=== PATIENT | male | born 1940 | race Hispanic/Latino ===

== ENCOUNTER 2016-05-20 21:12 | Inpatient (IN) | payer MEDICARE ==
[2016-05-20] MEDS ORDERED: ATROPINE IV ONE (23:45)
--- NOTE | 2016-05-20 23:48 | Emergency Department Report ---
ED Abdominal Pain HPI - General Chief Complaint: Abdominal Pain Stated Complaint: CONSTIPATION/FOOT SWELLING Time Seen by Provider: 05/20/16 23:28 Source: patient Mode of arrival: Ambulatory Limitations: No Limitations - History of Present Illness Initial Comments: This is a 75-year-old gentleman who reports some increasing abdominal pain since Tuesday. He reports seeing his physician on Tuesday for the abdominal discomfort as well as on Tuesday. He was noted when he was in the sun Tuesday to have a slightly low heart rate at 54. He was told that if likely due to the eyedrops that he is on for his glaucoma. Patient reports having less frequent stooling but is still soft. He reports normal urination. He also reports some increased edema of his lower extremities over the same time period. He denies any chest pain he has had occasional shortness of breath. He denies any fevers. No nausea or vomiting. Normal appetite. Location: diffuse Migration to: no migration Severity: moderate Severity scale (0 -10): 9 Quality: dull Consistency: constant Improves With: nothing Worsens With: nothing Associated Symptoms: denies: nausea, vomiting, diarrhea, fever - Related Data Home Medications Medication Instructions Recorded Confirmed Last Taken Aspirin [Adult Low Dose Aspirin EC] 81 mg PO QDAY 02/12/15 05/21/16 Unknown Multivitamin Tab [Multiple Vitamin 1 each PO QDAY 02/12/15 05/21/16 Unknown TAB (Theragran)] Albuterol 2 mg PO BID 05/21/16 05/21/16 Unknown Allergy 180 mg PO DAILY 05/21/16 05/21/16 Unknown Breo Ellipta 100-25 Mcg INH 1 puff IH 05/21/16 05/21/16 Unknown Dorzolamide HCl 1 drop OU TID 05/21/16 05/21/16 Unknown Latanoprost 0.005% 1 drop OU HS 05/21/16 05/21/16 Unknown Mucinex ER 1 tab PO BID 05/21/16 05/21/16 Unknown Stiolto Respimat Inhal [place] 1 puff IH HS 05/21/16 05/21/16 Unknown Ventolin HFA 2 puff IH Q6H PRN 05/21/16 05/21/16 Unknown methylPREDNISolone 24 mg PO DAILY 05/21/16 05/21/16 Unknown Allergies Allergy/AdvReac Type Severity Reaction Status Date / Time No Known Allergies Allergy Unverified 06/20/14 04:03 ED Review of Systems ROS: Stated complaint: CONSTIPATION/FOOT SWELLING Other details as noted in HPI Comment: All other systems reviewed and negative Constitutional: denies: chills, fever Eyes: denies: eye pain, eye discharge, vision change ENT: denies: ear pain, throat pain Respiratory: shortness of breath. denies: cough, wheezing Cardiovascular: denies: chest pain, palpitations Endocrine: no symptoms reported Gastrointestinal: abdominal pain, other (decreased stooling). denies: nausea, diarrhea Genitourinary: denies: urgency, dysuria Musculoskeletal: other (pedal edema). 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 denies: headache, weakness, paresthesias Psychiatric: denies: anxiety, depression Hematological/Lymphatic: denies: easy bleeding, easy bruising ED Past Medical Hx - Past Medical History Additional medical history: GLAUCOMA, shingles. bronchitis - Social History Smoking Status: Former Smoker Substance Use Type: None - Medications Home Medications: Home Medications Medication Instructions Recorded Confirmed Last Taken Type Aspirin [Adult Low Dose Aspirin EC] 81 mg PO QDAY 02/12/15 05/21/16 Unknown History Multivitamin Tab [Multiple Vitamin 1 each PO QDAY 02/12/15 05/21/16 Unknown History TAB (Theragran)] Albuterol 2 mg PO BID 05/21/16 05/21/16 Unknown History Allergy 180 mg PO DAILY 05/21/16 05/21/16 Unknown History Breo Ellipta 100-25 Mcg INH 1 puff IH 05/21/16 05/21/16 Unknown History Dorzolamide HCl 1 drop OU TID 05/21/16 05/21/16 Unknown History Latanoprost 0.005% 1 drop OU HS 05/21/16 05/21/16 Unknown History Mucinex ER 1 tab PO BID 05/21/16 05/21/16 Unknown History Stiolto Respimat Inhal [place] 1 puff IH HS 05/21/16 05/21/16 Unknown History Ventolin HFA 2 puff IH Q6H PRN 05/21/16 05/21/16 Unknown History methylPREDNISolone 24 mg PO DAILY 05/21/16 05/21/16 Unknown History ED Physical Exam - General Limitations: No Limitations General appearance: alert, in no apparent distress - Head Head exam: Present: atraumatic, normocephalic - Eye Eye exam: Present: normal appearance, EOMI. Absent: scleral icterus - ENT ENT exam: Present: normal exam, normal orophraynx, mucous membranes moist - Neck Neck exam: Present: normal inspection, full ROM, other (no jvd). Absent: meningismus, lymphadenopathy - Respiratory Respiratory exam: Present: normal lung sounds bilaterally. Absent: respiratory distress, wheezes, rales - Cardiovascular Cardiovascular Exam: Present: regular rate, normal rhythm. Absent: systolic murmur, diastolic murmur, rubs, gallop - GI/Abdominal GI/Abdominal exam: Present: soft, distended, tenderness (diffusely), normal bowel sounds. Absent: organomegaly - Rectal Rectal exam: Present: deferred - Extremities Exam Extremities exam: Present: normal inspection, normal capillary refill. Absent: tenderness, pedal edema, calf tenderness - Back Exam Back exam: Present: normal inspection. Absent: tenderness, CVA tenderness (R), CVA tenderness (L) - Neurological Exam Neurological exam: Present: alert, oriented X3 - Psychiatric Psychiatric exam: Present: normal affect, normal mood - Skin Skin exam: Present: warm, dry, intact, normal color. Absent: rash ED Course Vital Signs 05/20/16 05/20/16 05/20/16 22:11 22:34 23:48 Temperature 98.7 F 98.7 F Pulse Rate 98 H 98 H Respiratory 20 20 16 Rate Blood Pressure 172/68 Blood Pressure 172/68 [Right] O2 Sat by Pulse 96 98 100 Oximetry 05/21/16 05/21/16 05/21/16 00:00 01:00 02:00 Temperature Pulse Rate 26 L 26 L 26 L Respiratory 16 18 20 Rate Blood Pressure Blood Pressure 145/66 138/78 134/76 [Right] O2 Sat by Pulse 100 97 96 Oximetry - Reevaluation(s) Reevaluation #1: 05/20/16 23:28 ECG at 2259 with junctional bradycardia 27 bpm. QRS is prolonged at 118 ms with an incomplete right bundle-branch block noted. Anterior fascicular block is noted as well. Left axis is noted. Otherwise no specific acute ST segment changes are noted. Reevaluation #2: 05/21/16 03:47 Labs related to the bili were noted. They were unremarkable in general. LFTs were normal. Likely studies were unremarkable as well. I did elect to do CT abdomen due to the unclear nature of his abdominal pain. This was ultimately unremarkable study in general. There is some cholelithiasis noted but otherwise unremarkable. There is a moderate amount of left-sided gas gaseous distention in the colon but otherwise unremarkable. The patient's primary pain is in the left side. He did have trauma to that left side a couple of days ago from fall. It does cause me to positive question whether he fall due to the bradycardia. Nevertheless he does have some tenderness with palpation in that area and I do question whether he could have a nondisplaced rib fracture in this area as well. I cannot clearly see that on CT study however. I do not see any other concerning findings however on CT study. In regard to the bradycardia, I did give 1 mg of atropine without any change whatsoever with the rate. She continues to be junctional here he is continued to be very comfortable with that rate. His troponin is noted to be slightly elevated 0.026. BNP is also noted be elevated. On the CT study does not demonstrate significant vascular congestion. I do feel he will benefit from Lasix I do question as well as getting some cardiac irritation due to the bradycardia but he seems to be mentating quite well and seems to be very comfortable in general as well as blood pressure is excellent. Hard for me to justify that he doesn't have a good perfusing rhythm with him mentating so well. I did speak with the hospitalist. Patient will be admitted to telemetry for continued evaluation and care. Given Lasix here as well as some pain medication for his abdominal pain. ED Medical Decision Making - Lab Data Result diagrams: 05/20/16 23:13 05/20/16 23:13 - Radiology Data interpreted by me: Mild bibasilar atelectasis. Normal cardiac silhouette. Normal mediastinum. No infiltrate. Critical Care Time: Yes Critical care time in (mins) excluding proc time.: 40 Critical care attestation.: If time is entered above; I have spent that time in minutes in the direct care of this critically ill patient, excluding procedure time. ED Disposition Clinical Impression: Bradycardia, Pedal edema Abdominal pain Qualifiers: Abdominal location: left upper quadrant Qualified Code(s): R10.12 - Left upper quadrant pain Disposition: OP ADMITTED IP TO THIS HOSP Is pt being admited?: Yes Does the pt Need Aspirin: No Condition: Stable Referrals: PRIMARY CARE, [Primary Care Provider] - 3-5 Days Time of Disposition: 03:54
[2016-05-20 23:49] LABS: Bilirubin,Urine NEG (Negative); Blood,Urine SM (Negative); Ketones,Urine NEG (Negative); Leukocyte Esterase,Urine NEG (Negative); Mucus,Urine FEW /HPF; Nitrite,Urine NEG (Negative); Protein,Urine <15 mg/dL mg/dL (Negative); RBC,Urine < 1.0 /HPF (0.0-6.0); Urobilinogen,Urine < 2.0 mg/dL (<2.0); WBC,Urine < 1.0 /HPF (0.0-6.0)
[2016-05-20] MEDS ORDERED: ATROPINE 0.1% (CARDIAC) ONE (23:49)
[2016-05-20 23:50] LABS: Hematocrit 43.5 % (35.5-45.6); Hemoglobin 13.7 gm/dl (11.8-15.2); Mean Corpuscular HGB Conc 32 % (32-34); Mean Corpuscular Hemoglobin 29 pg (28-32); Mean Corpuscular Volume 93 fl (84-94); Platelet Count 225 K/mm3 (140-440); Red Blood Count 4.67 M/mm3 (3.65-5.03); White Blood Count 16.5 K/mm3 (4.5-11.0)
[2016-05-20 23:52] LABS: Creatine Kinase MB 3.8 ng/mL (0.0-4.0)
[2016-05-20 23:55] LABS: Alanine Aminotransferase 308 units/L (7-56); Albumin 3.8 g/dL (3.9-5); Albumin/Globulin Ratio 1.5 %; Alkaline Phosphatase 102 units/L (35-129); Anion Gap 20 mmol/L; BUN/Creatinine Ratio 22.72; Bilirubin,Total 0.3 mg/dL (0.1-1.2); Blood Urea Nitrogen 25 mg/dL (9-20); Calcium 9.3 mg/dL (8.4-10.2); Carbon Dioxide 20 mmol/L (22-30); Chloride 107.2 mmol/L (98-107); Glucose 109 mg/dL (75-100); Lipase 36 units/L (13-60); Potassium 4.5 mmol/L (3.6-5.0); Sodium 143 mmol/L (137-145); Total Protein 6.4 g/dL (6.3-8.2)
[2016-05-21] MEDS ORDERED: NACL ONE (01:46)
--- NOTE | 2016-05-21 03:01 | Cat Scan Report ---
FINAL REPORT PROCEDURE: CT ABDOMEN PELVIS W CON TECHNIQUE: Computerized axial tomography of the abdomen and pelvis was performed after the IV injection of iodinated nonionic contrast. HISTORY: abd pains diffusely LUQ PAIN FALL X 3DAYS COMPARISON: No prior studies are available for comparison. FINDINGS: Visualized lower thorax: There is mild atelectasis in both lower lungs. Mild right effusion is seen.. Liver: Normal size and attenuation. Spleen: Normal size and attenuation. Gallbladder and biliary system: Stones within the gallbladder lumen are suspected. Further differentiation with ultrasound is recommended. No dilatation of the biliary ductal system. Pancreas: Normal. Adrenals: The adrenal glands appear slightly hypertrophied.. Kidneys: Kidneys have a normal size. No hydronephrosis. No renal stones or masses. GI tract: Stomach is normal. Small bowel has a normal caliber. No obstruction, ileus or enteritis.. Lymph nodes and mesentery: Normal. Vasculature: Normal. Bladder: Normal. Reproductive organs: Normal. Peritoneum: No free fluid. Musculoskeletal structures: No significant abnormality. Other: None. IMPRESSION: There is no evidence of intestinal or urinary tract obstruction. No ileus or enteritis. Suspected cholelithiasis. Further differentiation with ultrasound and possibly HIDA scan may be appropriate.
[2016-05-21] MEDS ORDERED: LASIX IV ONE (03:45)
[2016-05-21] MEDS ORDERED: ASPIRIN PO ONE (03:45)
[2016-05-21] MEDS ORDERED: MORPHINE IV ONE (03:45)
[2016-05-21 05:54] LABS: Anisocytosis 1+; Basophils % (Manual) 0 % (0.0-1.8); Blastocytes % (Manual) 0 %; Diff Status Complete; Eosinophils % (Manual) 0 % (0.0-4.3)
[2016-05-21] MEDS ORDERED: ROCEPHIN/NS 1 GM/50 ML 1 GM/50 ML BAG IV ONE (06:03)
[2016-05-21] MEDS ORDERED: ZOFRAN IV PRN (06:03)
[2016-05-21] MEDS ORDERED: ATROPINE IV PRN (07:40)
--- NOTE | 2016-05-21 07:47 | History and Physical Report ---
History of Present Illness Date of examination: 05/21/16 Date of admission: 05/21/16 03:56 Chief complaint: Abdominal pain, constipation and bradycardia History of present illness: Very pleasant 75-year-old male patient with significant past medical history of glaucoma , chronic bronchitis presented to the emergency room with the vague abdominal pain of 2-3 days' duration patient has seen his primary care physician 2 days ago when his heart rate was in 50s and he was asked to stop his eyedrops which was prescribed for glaucoma Patient has vague abdominal pain and constipation and lower extremity edema Patient denies any chest pain or shortness of breath Denies headache complains of mild dizziness Denies nausea vomiting History of coronary artery disease In the emergency room patient had sudden episode of bradycardia with heart rate ranging in 20s to 30s Received atropine with the minimal improvement Heart rate remained in 20s, patient did not have any syncope or near syncope episode except for generalized weakness and mild dizziness EKG bradycardia with heart rate of 27 bpm QRS 118 and incomplete right bundle branch block and nonspecific ST-T changes That of cardiac enzymes negative, elevated BNP Past History Past Medical History: hypertension, other (glaucoma, bronchitis, shingles) Past Surgical History: No surgical history Social history: lives with family, smoking (quit few years ago), full code. denies: alcohol abuse, prescription drug abuse Family history: hypertension Medications and Allergies Allergies Allergy/AdvReac Type Severity Reaction Status Date / Time No Known Allergies Allergy Unverified 06/20/14 04:03 Home Medications Medication Instructions Recorded Confirmed Last Taken Type Aspirin [Adult Low Dose Aspirin EC] 81 mg PO QDAY 02/12/15 05/21/16 Unknown History Multivitamin Tab [Multiple Vitamin 1 each PO QDAY 02/12/15 05/21/16 Unknown History TAB (Theragran)] Albuterol 2 mg PO BID 05/21/16 05/21/16 Unknown History Allergy 180 mg PO DAILY 05/21/16 05/21/16 Unknown History Breo Ellipta 100-25 Mcg INH 1 puff IH HS 05/21/16 05/21/16 Unknown History Dorzolamide HCl 1 drop OU TID 05/21/16 05/21/16 Unknown History Latanoprost 0.005% 1 drop OU HS 05/21/16 05/21/16 Unknown History Mucinex ER 1 tab PO BID 05/21/16 05/21/16 Unknown History Stiolto Respimat Inhal [place] 1 puff IH HS 05/21/16 05/21/16 Unknown History Ventolin HFA 2 puff IH Q6H PRN 05/21/16 05/21/16 Unknown History methylPREDNISolone 24 mg PO DAILY 05/21/16 05/21/16 Unknown History Active Meds: Active Medications Aspirin (Halfprin Ec) 81 mg PO QDAY ESTUARDO Atropine Sulfate (Atropine) 1 mg IV ONCE PRN PRN Reason: Bradycardia Ondansetron HCl (Zofran) 4 mg IV Q4H PRN PRN Reason: Nausea And Vomiting Review of Systems Constitutional: weakness, no weight loss, no weight gain, no fever, no chills Eyes: bilateral: blurred vision (no blurring vision), photophobia (no photophobia) Ears, nose, mouth and throat: no nasal congestion, no nasal discharge Cardiovascular: lightheadedness, no chest pain, no orthopnea, no palpitations, no shortness of breath Respiratory: no cough with sputum, no shortness of breath Gastrointestinal: abdominal pain, constipation, no nausea, no vomiting Genitourinary Male: no dysuria, no hematuria Musculoskeletal: no myalgias, no arthritis Integumentary: no rash, no lesions Neurological: weakness, no seizures, no syncope Psychiatric: no anxiety, no depression Endocrine: no cold intolerance, no heat intolerance, no polydipsia, no polyuria Hematologic/Lymphatic: no easy bruising, no easy bleeding Allergic/Immunologic: no urticaria, no allergic rhinitis Exam - Constitutional Vitals: Temp Pulse Resp BP Pulse Ox 98 F 28 L 14 154/39 93 05/21/16 06:30 05/21/16 07:31 05/21/16 07:31 05/21/16 07:31 05/21/16 07:31 General appearance: Present: no acute distress, well-nourished - EENT Eyes: Present: PERRL, EOM intact - Neck Neck: Present: supple, normal ROM - Respiratory Respiratory effort: normal Respiratory: bilateral: diminished, negative: rales, rhonchi, wheezing - Cardiovascular Rhythm: regular Heart Sounds: Present: S1 & S2 (bradycardia) - Extremities Extremities: no ischemia, pulses intact Peripheral Pulses: within normal limits - Abdominal General gastrointestinal: Present: soft, non-tender, non-distended, normal bowel sounds - Integumentary Integumentary: Present: clear, warm - Musculoskeletal Musculoskeletal: strength equal bilaterally, generalized weakness - Psychiatric Psychiatric: appropriate mood/affect, cooperative - Neurologic Neurologic: CNII-XII intact, moves all extremities Results - Labs CBC & Chem 7: 05/20/16 23:13 05/20/16 23:13 Assessment and Plan --Severe bradycardia Probably secondary to beta bea eyedrops which patient health 2 days ago Atropine as needed, possible temporary pacemaker Echocardiogram LV function and ejection fraction, continuous cardiac monitoring , supportive care Cardiology consultation discussed with Dr. Moreira Cardiac enzymes and EKG --Abdominal pain/constipation Supportive care with the pain medications and stool softeners --History of bronchitis Oxygen titrated to O2 sats more than 90% Nebulizers as needed --Transaminitis Closely monitor liver function, consider HIDA scan And GI evaluation if needed --Cholelithiasis on CT abdomen We'll check abdominal ultrasound/HIDA scan To rule out acute cholecystitis --Leukocytosis Probably stress related, however rule out sepsis Closely monitor --History of glaucoma Hold eyedrops at this point, resume once his heart rate is stabilized --DVT prophylaxis with Lovenox --Full CODE STATUS Disposition admit to ICU for close observation Follow cardiology evaluation and recommendations Closely monitor the patient and adjust the management as needed Patient's condition treatment plan discussed in detail with the patient family member at the bedside His nurse as well as the paper testing supervisor Critical care time 40 minutes
--- NOTE | 2016-05-21 07:48 | Admit Criteria Form ---
Admission Criteria Documentation: INTENSIVE CARE UNIT ADMISSION Intensive Care Admission Guidelines ( Place 'X' for any and all applicable criteria): Admission to ICU may be indicated when need is demonstrated by ANY ONE of the following (1)(2)(3)(4)(5)(6)(7)(8)(9) : [X ]I. Vital sign abnormalities, including ANY ONE of the following: [ ]a) Systolic arterial pressure less than 90 mm Hg, or 20 mm Hg below the patient's usual pressure [ ]b) Diastolic arterial pressure greater than 120 mm Hg [ ]c) Mean arterial pressure less than 70 mm Hg [A] [ X]d) Pulse less than 40 or greater than 140 beats per minute (in adult) [ ]e) Respiratory rate greater than 35 or less than 8 breaths per minute [ ]II. Laboratory findings (new), including ANY ONE of the following (10): [ ]a) Saturation of arterial oxygen less than 88% or partial pressure of oxygen less than 60 mm Hg (8.0 kPa) despite oxygen supplementation [ ]b) Rising partial pressure of carbon dioxide with respiratory acidosis [ ]c) pH less than 7.2 or greater than 7.65 [ ]d) Serum glucose greater than 800 mg/dL (44.4 mmol/L) [ ]e) Serum sodium less than 110 mEq/L (mmol/L) or greater than 160 mEq/L (mmol/L) [ ]f) Serum potassium less than 2 mEq/L (mmol/L) or greater than 7 mEq /L (mmol/L) [ ]g) Serum calcium greater than 15 mg/dL (3.75 mmol/L) [ ]h) Serum phosphorus less than 1 mg/dL (0.32 mmol/L) [ ]i) Toxic drug level or poisoning causing or likely to cause neurologic or Hemodynamic instability [ ]j) Less severe laboratory abnormalities contributing to ANY ONE of the following: [ ]i) Seizure [ ]ii) Altered mental status [ ]iii) Muscle weakness [ ]iv) Arrhythmias [ ]v) Hemodynamic instability [ ]vi) Other significant clinical manifestations [ ]III. Electrocardiogram (or cardiac monitoring) findings, including ANY ONE of the following: [ ]a) Inherently unstable or life-threatening arrhythmia (eg, sustained ventricular tachycardia, ventricular fibrillation, asystole) [ ]b) Arrhythmia causing severe hypotension (eg, bradycardia, tachycardia) [ ]c) Complete heart block causing severe hypotension [ ]d) Other findings indicative of a need for intensive care (eg , PA) [ ]IV.Physical findings, including ANY ONE of the following: [ ]a) Threatened airway [ ]b) Sudden altered mental status [ ]c) Repeated or prolonged seizures [ ]d) Coma [ ]e) New-onset anuria (urine output <0.1 mL/kg/hr over 4 h) [ ]f) Cyanosis (new) [ ]g) Cardiac tamponade [ ]h) Status post respiratory or cardiac arrest [ ]i) Severe lora (eg, partial thickness lora over more than 10% of body surface, third-degree lora) [ ]j) Findings consistent with abdominal emergency (eg, peritoneal signs) [ ]V.Imaging findings, such as dissecting aneurysm or ruptured viscus [ ].Specific intervention or monitoring needed, as indicated by ANY ONE of the following: [ ]a) New need for assisted ventilation, invasive or noninvasive(11) [ ]b) New need for intubation (eg, to protect airway) [ ]c) New tracheostomy (less than 48 hours old) [ ]d) Hourly vital signs or neurologic checks [ ]e) Pulmonary artery line monitoring needed [ ]f) Continuous arterial line monitoring needed [ ]g) Continuous IV vasoactive drugs [ ]h) Continuous IV antiarrhythmics [ ]i) Large volume IV fluid resuscitation (eg, greater than 6 L per day ) [ ]j) Large or rapid transfusion needs (eg, more than 6 units within 24 hours) [ ]k) High-risk IV treatment, such as bolus IV medicatns or mannitol infusion [ ]l) Acute cardiac pacing [ ]m) Intra-aortic balloon pump [ ]n) Ventricular assist device [ ]o) Cardioversion [ ]p) Pericardiocentesis [ ]q) Hemodialysis in unstable patient [ ]r) Continuous renal replacement therapy (eg, continuous veno-venous hemofiltration) [ ]s) Peritoneal dialysis initiation [ ]t) Emergency bronchoscopic therapy (eg, for hemoptysis) [ ]u) Emergency endoscopic therapy for bleeding [ ]v) Balloon tamponade for variceal bleeding [ ]w) Intracranial pressure monitoring or tissue oxygen monitoring [ ]x) Ventriculostomy monitoring [ ]y) Treatment of ongoing seizures [ ]z) Induced hypothermia or coma [ ]aa) Ongoing frequent testing and treatment for acute conditions, including ANY ONE of the following: [ ]i) Correction of severe metabolic acidosis/ alkalosis [ ]ii). Severe fluid overload [ ]iii) Cerebral edema [ ]iv) Monitoring or suctioning for respiratory insufficiency or acidosis [ ]v) Monitoring for active bleeding [ ]bb) Rapid desensitization for high-risk hypersensitivity reaction to required medication (eg, penicillin)(12) [ ]cc) Other need for treatment or monitoring not available outside the ICU [ ]VII.Cardiology diagnoses or procedures, including ANY ONE of the following (13)(14)(15)(16)(17): [ ]a) Chest pain with ANY ONE of the following: [ ]i) Hemodynamic instability [ ]ii) Suspicion of diagnoses needing ICU care (eg, aortic dissection) [ ]iii) New unstable or symptomatic arrhythmia or ECG finding (eg, ventricular tachycardia, ventricular fibrillation, advanced heart block) [ ]iv) Syncope or near-syncope [ ]v) SBP less than 100 mm Hg [ ]vi) Pulmonary edema thought to be due to ischemia [ ]vii) New or worsening mitral regurgitation murmur, S3 , or rales [ ]b) Acute PA with complications as indicated by ANY ONE of the following: [ ]i) Persistent chest pain [ ]ii) Hemodynamic instability [ ]iii) New unstable or symptomatic arrhythmia or ECG finding (eg, ventricular tachycardia, ventricular fibrillation, advanced heart block) [ ]iv) Syncope or near-syncope [ ]v) Pulmonary edema thought to be due to ischemia [ ]vi) New or worsening mitral regurgitation murmur, S3 , or rales [ ]vii) New-onset bundle branch block [ ]viii) Hemorrhagic complication (eg, intracranial or access site bleed following thrombolysis) [ ]c) Cardiac arrhythmia or conduction defect with Hemodynamic instability [ ]d) Complication of cardiac ablation, including ANY ONE of the following(18): [ ]i) Pericardial tamponade [ ]ii) Hemodynamic instability [ ]iii) Thromboembolic stroke [ ]iv) Aortic valve injury [ ]v) Vascular injuries [ ]vi) Esophageal perforation [ ]vii) Severe arrhythmia [ ]viii) Air embolism [ ]ix) Other severe complication [ ]e) Cardiogenic shock [ ]f) Hypertensive emergency, with need for ANY ONE of the following(19): [ ]i) IV antihypertensive therapy [ ]ii) Invasive hemodynamic monitoring (eg, arterial line) [ ]g) Pericardial tamponade [ ]h) Severe heart failure, with ANY ONE of the following(15): [ ]i) Respiratory failure [ ]ii) Cardiogenic shock [ ]iii) Severe arrhythmias [ ]iv) Evidence of cardiac ischemia [ ]i Myocarditis, with ANY ONE of the following [ ]i) Hemodynamic instability [ ]ii) Respiratory failure [ ]iii) Severe arrhythmias [ ]iv) Need for cardiac assist device (eg, left ventricular assist device or extracorporeal membrane oxygenator) [ ]j) Status post cardiac arrest(20) [ ]VIII. Cardiovascular Surgery diagnoses or procedures, including ANY ONE of the following.(21)(22): [ ]a) Acute aortic dissection [ ]b) Aortic surgery for ANY ONE of the following: [ ]i) Thoracic aneurysm [ ]ii) Abdominal aneurysm with ANY ONE of the following(23): [ ]1) Emergency repair [ ]2) Severe cardiopulmonary disease [ ]3) Dialysis-dependent renal failure [ ]4) Need for IV blood pressure control [ ]5) Need for ongoing ventilatory support [ ]6) Perioperative complications, including ANY ONE of the following: [ ]A. Sustained Hemodynamic instability [ ]B. Cardiac ischemia or arrhythmia [ ]C. Hypothermia (less than 35 degrees C (95 degrees F)) [ ]D. Blood transfusion greater than 3 L [ ]iii) Aortic coarctation operative excision or repair [ ]iv) Aortofemoral or aortoiliac bypass with ANY ONE of the following: [ ]1) Continued intubation [ ]2) Hemodynamic instability [ ]3) Need for IV blood pressure control [ ]4) Severe cardiopulmonary disease [ ]c) Cardiac surgery [ ]d) Carotid endarterectomy or stent placement with ANY ONE of the following: [ ]i) Blood pressure <100/60 mm Hg or >160/90 mm Hg despite 4 h of postanesthetic management [ ]ii) New or progressive neurologic defect [ ]iii) Chest pain [ ]iv) Continued intubation [ ]v) Heart failure [ ]vi) Airway compromise by hematoma or vocal cord paralysis [ ]vi) Need for IV blood pressure control [ ]e) Heart transplant [ ]f) Infrainguinal peripheral vascular surgery with ANY ONE of the following: [ ]i) Hemodynamic instability [ ]ii) Acute complications such as persistent chest pain or respiratory distress [ ]iii) Requirement for IV antiarrhythmic or vasoactive agent [ ]iv) Requirement for pulmonary artery catheter [ ]v) Severe hypertension despite 6 hours of recovery room management [ ]g) Complications of any surgery requiring ICU intervention as indicated by ANY ONE of the following(24): [ ]i) Hemodynamic instability [ ]ii) Myocardial infarction with complications (eg, severe arrhythmia, hypotension) [ ]iii) Excessive bleeding or severe coagulopathy [ ]iv) Respiratory failure [ ]v) Renal failure [ ]vi) Airway instability or obstruction [ ]vii) Neurologic deterioration [ ]viii) Infection with likelihood of sepsis syndrome or significant fluid shifts [ ]IX.Endocrinology diagnoses or procedures, including ANY ONE of the following(25)(26): [ ]a) Adrenal crisis with Hemodynamic instability(27) [ ]b) Pheochromocytoma with ANY ONE of the following(28): [ ]i) Hypertensive crisis [ ]ii) Postoperative Hemodynamic instability [ ]iii) Need for IV vasoactive therapy [ ]iv) Need for invasive arterial or central venous pressure monitoring [ ]v) Organ ischemia [ ]c) Diabetic hyperosmolar state with obtundation or coma [ ]d) Diabetic ketoacidosis with ANY ONE of the following: [ ]i) Serum pH less than 7.10 or bicarbonate level less than 10 mEq/L (mmol/L) [ ]ii) Rapidly changing electrolytes [ ]iii) Hypotension [ ]iv) Requirement for large-volume fluid resuscitation [ ]v) Respiratory insufficiency [ ]vi) Life-threatening cardiac dysrhythmias [ ]vii) Obtundation [ ]viii) Severe precipitating condition such as sepsis, stroke, or acute PA [ ]e) Severe hypoglycemia requiring continuous glucose infusion with frequent adjustment or glucagon infusion [ ]f) Hyperthyroidism associated with thyroid storm (also known as thyrotoxic crisis)(29) [ ]g) Myxedema with life-threatening neurologic, cardiovascular, electrolyte, or renal dysfunction(29) [ ]h) Diabetes insipidus that cannot be controlled with routine medication (30) [ ]X. Gastroenterology diagnoses or procedures, including ANY ONE of the following: [ ]a) Esophageal perforation(31) [ ]b) Severe caustic esophageal injury(31) [ ]c) Liver disease complications with ANY ONE of the following(32): [ ]i) Severe hepatic encephalopathy (eg, stage 3 (somnolent) or higher) [ ]ii) Type 1 hepatorenal syndrome [ ]iii) Other cirrhosis-associated causes of acute renal failure ( eg, severe hypovolemia, acute tubular necrosis, abdominal compartment syndrome) [ ]iv) Hemodynamic instability [ ]v) Respiratory insufficiency due to severe ascites [ ]vi) Sepsis due to spontaneous bacterial peritonitis [ ]d) Fulminant hepatic failure when aggressive intervention or transplant is anticipated (32) [ ]e) Gastrointestinal hemorrhage (upper or lower) with ANY ONE of the following(33)(34): [ ]i) Active ongoing bleeding [ ]ii) Transfusion requirement greater than 2 units of packed red cells [ ]iii) Bleeding ulcer or nonbleeding visible vessel seen on endoscopy [ ]iv) Bleeding ulcer, visible blood vessel, bleeding (or recently bleeding) esophageal varices seen on endoscopy [ ]v) Hypotension [ ]vi) Syncope [ ]vii) Coagulopathy [ ]viii) Hepatic cirrhosis [ ]ix) Abnormal mental status [ ]x) Unstable comorbid condition or end organ dysfunction [ ]xi) Ischemia due to poor perfusion [ ]xii) Need for hemodynamic monitoring (eg, for patients with heart failure or valvular disease) [ ]f) Severe pancreatitis indicated by ANY ONE of the following (35)(36): [ ]i) Requirement for aggressive fluid resuscitation [ ]ii) Life-threatening electrolyte abnormality [ ]iii) SBP less than 90 mm Hg [ ]iv) Persistent tachycardia greater than 120 beats per minute [ ]v) Patients at high risk of rapid deterioration, including ANY ONE of the following: [ ]1) Calculated [place] II score greater than 8 [ ]2) Age older than 55 years [ ]3) BMI greater than 30 [ ]4) Greater than 30% pancreatic necrosis on CT scan [ ]5) Admission hematocrit greater than 47% (0.47) [ ]vi) Organ failure as indicated by ANY ONE of the following: [ ]1) Serum creatinine greater than 1.9 mg/dL (168 micromoles/L) [ ]2) Requirement for mechanical ventilation [ ]3) Urine output less than 50 mL/hour [ ]4) Arterial partial pressure of oxygen less than 60 mm Hg (8.0 kPa) despite supplemental oxygen [ ]5) PiO2/FiO2 ratio less than 300 [ ]vii) Expanding pseudocyst [ ]viii) Infected pancreas [ ]ix) Pleural effusion [ ]x) Encephalopathy [ ]xi) Severe comorbidities [ ]XI. General Surgery diagnoses or procedures, including ANY ONE of the following (9)(24)(37): [ ]a) Acute abdominal catastrophe (eg, ischemic bowel, perforated viscus, abdominal compartment syndrome) [ ]b) Complications of any surgery requiring ICU intervention as indicated by ANY ONE of the following: [ ]i) Hemodynamic instability [ ]ii) PA with complications (eg, severe arrhythmia, hypotension) [ ]iii) Excessive bleeding or severe coagulopathy [ ]iv) Respiratory failure [ ]v) Renal failure [ ]vi) Airway instability or obstruction [ ]vii) Neurologic deterioration [ ]viii) Infection with likelihood of sepsis syndrome or significant fluid shifts [ ]c) Multiple trauma with complicating features as indicated by ANY ONE of the following(38): [ ]i) Impending acute respiratory failure due to lung contusion, unstable chest wall, aspiration, or hemorrhage [ ]ii) Facial or neck injury threatening airway patency [ ]iii) Cardiac contusion [ ]iv) Pericardial effusion [ ]v) Bronchial tear [ ]vi) Hemodynamic instability [ ]vii) Rhabdomyolisis requiring large volume IV fluid resuscitation [ ]viii)Other significant complicating feature [ ]d) Organ transplant(39)(40) [ ]e) Esophagectomy(31) [ ]f) Whipple procedure [ ]g) Preoperative or postoperative patients requiring ICU intervention, such as hemodynamic optimization, pulmonary artery monitoring, mechanical ventilation, or extensive nursing care [ ]h) Obesity surgery patients with ANY ONE of the following(41): [ ]i) ICU management needs for comorbid conditions, such as sleep apnea or airway management needs [ ]ii) Failed postoperative extubation [ ]iii) Intraoperative complications [ ]XII. Nephrology diagnoses or procedures, including acute, or acute on chronic renal insufficiency with ANY ONE of the following(44)(45): [ ]a) Life-threatening electrolyte or acid-base disorder [ ]b) Acute pulmonary edema [ ]c) Hypotension or significant volume depletion [ ]d) Hypertensive emergency [ ]e) Underlying critical illness contributing to renal failure (eg, septic shock, hepatorenal syndrome) [ ]f) Need for continuous renal replacement therapy [ ]XIII. Neurology diagnoses or procedures, including ANY ONE of the following (46)(47) [B] : [ ]a) Intracranial hypertension requiring ANY ONE of the following(49 ): [ ]i) Induced barbiturate coma [ ]ii) Pharmacologic paralysis or deep sedation and mechanical ventilation [ ]iii) Intracranial pressure or cerebral perfusion pressure monitoring [ ]iv) IV mannitol or hypertonic saline [ ]v) Frequent serum osmolality measurements [ ]b) Seizures with ANY ONE of the following(50): [ ]i) Status epilepticus [ ]ii) Airway compromise requiring or likely to require mechanical ventilation [ ]iii) Severe electrolyte abnormalities causing seizures [ ]c) Progressive acute neurologic dysfunction requiring or likely to require ANY ONE of the following: [ ]i) Mechanical ventilation [ ]ii) Intracranial pressure or cerebral perfusion pressure monitoring [ ]d) Meningitis with obtundation or respiratory insufficiency [C])(51 ) [ ]e) Stroke with ANY ONE of the following(52)(53): [ ]i) Need for observation after thrombolysis [ ]ii) Altered mental status [ ]iii) Need for mechanical ventilation [ ]iv) Elevated intracranial pressure [ ]v) Hypertensive emergency [ ]vi) High risk of progressive infarction or deterioration based on CT scan or MRI [ ]vii) Hemorrhage [ ]f) Acute coma [ ]g) Acute spontaneous intracranial hemorrhage(53)(54) [ ]h) Drug ingestion with ANY ONE of the following(56)(57): [ ]i) Hemodynamic instability [ ]ii) Respiratory depression (partial pressure of carbon dioxide >45 mm Hg (6.0 kPa), new) [ ]iii) Patient requires or is likely to require mechanical ventilation. [ ]iv) Arrhythmias [ ]v) Seizures [ ]vi) Altered mental status (Jenelle coma scale score less than 12, new) [ ]vii) Significant risk for acute deterioration (eg, toxic level of hypotension or arrhythmia-producing drug) [ ]viii) Drug-induced hypothermia or hyperthermia [ ]ix) Increasing metabolic acidosis [ ]x) Severe hypoglycemia requiring glucose infusion with frequent adjustment or glucagon administration [ ]xi) Ongoing antidote administration (eg, continuous naloxone infusion, organophosphate toxicity treatment) [ ]xii) Emergency intervention need (eg, dialysis, hemoperfusion, restraints) [ ]i) Brain with preparation for organ donation [ ]j) Traumatic brain injury with ANY ONE of the following(55): [ ]i) Altered mental status (eg, new onset Jenelle coma scale score less than 10) [ ]ii) Cerebral edema [ ]iii) Cerebral hemorrhage [ ]iv) Increased intracranial pressure [ ]XIV. Neurosurgery diagnoses or procedures, including ANY ONE of the following(49)(58)(59): [ ]a) Emergency craniotomy for tumor, hematoma, or trauma [ ]b) Elective craniotomy for posterior fossa tumor [ ]c) Elective craniotomy (supratentorial) for tumor with ANY ONE of the following: [ ]i) Postoperative neurologic deficit or impaired consciousness 6 hours after completion of procedure [ ]ii) SBP less than 110 mm Hg or greater than 180 mm Hg despite therapy [ ]iii) Extensive operative blood loss [ ]iv) High anesthesia risk (eg, [place] [employer] score greater than 3 [ ]d) Craniotomy for aneurysm with ANY ONE of the following: [ ]i) Postoperative neurologic deficit or impaired consciousness 6 hours after completion of procedure [ ]ii) Preoperative [place] grade 3 or higher [ ]iii) SBP less than 110 mm Hg or greater than 180 mm Hg despite therapy [ ]iv) Intracranial pressure monitoring [ ]e) Acute spinal cord injury [ ]f) Subarachnoid hemorrhage [ ]g) Traumatic brain injury with ANY ONE of the following: [ ]i) Acute mental status change (Jenelle coma scale score less than 10) [ ]ii) CT scan showing cerebral edema or hemorrhage [ ]iii) Intracranial pressure monitoring [ ]h) Complications of any surgery requiring ICU intervention as indicated by ANY ONE of the following(60): [ ]i) Hemodynamic instability [ ]ii) PA with complications (eg, severe arrhythmia, hypotension) [ ]iii) Excessive bleeding or severe coagulopathy [ ]iv) Respiratory failure [ ] v) Renal failure [ ]vi) Airway instability or obstruction [ ]vii) Neurologic deterioration [ ]viii) Infection with likelihood of sepsis syndrome or significant fluid shifts [ ]i) Preoperative or postoperative patients requiring ICU intervention, such as hemodynamic optimization, pulmonary artery monitoring, mechanical ventilation, or extensive nursing care [ ]XV.Obstetrics and Gynecology diagnoses or procedures, including ANY ONE of the ffg. (61)(62)(63): [ ]a) Severe peripartum condition as indicated by ANY ONE of the following: [ ]i) Eclampsia [ ]ii) Hypertensive emergency [ ]iii) HELLP syndrome (hemolysis, elevated liver enzymes, and low platelet count) [ ]iv) Pulmonary edema [ ]v) Respiratory failure [ ]vi) Pulmonary embolism [ ]vii) Anaphylactoid syndrome of (amniotic fluid embolus) [ ]viii) Ovarian hyperstimulation syndrome [D] [ ]ix) Acute fatty liver of (hepatic failure) [ ]x) Complications such as placental abruption or severe hemorrhage [ ]xi) Sepsis (eg, puerperal sepsis, chorioamnionitis, septic ) [ ]xii) cardiomyopathy with severe congestive heart failure (eg, respiratory failure, cardiogenic shock) [ ]b) Ruptured ectopic [ ]c) Complications of any surgery requiring ICU intervention as indicated by ANY ONE of the following: [ ]i) Hemodynamic instability [ ]ii) PA with complications (eg, severe arrhythmia, hypotension) [ ]iii) Excessive bleeding or severe coagulopathy [ ]iv) Respiratory failure [ ]v) Renal failure [ ]vi) Airway instability or obstruction [ ]vii) Neurologic deterioration [ ]viii) Infection with likelihood of sepsis syndrome or significant fluid shifts [ ]d) Preoperative or postoperative patients requiring ICU intervention , such as hemodynamic optimization, pulmonary artery monitoring, mechanical ventilation, or extensive nursing care [ ]XVI.Ophthalmology diagnoses or procedures, including ANY ONE of the following (64): [ ]a) Complications of any surgery requiring ICU intervention, such as ANY ONE of the following: [ ]i) Hemodynamic instability [ ]ii) PA with complications (eg, severe arrhythmia, hypotension) [ ]iii) Excessive bleeding or severe coagulopathy [ ]iv) Respiratory failure [ ]v) Renal failure [ ]vi) Airway instability or obstruction [ ]vii) Neurologic deterioration [ ]viii) Infection with likelihood of sepsis syndrome or significant fluid shifts [ ]b) Preoperative or postoperative patients requiring ICU intervention , such as hemodynamic optimization, pulmonary artery monitoring, mechanical ventilation, or extensive nursing care [ ]XVII.Orthopedics diagnoses or procedures, including ANY ONE of the following [phone]): [ ]a) Complications of any surgery requiring ICU intervention as indicated by ANY ONE of the following: [ ]i) Hemodynamic instability [ ]ii) PA with complications (eg, severe arrhythmia, hypotension) [ ]iii) Excessive bleeding or severe coagulopathy [ ]iv) Respiratory failure [ ]v) Renal failure [ ]vi) Airway instability or obstruction [ ] vii) Neurologic deterioration [ ]viii) Infection with likelihood of sepsis syndrome or significant fluid shifts [ ]b) Multiple trauma with complicating features as indicated by ANY ONE of the following(38): [ ]i) Impending acute respiratory failure due to lung contusion, unstable chest wall, pneumothorax, aspiration, or hemorrhage [ ]ii) Facial or neck injury threatening airway patency [ ]iii) Cardiac contusion [ ]iv) Rhabdomyolysis requiring large volume IV fluid resuscitation [ ]v) Pericardial effusion [ ]vi) Bronchial tear [ ]vii) Hemodynamic instability [ ]viii) Other significant complicating feature [ ]c) Threatened compartment syndrome [ ]d) Severe lora with ANY ONE of the following(68)(69)(70): [ ]i) Hypotension or requirement for aggressive fluid resuscitation [ ]ii) Respiratory insufficiency with requirement for high- flow oxygen or mechanical ventilation [ ]iii) Carbon monoxide poisoning [ ]iv) Life-threatening cardiac, renal, pulmonary, or neurologic dysfunction [ ]v) High-voltage (eg, 1000 volts or more) electrical burn [ ]vi) Requirement for frequent or intensive debridement and dressing changes; examples include: [ ]1) Partial thickness lora greater than 10% of body surface [ ]2) Lora on face, hands, feet, genitalia, perineum , or major joints [ ]3) Third-degree lora [ ]4) Any burn greater than 15% of body surface area [ ]vii) Inhalation lung injury [ ]viii) Concomitant trauma or other medical condition requiring ICU care [ ]e) Preoperative or postoperative patients requiring ICU intervention , such as hemodynamic optimization, pulmonary artery monitoring, mechanical ventilation, or extensive nursing care [ ]XVIII.Otolaryngology diagnoses or procedures, including ANY ONE of the following (71)(72): [ ]a) Complications of any surgery requiring ICU intervention as indicated by ANY ONE of the following: [ ]i) Hemodynamic instability [ ]ii) PA with complications (eg, severe arrhythmia, hypotension) [ ]iii) Excessive bleeding or severe coagulopathy [ ]iv) Respiratory failure [ ]v) Renal failure [ ]vi) Airway instability or obstruction [ ]vii) Neurologic deterioration [ ]viii) Infection with likelihood of sepsis syndrome or significant fluid shifts [ ]b) Airway or hemodynamic compromise that persists after 3 hours of observation in postanesthesia care unit following nasal, palate (eg, uvulopalatopharyngoplasty or palatoplasty), or tongue surgery for sleep apnea [ ]c) Preoperative or postoperative patient requiring ICU intervention, such as hemodynamic optimization, pulmonary artery monitoring, mechanical ventilation, or extensive nursing care [ ]d) Symptomatic upper airway compromise (eg, laryngeal edema, mass) [ ]e) Other airway-compromising procedure (eg, posterior nasal packing) [ ]XIX.Thoracic Surgery and Pulmonary Disease Diagnosis or procedures, including ANY ONE of the following(6): [ ]a) Asthma with ANY ONE of the following(73)(74): [ ]i) Impending or actual respiratory arrest [ ]ii) Need for mechanical ventilation [ ]iii) Peak expiratory flow rate less than 30% of predicted or personal best [ ]iv) Peak expiratory flow rate or FEV1 less than 40% predicted after 1 hour of initial treatment [ ]v) Acidosis [ ]vi) Persistent or worsening hypoxia after initial treatment [ ]vii) Hypercapnia (eg, partial pressure of carbon dioxide greater than 43 mm Hg (5.7 kPa)) [ ]viii) Severe drowsiness, confusion, or coma [ ]ix) Requiring continuous inhaled bronchodilator [ ]b) COPD with ANY ONE of the following(75): [ ]i) Need for assisted ventilation [ ]ii) Hemodynamic instability [ ]iii) Severe dyspnea unresponsive to initial treatment [ ]iv) Change in level of consciousness [ ]v) Persistent findings despite oxygen and outpatient management, including ANY ONE of the following: [ ]1) Partial pressure of oxygen less than 40 mm Hg ( 5.3 kPa) [ ]2) Partial pressure of carbon dioxide greater than 60 mm Hg (8.0 kPa) [ ]3) pH less than 7.25 [ ]4) Worsening hypoxemia or acidosis [ ]c) Cor pulmonale with ANY ONE of the following(75)(76)(77): [ ]i) Hemodynamic instability [ ]ii) Need for IV inotropic or vasoactive agent [ ]iii) Need for invasive hemodynamic monitoring (eg, central venous, pulmonary artery, or arterial catheter) [ ]iv) Hypoxemia with partial pressure of oxygen less than 40 mm Hg (5.3 kPa) [ ]v) Worsening hypoxemia or acidosis despite oxygen therapy [ ]vi) Need for assisted ventilation [ ]vii) Need for right ventricular assist device [ ]viii) Unstable atrial tachyarrhythmia [ ]ix) Need for inhaled nitric oxide [ ]d) Aspiration pneumonia with ANY ONE of the following(78): [ ]i) Acute respiratory distress syndrome (PaO2/FiO2 ratio of 300 or less) [ ]ii) Impending or actual respiratory arrest [ ]iii) Need for invasive or noninvasive mechanical ventilation [ ]e) Pneumocystis jiroveci pneumonia with ANY ONE of the following(79): [ ]i) Impending or actual respiratory arrest [ ]ii) Hypoxia (eg, PO260 mmGh (8.0 kPa) or less despite oxygen therapy) [ ]iii) Need for invasive or noninvasive mechanical ventilation [ ]f) Pneumonia with ANY ONE of the following(80)(81)(82): [ ]i) Need for invasive or noninvasive assisted ventilation [ ]ii) Hemodynamic instability [ ]iii) Severity factors as indicated by 3 or MORE of the following: [ ]1) Respiratory rate 30 breaths per minute or greater [ ]2) PaO2/FiO2 ratio of 250 or less [ ]3) Multilobed infiltrates [ ]4) Altered mental status [ ]5) BUN 20 mg/dL (7.1 mmol/L) or greater [ ]6) WBC count less than 4000/mm3 (4 x109/L) [ ]7) Platelet count <100,000/mm3 (100 x109/L) [ ]8) Temperature less than 36 degrees C (96.8 degrees F ) [ ]9) Hypotension requiring aggressive fluid resuscitation [ ]g) Pulmonary hypertension requiring initiation of parenteral pulmonary vasodilator or trial of inhaled nitric oxide (eg, need for right heart catheterization)(76) [ ]h) Impending respiratory failure as indicated by ANY ONE of the following: [ ]i) Respiratory rate greater than 30 or partial pressure of oxygen less than 60 mm Hg (8.0 kPa) on 50% oxygen or more [ ]ii) Partial pressure of carbon dioxide greater than 45 mm Hg (6.0 kPa) with pH less than 7.35 [ ]i) Respiratory failure with ANY ONE of the following (47): [ ]i) Need for invasive or noninvasive mechanical ventilation [ ]ii) High likelihood of requiring mechanical ventilation within 24 hours [ ]iii) Observation in the first several hours immediately after extubation from mechanical ventilation [ ]iv) Need for close observation and aggressive therapy, such as suctioning, chest physiotherapy, or inhalation treatments at intervals less than 1 hour [ ]v) Pharmacologic ventilatory paralysis [ ]j) Venous thromboembolism with need for systemic or catheter- directed thrombolysis (eg, for limb-threatening thrombosis, phlegmasia cerulea dolens) (83) [ ]k) Pulmonary embolus with ANY ONE of the following(83): [ ]i) Hypotension [ ]ii) Severe hypoxia [ ]iii) Dangerous arrhythmia [ ]iv) Bleeding [ ]v) Need for systemic or catheter-directed thrombolysis [ ]l) Lobectomy or other major thoracic surgery [ ]m) Lung transplant [ ]n) Symptomatic upper airway obstruction (eg, laryngeal edema, mass) [ ]o) Massive hemoptysis [ ]p) Infection or thrombosis of an intravenous device with ANY ONE of the following(6)(84): [ ]i) Hemodynamic instability [ ]ii) Requirement for frequent hemodynamic measurements [ ]iii) Shock [ ]iv) End organ dysfunction [ ] v) Acute renal failure due to missed dialysis [ ]vi) Unstable acute complication (eg, pericardial tamponade , tension pneumothorax) [ ]q) Traumatic rib fracture or fractures with ANY ONE of the following(85): [ ]i) Injury severity score of 19 or greater [ ]ii) Respiratory insufficiency [ ]iii) Flail chest [ ]iv) Sternum fracture [ ]v) Vascular injury (eg, heart or great vessels) [ ]r) Pleural effusion with ANY ONE of the following(86): [ ]i) Respiratory insufficiency [ ]ii) Hemothorax with active ongoing bleeding [ ]iii) Hemodynamic instability [ ]iv) Unstable comorbid condition (eg, sepsis or heart failure [ ]XX. Urology diagnoses or procedures, including ANY ONE of the following ( 87)(88): [ ]a) Renal transplant [ ]b) Complications of any surgery requiring ICU intervention as indicated by ANY ONE of the following: [ ]i) Hemodynamic instability [ ]ii) PA with complications (eg, severe arrhythmia, hypotension) [ ]iii) Excessive bleeding or severe coagulopathy [ ]iv) Respiratory failure [ ]v) Renal failure [ ]vi) Airway instability or obstruction [ ]vii) Neurologic deterioration [ ]viii) Infection with likelihood of sepsis syndrome or significant fluid shifts [ ]c) Preoperative or postoperative patients requiring ICU intervention , such as hemodynamic optimization, pulmonary artery monitoring, mechanical ventilation , or extensive nursing care [ ]XXI.Infectious Disease diagnoses or procedures, with ANY ONE of the following (6)(43): [ ]a) Hemodynamic instability [ ]b) Shock [ ]c) Requirement for frequent hemodynamic measurements (eg, arterial catheter, pulmonary artery catheter) [ ]d) Sepsis or suspected sepsis with end organ dysfunction (eg, acute kidney injury, acute respiratory distress syndrome) [ ]e) Necrotizing soft tissue infection [ ] XXII.Hematology - Oncology diagnoses or procedures, including chemotherapy administration with ANY ONE of the following(42): [ ]a) Hemodynamic instability [ ]b) Tumor lysis syndrome with ANY ONE of the following : [ ]1) Acute kidney injury [ ]2) Severe electrolyte abnormality [ ]3) Cardiac dysrhythmia [ ]XXIII. Systemic conditions, including ANY ONE of the following: [ ]a) Severe electrolyte or metabolic disturbance causing or likely to cause ANY ONE of the following(10)(89)(90): [ ]i) Life-threatening cardiac dysrhythmia [ ]ii) Respiratory insufficiency [ ]iii) Altered mental status [ ]iv) Seizures [ ]v) Hemodynamic instability [ ]vi) Muscular weakness [ ]b) Environmental injuries such as hypothermia, hyperthermia, electrical injuries, or near drowning(70)(91)(92) The original [facility] content created by [employer] has been revised. The portions of the content which have been revised are identified through the use of italic text or in bold, and [facility] has neither reviewed nor approved the modified material. All other unmodified content is copyright [employer]. Please see references footnoted in the original [facility] edition 2016 Admission Criteria Met: Yes
[2016-05-21] MEDS ORDERED: ATROPINE 0.1% (CARDIAC) ONE (09:17)
[2016-05-21] MEDS ORDERED: VERSED ONE (09:42)
[2016-05-21] MEDS ORDERED: SUBLIMAZE ONE (09:42)
[2016-05-21] MEDS ORDERED: HEPARIN/NS 5000 UNIT/500ML(CATH LAB) 500 ML IR ONE (09:42)
[2016-05-21] MEDS ORDERED: XYLOCAINE 2% INFILTRATI ONE ×2 (09:43→10:07)
[2016-05-21] MEDS ORDERED: DILAUDID ONE (09:58)
[2016-05-21] MEDS ORDERED: ATROPINE IV ONE (10:00)
[2016-05-21] MEDS: NACL 0.9% 1000 ML 1,000 ML IV SCH (10:04)
--- NOTE | 2016-05-21 10:19 | Consultation ---
HISTORY OF PRESENT ILLNESS: The patient is a 75-year-old white male with a history of hypertension, bronchitis, and probable COPD. He is a prior smoker. He presented with a chief complaint of abdominal pain and he was noted to have severe bradycardia, so Cardiology consult was requested. He has had abdominal pain for about 3 days with constipation. There has been no fever or chills, nausea, vomiting, or intestinal bleeding. There is no prior history of GI disorders. There is no major change in his weight, in fact he has gained a couple of pounds since he was placed on steroids for his bronchitis. He has had coughing, wheezing, and shortness of breath. He describes chronic dyspnea on exertion. There has been no heart disease or strokes. He has had trouble sleeping only recently. He did not describe any dizziness, syncope, or palpitations. There has been no chest pain, pressure, or sputum production. There is no history of thyroid issues. He takes medication for glaucoma, but otherwise he is not on any medications that will slow the heart rate such as beta blockers. PAST HISTORY: OPERATIONS: None. SMOKING: Prior smoker. ALCOHOL: No heavy use. FAMILY HISTORY: Hypertension. MEDICATIONS: See the nurse's list. ALLERGIES: None. REVIEW OF SYSTEMS: He did not describe any other significant medical problems or complaints. He did not describe any significant arthritis, GI disorders in the past, disorders, skin disorders, hormonal disorders. DIAGNOSTIC STUDIES: EKG shows sinus rhythm with right bundle branch block, left axis deviation, nonspecific ST-T changes. There is a 3:1 AV block and the [place] interval is approximately 200 milliseconds. IMPRESSION: 1. Severe bradycardia with 3:1 AV block, suspect sick sinus syndrome or AV block of some other etiology. We will recommend temporary pacemaker, check TSH, check cardiac enzymes, echocardiogram, and probable need for permanent pacemaker. 2. Chronic obstructive pulmonary disease with bronchitis. 3. Prior smoker. 4. Abdominal pain, only findings so far is possible cholelithiasis. 5. History of hypertension. Thank you for this consultation. We will follow the patient. JOB# [id number] JDS/NTS
--- NOTE | 2016-05-21 11:24 | Consultation ---
History of Present Illness Consult date: 05/21/16 Requesting physician: LESLY TSAI History of present illness: PULMONARY/CCM CONSULT NOTE (Full note dictated #[id number]) Please see dictated notes for full details Past History Past Medical History: hypertension, other (glaucoma, bronchitis, shingles) Past Surgical History: No surgical history Social history: lives with family, smoking (quit few years ago), full code. denies: alcohol abuse, prescription drug abuse Family history: hypertension Medications and Allergies Allergies Allergy/AdvReac Type Severity Reaction Status Date / Time No Known Allergies Allergy Unverified 06/20/14 04:03 Home Medications Medication Instructions Recorded Confirmed Last Taken Type Aspirin [Adult Low Dose Aspirin EC] 81 mg PO QDAY 02/12/15 05/21/16 Unknown History Multivitamin Tab [Multiple Vitamin 1 each PO QDAY 02/12/15 05/21/16 Unknown History TAB (Theragran)] Albuterol 2 mg PO BID 05/21/16 05/21/16 Unknown History Allergy 180 mg PO DAILY 05/21/16 05/21/16 Unknown History Breo Ellipta 100-25 Mcg INH 1 puff IH HS 05/21/16 05/21/16 Unknown History Dorzolamide HCl 1 drop OU TID 05/21/16 05/21/16 Unknown History Latanoprost 0.005% 1 drop OU HS 05/21/16 05/21/16 Unknown History Mucinex ER 1 tab PO BID 05/21/16 05/21/16 Unknown History Stiolto Respimat Inhal [place] 1 puff IH HS 05/21/16 05/21/16 Unknown History Ventolin HFA 2 puff IH Q6H PRN 05/21/16 05/21/16 Unknown History methylPREDNISolone 24 mg PO DAILY 05/21/16 05/21/16 Unknown History Active Meds: Active Medications Aspirin (Halfprin Ec) 81 mg PO QDAY ESTUARDO Atropine Sulfate (Atropine) 1 mg IV ONCE PRN PRN Reason: Bradycardia Sodium Chloride (Nacl 0.9% 1000 Ml) 1,000 mls @ 75 mls/hr IV DIRECT ESTUARDO Last Admin: 05/21/16 10:04 Dose: 1,000 mls Ondansetron HCl (Zofran) 4 mg IV Q4H PRN PRN Reason: Nausea And Vomiting Pantoprazole Sodium (Protonix) 40 mg PO DAILY ESTUARDO Physical Examination Vital signs: Vital Signs Temp Pulse Resp BP Pulse Ox 98.7 F 98 H 20 172/68 96 05/20/16 22:11 05/20/16 22:11 05/20/16 22:11 05/20/16 22:11 05/20/16 22:11 Results - Laboratory Findings CBC and BMP: 05/20/16 23:13 05/20/16 23:13
[2016-05-21 14:16] LABS: Creatine Kinase MB 4.2 ng/mL (0.0-4.0)
[2016-05-21] MEDS: PROTONIX PO SCH (15:14)
[2016-05-21] MEDS: HALFPRIN EC PO SCH (15:14)
--- NOTE | 2016-05-21 16:52 | Ultrasound Report ---
ULTRASOUND ABDOMEN INDICATION: Cholelithiasis. COMPARISON: CT from earlier today. FINDINGS: Abdominal sonography demonstrates grossly normal hepatic contours and mild diffuse echogenic coarsening. No focal suspicious lesions or biliary dilatation, to the extent assessed. Right pleural effusion again noted. Mild gallbladder sludge may be present without definite gallstones or pericholecystic fluid identified. Gallbladder wall thickness is 1.7 mm. Common bile duct is 2.7 mm. Homogenous spleen, 7 cm in length. No ascites. Pancreas not adequately seen, obscured due to bowel gas. Nonaneurysmal abdominal aorta. Unremarkable IVC. Nonhydronephrotic kidneys, approximately 9.3 cm in length on the right and 10 cm on the left. CONCLUSION: Right pleural effusion, possible gallbladder sludge and hepatic coarsening, as described. Thank you for the opportunity to participate in this patient's care.
[2016-05-21] MEDS: LEVAQUIN 500MG/100ML 500 MG/100 ML BAG IV SCH (17:28)
[2016-05-21] MEDS: LOVENOX SUB-Q SCH (17:28)
[2016-05-21] MEDS: DUONEB 0.5 MG-3 MG/3 ML SOLN IH SCH ×2 (18:20→20:47)
[2016-05-21] MEDS: PULMICORT IH SCH (20:47)
[2016-05-21] MEDS: BROVANA NEBU IH SCH (20:50)
[2016-05-21 20:56] LABS: Creatine Kinase MB 3.7 ng/mL (0.0-4.0)
--- NOTE | 2016-05-21 23:34 | Consultation ---
CONSULTING PHYSICIAN: Amy Moreira MD REASON FOR CONSULTATION: Symptomatic bradycardia. CHIEF COMPLAINT AND HISTORY OF PRESENT ILLNESS: The patient is a 75-year-old male with past medical history significant for glaucoma, chronic bronchitis, presented to the Emergency Room with vague abdominal pain of 2-3 days' duration. He had been seen by his primary care physician. At that time, his heart rate was in the 50s. He was told to stop his eyedrops because he felt like beta blockade might be contributing to the bradycardia. In the Emergency Room, he was evaluated and then they found he was also bradycardic, at this time, his heart rate was in the 20s-30s. He received atropine, minimal improvement. He did not have any syncopal or near syncopal episodes except for the generalized weakness, but ultimately Cardiology was consulted and the decision was made in my opinion appropriately to take him into the [facility] for a temporary pacemaker placement. When I stopped by to see him, he was in the Intensive Care Unit awaiting permanent pacemaker placement, but reportedly had received a little dose of morphine and Dilaudid earlier and I just could not arouse him, he was obviously showing signs of sleep disordered breathing with some minor desaturations. I do not have any history of nausea, vomiting, or overt aspiration. Now with regards to the patient's tobacco use/abuse history, the records describe him as a 10+ pack year tobacco smoker, but he quit a few years ago. This is much of the history of presentation as I have. PAST MEDICAL HISTORY: Hypertension, glaucoma, likely COPD, and history of shingles. He is obese. PAST SURGICAL HISTORY: He had denied in the Emergency Room. MEDICATIONS: He was on at the time I stopped by to see him, according to the medication administration record included the following: Aspirin 81 mg p.o. daily; atropine 1 mg IV, he received a one-time dose for bradycardia; Lovenox 40 mg subcutaneous daily; Zofran 4 mg IV q.4h. p.r.n.; Protonix 40 mg p.o. daily; and sodium chloride was going at 75 mL per hour. ALLERGIES: No known drug allergies. DIET: Obese gentleman, acute weight loss or gain history is unknown. FAMILY AND SOCIAL HISTORY: Lives in the community, lives with family, 10+ pack year tobacco smoking history, now remote. Denied alcohol or illicit drug use or abuse. REVIEW OF SYSTEMS: Really unobtainable secondary to his mental status at this time, since he has been here, no gross hematochezia or melena, no gross hematuria, no hematemesis, no seizure activity has been reported. PHYSICAL EXAMINATION: VITAL SIGNS: At presentation in the Emergency Room, he was afebrile, temperature 98.7, pulse was 98, respiratory rate was 20, blood pressure was 172/68. Oxygen sats were 96%, pulse quickly dropped into the 26 range. HEAD, EYES, EARS, NOSE, AND THROAT: Pupils are equal, round, about 3 mm, reactive to light. Extraocular muscle movements could not be assessed. He was obviously like as mentioned showing apneic spells. Oropharynx appeared to be #3 oropharynx. Grossly, there were no palpable lymph nodes in the supraclavicular or submandibular lymph node chains. LUNGS: Auscultation of both lung serrato revealed referred upper airway sounds, but there was obviously expiratory wheezing too and mild stridor or sound at times. HEART: Heart sounds 1 and 2 are heard. They were regular in rate and rhythm at the time of my evaluation, a paced rhythm. ABDOMEN: Soft, full, firm, but not tense, nontender, no organomegaly. EXTREMITIES: Showed about 1+ bipedal pitting edema. No significant digital clubbing or cyanosis. NEUROLOGIC: He did have spontaneous movements to the extremities, but . LABORATORY DATA: From my review are as follows: Admission white count 16,500 with hemoglobin of 13.7, hematocrit of 43.5, platelets 225. Serum sodium was 143, potassium 4.5, chloride 107, bicarbonate 20, BUN 25, creatinine 1.1, glucose 109, AST was up at 138, ALT was up at 308. BNP 2732. Troponin within normal limits. LDL cholesterol was 75, HDL was 68. Urinalysis negative for nitrites and leukocyte esterase. Chest x-ray was done. I have reviewed the radiologist's report and I have also reviewed imaging myself. Borderline cardiomegaly, increased interstitial markings bilaterally appear mostly chronic in nature; however, he may have layering small pleural effusions or bibasilar infiltrates, more consistent in my opinion if anything with an element of interstitial edema, likely prior granulomata in the hilar regions. No gross pneumothorax, no gross bony fracture. Really, nothing acute looking. A CT scan was also done of the abdomen and pelvis apparently that showed no evidence of bowel obstruction, suspect a cholelithiasis. ASSESSMENT AND PLAN: We have an elderly gentleman in with symptomatic bradycardia, but there may be a little bit more going on. He has an element of an acute COPD exacerbation also and may indeed have a gallbladder issue that may need to be dealt with. The more urgent things though is his respiratory and cardiac status. From a respiratory standpoint, I will put him on CPAP right now empirically with a CPAP of 10 for clinical sleep apnea. I also note the wheezing. I will put him on longacting bronchodilators as well as short-acting bronchodilators and inhaled corticosteroids. I will hold on systemic corticosteroids at this time. Bronchodilators and pulmonary toilet will be per Respiratory. Aspiration precautions will be maintained and we need to avoid over sedating him. From a cardiac standpoint, he has a temporary pacemaker in place, plans are apparently being made for a permanent pacemaker. Acute coronary syndrome workup is ongoing. I will defer to them. Blood pressure is holding at this point. From a GI and nutritional standpoint, oral nutrition will be the feeding modality of choice. He has been started on GI prophylaxis. Aspiration precautions will be maintained. From a renal standpoint, no major electrolyte abnormalities at this point. I do note that serum bicarbonate was beginning to run on the low side, at admission, he had a little bit of elevated BUN. I will go ahead and repeat the BMP and get a phosphorus level and make corrections as necessary. Inputs and outputs will be monitored. Electrolytes will be corrected as necessary. He may benefit from gentle diuresis. A 2D echocardiogram has not been done, I will read the cath report to get a better idea of his ejection fraction. Otherwise, I would defer to Cardiology with regards to his cardiac issues, but again, we will follow his electrolytes and correct as necessary. From a REPORTING COORDINATOR standpoint, the exam is grossly nonfocal, no acute indication for neuro imaging. We do need to avoid over sedation. From a REPORTING COORDINATOR standpoint and from an obstructive sleep apnea standpoint, we will follow him clinically. From an infectious disease standpoint, no acute indication for neuro imaging. I do note the elevated white count, but I doubt we are dealing with infectious process. Certainly, I cannot rule out an element of pneumonia. I will get a CRP level and if that is elevated, I will empirically begin him on a Levaquin monotherapy for acute COPD exacerbation in the possible setting of an acute bronchitis or occult pneumonia. From a general and hospital healthcare maintenance standpoint, he is going to be on GI and DVT prophylaxis. Flu and pneumonia vaccination will be per protocol. Thank you very much for the consult, Dr. Sheri Dr. ____ we will follow along and make further recommendations as picture progresses/becomes clearer. At this point, I have spent about 30-35 minutes of critical care time without overlap and excluding any procedural time that may be necessary. He is critically ill on life-sustaining interventions including the temporary pacemaker at risk for further deterioration including . JOB# [id number] LEONIE/NIGHAT
[2016-05-22 05:17] LABS: Basophils % (Auto) 0.3 % (0.0-1.8); Eosinophils % (Auto) 0.8 % (0.0-4.3); Hematocrit 43.4 % (35.5-45.6); Hemoglobin 13.8 gm/dl (11.8-15.2); Mean Corpuscular HGB Conc 32 % (32-34); Mean Corpuscular Hemoglobin 29 pg (28-32); Mean Corpuscular Volume 92 fl (84-94); Platelet Count 206 K/mm3 (140-440); Red Blood Count 4.73 M/mm3 (3.65-5.03); Red Cell Distribution Width 16.1 % (13.2-15.2); White Blood Count 16.1 K/mm3 (4.5-11.0)
[2016-05-22 05:40] LABS: Alanine Aminotransferase 203 units/L (7-56); Albumin 3.2 g/dL (3.9-5); Albumin/Globulin Ratio 1.2 %; Alkaline Phosphatase 84 units/L (35-129); Anion Gap 21 mmol/L; Bilirubin,Direct 0.3 mg/dL (0-0.2); Bilirubin,Indirect 0.6 mg/dL; Bilirubin,Total 0.9 mg/dL (0.1-1.2); Blood Urea Nitrogen 19 mg/dL (9-20); Calcium 8.5 mg/dL (8.4-10.2); Carbon Dioxide 20 mmol/L (22-30); Chloride 102.4 mmol/L (98-107); Glucose 93 mg/dL (75-100); Magnesium 2.1 mg/dL (1.7-2.3); Phosphorous 3.7 mg/dL (2.5-4.5); Potassium 4.2 mmol/L (3.6-5.0); Sodium 139 mmol/L (137-145); Total Protein 5.8 g/dL (6.3-8.2)
[2016-05-22] MEDS: BROVANA NEBU IH SCH ×2 (09:31→20:11)
[2016-05-22] MEDS: DUONEB 0.5 MG-3 MG/3 ML SOLN IH SCH ×3 (09:31→20:01)
[2016-05-22] MEDS: PULMICORT IH SCH ×2 (09:31→20:01)
--- NOTE | 2016-05-22 11:05 | Progress Note ---
Assessment and Plan - Patient Problems (1) Symptomatic bradycardia Current Visit: Yes Status: Acute Plan to address problem: - temporary pacing ongoing - for permanent PCM on tuesday - per cardiology - avoid beta-blockade acutely (2) COPD with acute exacerbation Current Visit: Yes Status: Acute Plan to address problem: - continue PAYAM, LABA & ICS - continue BIPAP qhs scheduled and prn daytime (3) Sleep disorder breathing Current Visit: Yes Status: Acute Plan to address problem: - continue NIV qhs - will add flonase for nasal congestion (4) Discharge planning issues Current Visit: Yes Status: Acute Plan to address problem: - keep in ICU while on temporary pacing ...32' CCT Subjective Date of service: 05/22/16 Principal diagnosis: Symptomatic Bradycardia Interval history: Seen and examined at bedside; 24 hour events reviewed; nursing and respiratory care staff consulted; no adverse overnight events reported to me; resting peacefully in bed; denies acute chest pains or increased SOB; no N/V/F/C Objective Vital Signs - 12hr 05/21/16 05/21/16 05/21/16 23:10 23:20 23:30 Temperature Pulse Rate 61 61 61 Respiratory 14 21 15 Rate Respiratory Rate [abd] Blood Pressure 140/63 125/56 152/66 O2 Sat by Pulse 95 96 97 Oximetry 05/21/16 05/21/16 05/22/16 23:40 23:50 00:00 Temperature 97.6 F Pulse Rate 61 61 61 Respiratory 18 20 17 Rate Respiratory Rate [abd] Blood Pressure 132/52 121/61 136/60 O2 Sat by Pulse 95 97 97 Oximetry 05/22/16 05/22/16 05/22/16 00:10 00:20 00:30 Temperature Pulse Rate 61 61 61 Respiratory 20 19 17 Rate Respiratory Rate [abd] Blood Pressure 136/60 132/57 149/70 O2 Sat by Pulse 97 98 97 Oximetry 05/22/16 05/22/16 05/22/16 00:40 00:50 01:00 Temperature Pulse Rate 61 61 61 Respiratory 18 22 22 Rate Respiratory Rate [abd] Blood Pressure 124/60 133/61 135/60 O2 Sat by Pulse 97 97 97 Oximetry 05/22/16 05/22/16 05/22/16 01:10 01:20 01:30 Temperature Pulse Rate 61 61 61 Respiratory 16 20 20 Rate Respiratory Rate [abd] Blood Pressure 135/60 143/61 137/61 O2 Sat by Pulse 97 97 98 Oximetry 05/22/16 05/22/16 05/22/16 01:40 01:50 02:00 Temperature Pulse Rate 61 61 61 Respiratory 19 18 18 Rate Respiratory Rate [abd] Blood Pressure 137/61 153/62 141/58 O2 Sat by Pulse 97 97 97 Oximetry 05/22/16 05/22/16 05/22/16 02:10 02:20 02:30 Temperature Pulse Rate 61 61 61 Respiratory 16 21 19 Rate Respiratory Rate [abd] Blood Pressure 141/58 132/67 141/58 O2 Sat by Pulse 97 97 94 Oximetry 05/22/16 05/22/16 05/22/16 02:35 02:40 02:50 Temperature Pulse Rate 61 61 61 Respiratory 22 19 10 L Rate Respiratory 22 Rate [abd] Blood Pressure 142/119 142/119 148/107 O2 Sat by Pulse 97 97 96 Oximetry 05/22/16 05/22/16 05/22/16 03:00 03:10 03:20 Temperature Pulse Rate 61 61 61 Respiratory 19 19 19 Rate Respiratory Rate [abd] Blood Pressure 147/68 147/68 149/70 O2 Sat by Pulse 96 97 97 Oximetry 05/22/16 05/22/16 05/22/16 03:30 03:40 03:50 Temperature Pulse Rate 61 61 61 Respiratory 16 16 14 Rate Respiratory Rate [abd] Blood Pressure 146/72 146/72 149/63 O2 Sat by Pulse 97 97 98 Oximetry 05/22/16 05/22/16 05/22/16 04:00 04:10 04:20 Temperature Pulse Rate 61 61 61 Respiratory 15 17 14 Rate Respiratory Rate [abd] Blood Pressure 149/70 149/70 145/67 O2 Sat by Pulse 97 97 96 Oximetry 05/22/16 05/22/16 05/22/16 04:30 04:40 04:50 Temperature Pulse Rate 61 61 61 Respiratory 17 15 13 Rate Respiratory Rate [abd] Blood Pressure 152/66 152/66 148/64 O2 Sat by Pulse 97 97 97 Oximetry 05/22/16 05/22/16 05/22/16 05:00 05:10 05:20 Temperature Pulse Rate 61 61 61 Respiratory 18 15 15 Rate Respiratory Rate [abd] Blood Pressure 151/67 151/67 151/67 O2 Sat by Pulse 96 97 97 Oximetry 05/22/16 07:52 Temperature 97.5 F L Pulse Rate Respiratory Rate Respiratory Rate [abd] Blood Pressure O2 Sat by Pulse Oximetry Constitutional: no acute distress, alert Eyes: non-icteric ENT: oropharynx moist Neck: supple, no lymphadenopathy Effort: normal Ascultation: Bilateral: clear, diminished breath sounds Cardiovascular: regular rate and rhythm, other (paced) Gastrointestinal: normoactive bowel sounds, soft, non-tender, non-distended Integumentary: normal Extremities: no cyanosis, pink and warm, pulses normal, no ischemia or petechiae , edema (1++) Neurologic: normal mental status, non-focal exam, pupils equal and round, motor strength normal and Psychiatric: mood appropriate, affect normal CBC and BMP: 05/22/16 04:33 05/22/16 04:33 Abnormal lab findings: Abnormal Labs 05/21/16 05/21/16 05/21/16 13:01 15:59 20:00 WBC RDW Lymph % (Auto) [place] # Seg Neutrophils % Seg Neutrophils # Carbon Dioxide Lactic Acid 2.7 H* Direct Bilirubin AST ALT CK-MB (CK-2) 4.2 H Troponin T 0.035 H D 0.041 H Total Protein Albumin HDL Cholesterol 68 H 05/22/16 05/22/16 04:33 04:33 WBC 16.1 H RDW 16.1 H Lymph % (Auto) 12.2 L [place] # 1.1 H Seg Neutrophils % 80.0 H Seg Neutrophils # 12.9 H Carbon Dioxide 20 L Lactic Acid Direct Bilirubin 0.3 H AST 52 H ALT 203 H CK-MB (CK-2) Troponin T Total Protein 5.8 L Albumin 3.2 L HDL Cholesterol Chest x-ray: image reviewed
--- NOTE | 2016-05-22 14:26 | Progress Note ---
Assessment and Plan Awaiting permanent pacemaker placement on Tuesday. Subjective Date of service: 05/22/16 Interval history: Patient is comfortable, has a temporary pacemaker via the right femoral vein, pacemaker is functioning normally, he is pacing at 60/m. He is alert and oriented, comfortable in no acute distress. He has no cardiac complaints. Objective Vital Signs Temp Pulse Pulse Pulse Resp Resp Resp 05/22/16 12:00 97.6 F 05/22/16 07:52 97.5 F L 05/22/16 05:20 61 15 05/22/16 05:10 61 15 05/22/16 05:00 61 18 05/22/16 04:50 61 13 05/22/16 04:40 61 15 05/22/16 04:30 61 17 05/22/16 04:20 61 14 05/22/16 04:10 61 17 05/22/16 04:00 61 15 05/22/16 03:50 61 14 05/22/16 03:40 61 16 05/22/16 03:30 61 16 05/22/16 03:20 61 19 05/22/16 03:10 61 19 05/22/16 03:00 61 19 05/22/16 02:50 61 10 L 05/22/16 02:40 61 19 05/22/16 02:35 61 22 05/22/16 02:30 61 19 05/22/16 02:20 61 21 05/22/16 02:10 61 16 05/22/16 02:00 61 18 05/22/16 01:50 61 18 05/22/16 01:40 61 19 05/22/16 01:30 61 20 05/22/16 01:20 61 20 05/22/16 01:10 61 16 05/22/16 01:00 61 22 05/22/16 00:50 61 22 05/22/16 00:40 61 18 05/22/16 00:30 61 17 05/22/16 00:20 61 19 05/22/16 00:10 61 20 05/22/16 00:00 97.6 F 61 17 05/21/16 23:50 61 20 05/21/16 23:40 61 18 05/21/16 23:30 61 15 05/21/16 23:20 61 21 05/21/16 23:10 61 14 05/21/16 23:00 61 15 05/21/16 22:50 61 19 05/21/16 22:40 61 19 05/21/16 22:30 61 20 05/21/16 22:20 61 20 05/21/16 22:10 61 22 05/21/16 22:00 61 20 05/21/16 21:50 61 20 05/21/16 21:40 61 21 05/21/16 21:30 61 15 05/21/16 21:20 61 21 05/21/16 21:10 61 19 05/21/16 21:00 61 18 05/21/16 20:57 05/21/16 20:54 61 12 05/21/16 20:50 61 13 05/21/16 20:40 61 61 16 14 05/21/16 20:30 61 20 05/21/16 20:20 61 22 05/21/16 20:10 61 16 05/21/16 20:00 98.5 F 61 20 05/21/16 19:50 61 20 05/21/16 19:40 61 18 05/21/16 19:30 61 19 05/21/16 19:20 61 18 05/21/16 19:10 61 22 05/21/16 19:00 61 19 05/21/16 18:50 61 18 05/21/16 18:40 61 17 05/21/16 18:30 61 16 05/21/16 18:25 62 18 05/21/16 18:22 61 14 05/21/16 18:20 61 14 05/21/16 18:10 61 16 05/21/16 18:00 61 13 05/21/16 17:50 61 15 05/21/16 17:40 61 12 05/21/16 17:30 61 15 05/21/16 17:20 61 12 05/21/16 17:10 61 13 05/21/16 17:00 98.1 F 61 13 05/21/16 16:50 61 13 05/21/16 16:49 05/21/16 16:40 61 10 L 05/21/16 16:30 61 16 05/21/16 16:20 61 13 05/21/16 16:10 61 14 05/21/16 16:00 61 14 05/21/16 15:50 61 11 L 05/21/16 15:40 61 11 L 05/21/16 15:30 61 13 05/21/16 15:20 61 13 05/21/16 15:10 61 13 05/21/16 15:06 61 12 05/21/16 15:00 68 17 05/21/16 14:50 61 12 05/21/16 14:40 61 11 L 05/21/16 14:30 61 14 Resp BP Pulse Ox 05/22/16 12:00 05/22/16 07:52 05/22/16 05:20 151/67 97 05/22/16 05:10 151/67 97 05/22/16 05:00 151/67 96 05/22/16 04:50 148/64 97 05/22/16 04:40 152/66 97 05/22/16 04:30 152/66 97 05/22/16 04:20 145/67 96 05/22/16 04:10 149/70 97 05/22/16 04:00 149/70 97 05/22/16 03:50 149/63 98 05/22/16 03:40 146/72 97 05/22/16 03:30 146/72 97 05/22/16 03:20 149/70 97 05/22/16 03:10 147/68 97 05/22/16 03:00 147/68 96 05/22/16 02:50 148/107 96 05/22/16 02:40 142/119 97 05/22/16 02:35 22 142/119 97 05/22/16 02:30 141/58 94 05/22/16 02:20 132/67 97 05/22/16 02:10 141/58 97 05/22/16 02:00 141/58 97 05/22/16 01:50 153/62 97 05/22/16 01:40 137/61 97 05/22/16 01:30 137/61 98 05/22/16 01:20 143/61 97 05/22/16 01:10 135/60 97 05/22/16 01:00 135/60 97 05/22/16 00:50 133/61 97 05/22/16 00:40 124/60 97 05/22/16 00:30 149/70 97 05/22/16 00:20 132/57 98 05/22/16 00:10 136/60 97 04/08/17 00:00 136/60 97 05/21/16 23:50 121/61 97 05/21/16 23:40 132/52 95 05/21/16 23:30 152/66 97 05/21/16 23:20 125/56 96 05/21/16 23:10 140/63 95 05/21/16 23:00 140/63 95 05/21/16 22:50 136/55 94 05/21/16 22:40 136/54 95 05/21/16 22:30 136/54 95 05/21/16 22:20 133/58 94 05/21/16 22:10 130/55 95 05/21/16 22:00 130/55 94 05/21/16 21:50 131/61 94 05/21/16 21:40 122/59 96 05/21/16 21:30 152/66 97 05/21/16 21:20 123/54 97 05/21/16 21:10 131/60 99 05/21/16 21:00 131/60 100 05/21/16 20:57 100 05/21/16 20:54 05/21/16 20:50 123/66 99 05/21/16 20:40 135/65 95 05/21/16 20:30 135/65 95 05/21/16 20:20 111/57 95 05/21/16 20:10 123/66 94 05/21/16 20:00 111/57 95 05/21/16 19:50 111/57 96 05/21/16 19:40 120/57 96 05/21/16 19:30 22 120/57 97 05/21/16 19:20 128/62 96 05/21/16 19:10 140/68 96 05/21/16 19:00 140/68 97 05/21/16 18:50 143/66 100 05/21/16 18:40 131/59 100 05/21/16 18:30 131/59 100 05/21/16 18:25 05/21/16 18:22 05/21/16 18:20 148/53 100 05/21/16 18:10 141/65 99 05/21/16 18:00 141/65 100 05/21/16 17:50 136/62 100 05/21/16 17:40 140/59 100 05/21/16 17:30 140/59 99 05/21/16 17:20 130/58 99 05/21/16 17:10 140/65 99 05/21/16 17:00 149/65 100 05/21/16 16:50 140/65 99 05/21/16 16:49 100 05/21/16 16:40 139/79 100 05/21/16 16:30 147/74 99 05/21/16 16:20 139/79 100 05/21/16 16:10 134/74 100 05/21/16 16:00 134/74 100 05/21/16 15:50 129/72 100 05/21/16 15:40 131/60 100 05/21/16 15:30 141/64 100 05/21/16 15:20 141/64 100 05/21/16 15:10 131/60 100 05/21/16 15:06 131/60 100 05/21/16 15:00 131/60 99 05/21/16 14:50 110/63 96 05/21/16 14:40 125/51 94 05/21/16 14:30 125/51 95 - Physical Examination General: Appears Well, No Apparent Distress HEENT: Positive: PERRL Neck: Positive: neck supple Cardiac: Positive: Regular Rate Lungs: Positive: clear to auscultation Neuro: Positive: Grossly Intact Abdomen: Positive: Soft Skin: Positive: Clear Extremities: Absent: edema - Labs and Meds Cardiac Enzymes 05/21/16 05/22/16 Range/Units 13:01 04:33 AST 52 H (5-40) units/L CK-MB (CK-2) 4.2 H (0.0-4.0) ng/mL Lipids 05/21/16 Range/Units 13:01 Triglycerides 71 (2-149) mg/dL Cholesterol 157 (50-199) mg/dL HDL Cholesterol 68 H (40-59) mg/dL Cholesterol/HDL Ratio 2.30 % CBC 05/22/16 Range/Units 04:33 WBC 16.1 H (4.5-11.0) K/mm3 RBC 4.73 (3.65-5.03) M/mm3 Hgb 13.8 (11.8-15.2) gm/dl Hct 43.4 (35.5-45.6) % Plt Count 206 (140-440) K/mm3 Lymph # 2.0 (1.2-5.4) K/mm3 [place] # 1.1 H (0.0-0.8) K/mm3 Eos # 0.1 (0.0-0.4) K/mm3 Baso # 0.0 (0.0-0.1) K/mm3 Comprehensive Metabolic Panel 05/22/16 Range/Units 04:33 Sodium 139 (137-145) mmol/L Potassium 4.2 (3.6-5.0) mmol/L Chloride 102.4 (98-107) mmol/L Carbon Dioxide 20 L (22-30) mmol/L BUN 19 (9-20) mg/dL Creatinine 1.0 (0.8-1.5) mg/dL Glucose 93 (75-100) mg/dL Calcium 8.5 (8.4-10.2) mg/dL Direct Bilirubin 0.3 H (0-0.2) mg/dL Indirect Bilirubin 0.6 mg/dL AST 52 H (5-40) units/L ALT 203 H (7-56) units/L Alkaline Phosphatase 84 (35-129) units/L Total Protein 5.8 L (6.3-8.2) g/dL Albumin 3.2 L (3.9-5) g/dL
--- NOTE | 2016-05-22 14:53 | Progress Note ---
Assessment and Plan Assessment and plan: --Severe bradycardia, resolved Status post temporary pacemaker Possible permanent pacemaker placement on Tuesday Cardiology following --Abdominal pain/constipation Improved, stool softeners as needed --Cholelithiasis and gallbladder sludge Consult surgery for recommendations --Transaminitis Closely monitor liver function, consider HIDA scan And GI evaluation if needed --History of bronchitis Oxygen titrated to O2 sats more than 90% Nebulizers as needed --Leukocytosis Probably stress related, however rule out sepsis Closely monitor --History of glaucoma Hold eyedrops at this point, resume once his heart rate is stabilized --DVT prophylaxis with Lovenox --Full CODE STATUS Cardiology recommendations noted Continue current management Patient's condition treatment plan discussed in detail with the patient and his nurse History Interval history: patient seen and evaluated medical records reviewed No new events reported by the nursing staff Heartrate well-maintained, planning permanent pacemaker placement on Tuesday Alert awake oriented 3 not in acute distress Hospitalist Physical - Constitutional Vitals: Temp Pulse Resp BP Pulse Ox 97.6 F 61 15 151/67 97 05/22/16 12:00 05/22/16 05:20 05/22/16 05:20 05/22/16 05:20 05/22/16 05:20 General appearance: Present: no acute distress, well-nourished - EENT Eyes: Present: PERRL, EOM intact - Neck Neck: Present: supple, normal ROM - Respiratory Respiratory effort: normal Respiratory: bilateral: diminished, negative: rales, rhonchi, wheezing - Cardiovascular Rhythm: regular Heart Sounds: Present: S1 & S2 - Extremities Extremities: no ischemia, pulses intact, pulses symmetrical Peripheral Pulses: within normal limits - Abdominal General gastrointestinal: soft, non-tender, non-distended, normal bowel sounds - Integumentary Integumentary: Present: clear, warm - Psychiatric Psychiatric: appropriate mood/affect, cooperative - Neurologic Neurologic: CNII-XII intact, moves all extremities Results - Labs CBC & Chem 7: 05/22/16 04:33 05/22/16 04:33 Labs: Laboratory Last Values WBC 16.1 K/mm3 (4.5-11.0) H 05/22/16 04:33 RBC 4.73 M/mm3 (3.65-5.03) 05/22/16 04:33 Hgb 13.8 gm/dl (11.8-15.2) 05/22/16 04:33 Hct 43.4 % (35.5-45.6) 05/22/16 04:33 MCV 92 fl (84-94) 05/22/16 04:33 MCH 29 pg (28-32) 05/22/16 04:33 MCHC 32 % (32-34) 05/22/16 04:33 RDW 16.1 % (13.2-15.2) H 05/22/16 04:33 Plt Count 206 K/mm3 (140-440) 05/22/16 04:33 Lymph % (Auto) 12.2 % (13.4-35.0) L 05/22/16 04:33 [place] % (Auto) 6.7 % (0.0-7.3) 05/22/16 04:33 Eos % (Auto) 0.8 % (0.0-4.3) 05/22/16 04:33 Baso % (Auto) 0.3 % (0.0-1.8) 05/22/16 04:33 Lymph # 2.0 K/mm3 (1.2-5.4) 05/22/16 04:33 [place] # 1.1 K/mm3 (0.0-0.8) H 05/22/16 04:33 Eos # 0.1 K/mm3 (0.0-0.4) 05/22/16 04:33 Baso # 0.0 K/mm3 (0.0-0.1) 05/22/16 04:33 Add Manual Diff Complete 05/20/16 23:13 Total Counted 100 05/20/16 23:13 Seg Neutrophils % 80.0 % (40.0-70.0) H 05/22/16 04:33 Seg Neuts % (Manual) 65.0 % (40.0-70.0) 05/20/16 23:13 Band Neutrophils % 3.0 % 05/20/16 23:13 Lymphocytes % (Manual) 27.0 % (13.4-35.0) 05/20/16 23:13 Reactive Lymphs % (Man) 0 % 05/20/16 23:13 Monocytes % (Manual) 5.0 % (0.0-7.3) 05/20/16 23:13 Eosinophils % (Manual) 0 % (0.0-4.3) 05/20/16 23:13 Basophils % (Manual) 0 % (0.0-1.8) 05/20/16 23:13 Metamyelocytes % 0 % 05/20/16 23:13 Myelocytes % 0 % 05/20/16 23:13 Promyelocytes % 0 % 05/20/16 23:13 Blast Cells % 0 % 05/20/16 23:13 Nucleated RBC % Not Reportable 05/20/16 23:13 Seg Neutrophils # 12.9 K/mm3 (1.8-7.7) H 05/22/16 04:33 Seg Neutrophils # Man 10.7 K/mm3 (1.8-7.7) H 05/20/16 23:13 Band Neutrophils # 0.5 K/mm3 05/20/16 23:13 Lymphocytes # (Manual) 4.5 K/mm3 (1.2-5.4) 05/20/16 23:13 Abs React Lymphs (Man) 0.0 K/mm3 05/20/16 23:13 Monocytes # (Manual) 0.8 K/mm3 (0.0-0.8) 05/20/16 23:13 Eosinophils # (Manual) 0.0 K/mm3 (0.0-0.4) 05/20/16 23:13 Basophils # (Manual) 0.0 K/mm3 (0.0-0.1) 05/20/16 23:13 Metamyelocytes # 0.0 K/mm3 05/20/16 23:13 Myelocytes # 0.0 K/mm3 05/20/16 23:13 Promyelocytes # 0.0 K/mm3 05/20/16 23:13 Blast Cells # 0.0 K/mm3 05/20/16 23:13 WBC Morphology Not Reportable 05/20/16 23:13 Hypersegmented Neuts Not Reportable 05/20/16 23:13 Hyposegmented Neuts Not Reportable 05/20/16 23:13 Hypogranular Neuts Not Reportable 05/20/16 23:13 Smudge Cells Not Reportable 05/20/16 23:13 Toxic Granulation Not Reportable 05/20/16 23:13 Toxic Vacuolation Not Reportable 05/20/16 23:13 Dohle Bodies Not Reportable 05/20/16 23:13 Pelger-Huet Anomaly Not Reportable 05/20/16 23:13 Abmer Rods Not Reportable 05/20/16 23:13 Platelet Estimate Appears normal 05/20/16 23:13 Clumped Platelets Not Reportable 05/20/16 23:13 Plt Clumps, EDTA Not Reportable 05/20/16 23:13 Large Platelets Not Reportable 05/20/16 23:13 Giant Platelets Not Reportable 05/20/16 23:13 Platelet Satelliting Not Reportable 05/20/16 23:13 Plt Morphology Comment Not Reportable 05/20/16 23:13 RBC Morphology Not Reportable 05/20/16 23:13 Dimorphic RBCs Not Reportable 05/20/16 23:13 Polychromasia Not Reportable 05/20/16 23:13 Hypochromasia Not Reportable 05/20/16 23:13 Poikilocytosis Not Reportable 05/20/16 23:13 Anisocytosis 1+ 05/20/16 23:13 Microcytosis Not Reportable 05/20/16 23:13 Macrocytosis Not Reportable 05/20/16 23:13 Spherocytes Not Reportable 05/20/16 23:13 Pappenheimer Bodies Not Reportable 05/20/16 23:13 Sickle Cells Not Reportable 05/20/16 23:13 Target Cells Not Reportable 05/20/16 23:13 Tear Drop Cells Not Reportable 05/20/16 23:13 Ovalocytes Not Reportable 05/20/16 23:13 Helmet Cells Not Reportable 05/20/16 23:13 Mg-[place] Bodies Not Reportable 05/20/16 23:13 [place] Rings Not Reportable 05/20/16 23:13 [place] Cells Not Reportable 05/20/16 23:13 Bite Cells Not Reportable 05/20/16 23:13 Crenated Cell Not Reportable 05/20/16 23:13 Elliptocytes Not Reportable 05/20/16 23:13 Acanthocytes (Spur) Not Reportable 05/20/16 23:13 Rouleaux Not Reportable 05/20/16 23:13 Hemoglobin C Crystals Not Reportable 05/20/16 23:13 Schistocytes Not Reportable 05/20/16 23:13 Malaria parasites Not Reportable 05/20/16 23:13 Will Bodies Not Reportable 05/20/16 23:13 Hem Pathologist Commnt No 05/20/16 23:13 Sodium 139 mmol/L (137-145) 05/22/16 04:33 Potassium 4.2 mmol/L (3.6-5.0) 05/22/16 04:33 Chloride 102.4 mmol/L (98-107) 05/22/16 04:33 Carbon Dioxide 20 mmol/L (22-30) L 05/22/16 04:33 Anion Gap 21 mmol/L 05/22/16 04:33 BUN 19 mg/dL (9-20) 05/22/16 04:33 Creatinine 1.0 mg/dL (0.8-1.5) 05/22/16 04:33 Estimated GFR > 60 ml/min 05/22/16 04:33 BUN/Creatinine Ratio 19.00 % 05/22/16 04:33 Glucose 93 mg/dL (75-100) 05/22/16 04:33 POC Glucose 108 (70-105) H 05/22/16 13:56 Lactic Acid 2.7 mmol/L (0.7-2.0) H* 05/21/16 15:59 Calcium 8.5 mg/dL (8.4-10.2) 05/22/16 04:33 Phosphorus 3.7 mg/dL (2.5-4.5) 05/22/16 04:33 Magnesium 2.1 mg/dL (1.7-2.3) 05/22/16 04:33 Total Bilirubin 0.9 mg/dL (0.1-1.2) 05/22/16 04:33 Direct Bilirubin 0.3 mg/dL (0-0.2) H 05/22/16 04:33 Indirect Bilirubin 0.6 mg/dL 05/22/16 04:33 AST 52 units/L (5-40) H 05/22/16 04:33 ALT 203 units/L (7-56) H 05/22/16 04:33 Alkaline Phosphatase 84 units/L (35-129) 05/22/16 04:33 Total Creatine Kinase 112 units/L (55-170) 05/21/16 20:00 CK-MB (CK-2) 4.2 ng/mL (0.0-4.0) H 05/21/16 13:01 CK-MB (CK-2) Rel Index 3.3 (0-4) 05/21/16 20:00 Troponin T 0.041 ng/mL (0.00-0.029) H 05/21/16 20:00 C-Reactive Protein 1.20 mg/dL (0.00-1.30) 05/21/16 15:21 NT-Pro-B Natriuret Pep 2732 pg/mL (0-900) H 05/20/16 23:13 Total Protein 5.8 g/dL (6.3-8.2) L 05/22/16 04:33 Albumin 3.2 g/dL (3.9-5) L 05/22/16 04:33 Albumin/Globulin Ratio 1.2 % 05/22/16 04:33 Triglycerides 71 mg/dL (2-149) 05/21/16 13:01 Cholesterol 157 mg/dL (50-199) 05/21/16 13:01 LDL Cholesterol Direct 75 mg/dL (50-130) 05/21/16 13:01 HDL Cholesterol 68 mg/dL (40-59) H 05/21/16 13:01 Cholesterol/HDL Ratio 2.30 % 05/21/16 13:01 Lipase 36 units/L (13-60) 05/20/16 23:13 TSH 3.890 mlU/mL (0.270-4.200) 05/21/16 10:51 Urine Color Straw (Yellow) 05/20/16 23:18 Urine Turbidity Clear (Clear) 05/20/16 23:18 Urine pH 6.0 (5.0-7.0) 05/20/16 23:18 Ur Specific [place] 1.003 (1.003-1.030) 05/20/16 23:18 Urine Protein <15 mg/dl mg/dL (Negative) 05/20/16 23:18 Urine Glucose (UA) Neg mg/dL (Negative) 05/20/16 23:18 Urine Ketones Neg mg/dL (Negative) 05/20/16 23:18 Urine Blood Sm (Negative) 05/20/16 23:18 Urine Nitrite Neg (Negative) 05/20/16 23:18 Urine Bilirubin Neg (Negative) 05/20/16 23:18 Urine Urobilinogen < 2.0 mg/dL (<2.0) 05/20/16 23:18 Ur Leukocyte Esterase Neg (Negative) 05/20/16 23:18 Urine WBC (Auto) < 1.0 /HPF (0.0-6.0) 05/20/16 23:18 Urine RBC (Auto) < 1.0 /HPF (0.0-6.0) 05/20/16 23:18 U Epithel Cells (Auto) < 1.0 /HPF (0-13.0) 05/20/16 23:18 Urine Mucus Few /HPF 05/20/16 23:18
[2016-05-22] MEDS: LEVAQUIN 500MG/100ML 500 MG/100 ML BAG IV SCH (16:20)
[2016-05-22] MEDS: PROTONIX PO SCH (17:10)
[2016-05-22] MEDS: LOVENOX SUB-Q SCH (17:10)
[2016-05-22] MEDS: HALFPRIN EC PO SCH (17:20)
[2016-05-23 04:06] LABS: Basophils % (Auto) 0.2 % (0.0-1.8); Eosinophils % (Auto) 1.6 % (0.0-4.3); Hematocrit 45.7 % (35.5-45.6); Hemoglobin 14.6 gm/dl (11.8-15.2); Mean Corpuscular HGB Conc 32 % (32-34); Mean Corpuscular Hemoglobin 29 pg (28-32); Mean Corpuscular Volume 92 fl (84-94); Platelet Count 179 K/mm3 (140-440); Red Blood Count 4.96 M/mm3 (3.65-5.03); Red Cell Distribution Width 15.6 % (13.2-15.2); White Blood Count 12.8 K/mm3 (4.5-11.0)
[2016-05-23 04:15] LABS: Alanine Aminotransferase 143 units/L (7-56); Albumin 3.1 g/dL (3.9-5); Albumin/Globulin Ratio 1.2 %; Alkaline Phosphatase 79 units/L (35-129); Amylase 79 units/L (27-131); Anion Gap 16 mmol/L; BUN/Creatinine Ratio 16.66; Bilirubin,Direct 0.3 mg/dL (0-0.2); Bilirubin,Indirect 0.5 mg/dL; Bilirubin,Total 0.8 mg/dL (0.1-1.2); Blood Urea Nitrogen 15 mg/dL (9-20); Calcium 8.6 mg/dL (8.4-10.2); Carbon Dioxide 23 mmol/L (22-30); Chloride 102.8 mmol/L (98-107); Glucose 103 mg/dL (75-100); Potassium 4.1 mmol/L (3.6-5.0); Sodium 138 mmol/L (137-145); Total Protein 5.6 g/dL (6.3-8.2)
[2016-05-23] MEDS: DUONEB 0.5 MG-3 MG/3 ML SOLN IH SCH ×3 (08:48→19:38)
[2016-05-23] MEDS: PULMICORT IH SCH ×2 (08:48→19:38)
[2016-05-23] MEDS: BROVANA NEBU IH SCH ×2 (08:48→19:39)
--- NOTE | 2016-05-23 08:51 | Progress Note ---
Assessment and Plan Assessment and plan: --Severe bradycardia, on temporary pacemaker Functional and pacing at 60 permanent pacemaker placement scheduled for tomorrow Cardiology following --Abdominal pain/constipation Secondary to cholelithiasis and gallbladder sludge surgical evaluation and HIDA scan after permanent pacemaker placement --Transaminitis Closely monitor liver function --History of bronchitis Oxygen titrated to O2 sats more than 90% Nebulizers as needed --Leukocytosis Trending down --History of glaucoma Hold eyedrops at this point, resume once his heart rate is stabilized --DVT prophylaxis with Lovenox --Full CODE STATUS Closely monitor the patient in ICU Permanent pacemaker tomorrow Plan of care discussed with the patient, at the bedside, his nurse As well as the charge nurse Consults recommendations noted History Interval history: Patient seen and evaluated in ICU this morning medical records reviewed No new events reported by the nursing staff Scheduled for HIDA scan today, permanent pacemaker tomorrow Patient denies any chest pain shortness of breath, denies palpitations Impurity pacemaker functional pacing at 60 Hospitalist Physical - Constitutional Vitals: Temp Pulse Resp BP Pulse Ox 97.5 F L 61 18 112/61 97 05/23/16 07:39 05/23/16 08:48 05/23/16 08:48 05/23/16 06:00 05/23/16 08:48 General appearance: Present: no acute distress, well-nourished - EENT Eyes: Present: PERRL, EOM intact - Neck Neck: Present: supple, normal ROM - Respiratory Respiratory effort: normal Respiratory: negative: rales, rhonchi, wheezing - Cardiovascular Rhythm: regular Heart Sounds: Present: S1 & S2 (temporary pacemaker pacing at 60) - Extremities Extremities: no ischemia, pulses intact, pulses symmetrical Peripheral Pulses: within normal limits - Abdominal General gastrointestinal: soft, non-tender, non-distended, normal bowel sounds - Integumentary Integumentary: Present: clear, warm - Psychiatric Psychiatric: appropriate mood/affect, cooperative - Neurologic Neurologic: CNII-XII intact, moves all extremities Results - Labs CBC & Chem 7: 05/23/16 03:27 05/23/16 03:27 Labs: Laboratory Last Values WBC 12.8 K/mm3 (4.5-11.0) H 05/23/16 03:27 RBC 4.96 M/mm3 (3.65-5.03) 05/23/16 03:27 Hgb 14.6 gm/dl (11.8-15.2) 05/23/16 03:27 Hct 45.7 % (35.5-45.6) H 05/23/16 03:27 MCV 92 fl (84-94) 05/23/16 03:27 MCH 29 pg (28-32) 05/23/16 03:27 MCHC 32 % (32-34) 05/23/16 03:27 RDW 15.6 % (13.2-15.2) H 05/23/16 03:27 Plt Count 179 K/mm3 (140-440) 05/23/16 03:27 Lymph % (Auto) 18.8 % (13.4-35.0) 05/23/16 03:27 [place] % (Auto) 7.3 % (0.0-7.3) 05/23/16 03:27 Eos % (Auto) 1.6 % (0.0-4.3) 05/23/16 03:27 Baso % (Auto) 0.2 % (0.0-1.8) 05/23/16 03:27 Lymph # 2.4 K/mm3 (1.2-5.4) 05/23/16 03:27 [place] # 0.9 K/mm3 (0.0-0.8) H 05/23/16 03:27 Eos # 0.2 K/mm3 (0.0-0.4) 05/23/16 03:27 Baso # 0.0 K/mm3 (0.0-0.1) 05/23/16 03:27 Add Manual Diff Complete 05/20/16 23:13 Total Counted 100 05/20/16 23:13 Seg Neutrophils % 72.1 % (40.0-70.0) H 05/23/16 03:27 Seg Neuts % (Manual) 65.0 % (40.0-70.0) 05/20/16 23:13 Band Neutrophils % 3.0 % 05/20/16 23:13 Lymphocytes % (Manual) 27.0 % (13.4-35.0) 05/20/16 23:13 Reactive Lymphs % (Man) 0 % 05/20/16 23:13 Monocytes % (Manual) 5.0 % (0.0-7.3) 05/20/16 23:13 Eosinophils % (Manual) 0 % (0.0-4.3) 05/20/16 23:13 Basophils % (Manual) 0 % (0.0-1.8) 05/20/16 23:13 Metamyelocytes % 0 % 05/20/16 23:13 Myelocytes % 0 % 05/20/16 23:13 Promyelocytes % 0 % 05/20/16 23:13 Blast Cells % 0 % 05/20/16 23:13 Nucleated RBC % Not Reportable 05/20/16 23:13 Seg Neutrophils # 9.3 K/mm3 (1.8-7.7) H 05/23/16 03:27 Seg Neutrophils # Man 10.7 K/mm3 (1.8-7.7) H 05/20/16 23:13 Band Neutrophils # 0.5 K/mm3 05/20/16 23:13 Lymphocytes # (Manual) 4.5 K/mm3 (1.2-5.4) 05/20/16 23:13 Abs React Lymphs (Man) 0.0 K/mm3 05/20/16 23:13 Monocytes # (Manual) 0.8 K/mm3 (0.0-0.8) 05/20/16 23:13 Eosinophils # (Manual) 0.0 K/mm3 (0.0-0.4) 05/20/16 23:13 Basophils # (Manual) 0.0 K/mm3 (0.0-0.1) 05/20/16 23:13 Metamyelocytes # 0.0 K/mm3 05/20/16 23:13 Myelocytes # 0.0 K/mm3 05/20/16 23:13 Promyelocytes # 0.0 K/mm3 05/20/16 23:13 Blast Cells # 0.0 K/mm3 05/20/16 23:13 WBC Morphology Not Reportable 05/20/16 23:13 Hypersegmented Neuts Not Reportable 05/20/16 23:13 Hyposegmented Neuts Not Reportable 05/20/16 23:13 Hypogranular Neuts Not Reportable 05/20/16 23:13 Smudge Cells Not Reportable 05/20/16 23:13 Toxic Granulation Not Reportable 05/20/16 23:13 Toxic Vacuolation Not Reportable 05/20/16 23:13 Dohle Bodies Not Reportable 05/20/16 23:13 Pelger-Huet Anomaly Not Reportable 05/20/16 23:13 Amber Rods Not Reportable 05/20/16 23:13 Platelet Estimate Appears normal 05/20/16 23:13 Clumped Platelets Not Reportable 05/20/16 23:13 Plt Clumps, EDTA Not Reportable 05/20/16 23:13 Large Platelets Not Reportable 05/20/16 23:13 Giant Platelets Not Reportable 05/20/16 23:13 Platelet Satelliting Not Reportable 05/20/16 23:13 Plt Morphology Comment Not Reportable 05/20/16 23:13 RBC Morphology Not Reportable 05/20/16 23:13 Dimorphic RBCs Not Reportable 05/20/16 23:13 Polychromasia Not Reportable 05/20/16 23:13 Hypochromasia Not Reportable 05/20/16 23:13 Poikilocytosis Not Reportable 05/20/16 23:13 Anisocytosis 1+ 05/20/16 23:13 Microcytosis Not Reportable 05/20/16 23:13 Macrocytosis Not Reportable 05/20/16 23:13 Spherocytes Not Reportable 05/20/16 23:13 Pappenheimer Bodies Not Reportable 05/20/16 23:13 Sickle Cells Not Reportable 05/20/16 23:13 Target Cells Not Reportable 05/20/16 23:13 Tear Drop Cells Not Reportable 05/20/16 23:13 Ovalocytes Not Reportable 05/20/16 23:13 Helmet Cells Not Reportable 05/20/16 23:13 Mg-Dola Bodies Not Reportable 05/20/16 23:13 Albia Rings Not Reportable 05/20/16 23:13 Thaddeus Cells Not Reportable 05/20/16 23:13 Bite Cells Not Reportable 05/20/16 23:13 Crenated Cell Not Reportable 05/20/16 23:13 Elliptocytes Not Reportable 05/20/16 23:13 Acanthocytes (Spur) Not Reportable 05/20/16 23:13 Rouleaux Not Reportable 05/20/16 23:13 Hemoglobin C Crystals Not Reportable 05/20/16 23:13 Schistocytes Not Reportable 05/20/16 23:13 Malaria parasites Not Reportable 05/20/16 23:13 Will Bodies Not Reportable 05/20/16 23:13 Hem Pathologist Commnt No 05/20/16 23:13 Sodium 138 mmol/L (137-145) 05/23/16 03:27 Potassium 4.1 mmol/L (3.6-5.0) 05/23/16 03:27 Chloride 102.8 mmol/L (98-107) 05/23/16 03:27 Carbon Dioxide 23 mmol/L (22-30) 05/23/16 03:27 Anion Gap 16 mmol/L 05/23/16 03:27 BUN 15 mg/dL (9-20) 05/23/16 03:27 Creatinine 0.9 mg/dL (0.8-1.5) 05/23/16 03:27 Estimated GFR > 60 ml/min 05/23/16 03:27 BUN/Creatinine Ratio 16.66 % 05/23/16 03:27 Glucose 103 mg/dL (75-100) H 05/23/16 03:27 POC Glucose 102 (70-105) 05/23/16 05:33 Lactic Acid 2.7 mmol/L (0.7-2.0) H* 05/21/16 15:59 Calcium 8.6 mg/dL (8.4-10.2) 05/23/16 03:27 Phosphorus 3.7 mg/dL (2.5-4.5) 05/22/16 04:33 Magnesium 2.1 mg/dL (1.7-2.3) 05/22/16 04:33 Total Bilirubin 0.8 mg/dL (0.1-1.2) 05/23/16 03:27 Direct Bilirubin 0.3 mg/dL (0-0.2) H 05/23/16 03:27 Indirect Bilirubin 0.5 mg/dL 05/23/16 03:27 AST 31 units/L (5-40) 05/23/16 03:27 ALT 143 units/L (7-56) H 05/23/16 03:27 Alkaline Phosphatase 79 units/L (35-129) 05/23/16 03:27 Total Creatine Kinase 112 units/L (55-170) 05/21/16 20:00 CK-MB (CK-2) 4.2 ng/mL (0.0-4.0) H 05/21/16 13:01 CK-MB (CK-2) Rel Index 3.3 (0-4) 05/21/16 20:00 Troponin T 0.041 ng/mL (0.00-0.029) H 05/21/16 20:00 C-Reactive Protein 1.20 mg/dL (0.00-1.30) 05/21/16 15:21 NT-Pro-B Natriuret Pep 2732 pg/mL (0-900) H 05/20/16 23:13 Total Protein 5.6 g/dL (6.3-8.2) L 05/23/16 03:27 Albumin 3.1 g/dL (3.9-5) L 05/23/16 03:27 Albumin/Globulin Ratio 1.2 % 05/23/16 03:27 Triglycerides 71 mg/dL (2-149) 05/21/16 13:01 Cholesterol 157 mg/dL (50-199) 05/21/16 13:01 LDL Cholesterol Direct 75 mg/dL (50-130) 05/21/16 13:01 HDL Cholesterol 68 mg/dL (40-59) H 05/21/16 13:01 Cholesterol/HDL Ratio 2.30 % 05/21/16 13:01 Amylase 79 units/L (27-131) 05/23/16 03:27 Lipase 36 units/L (13-60) 05/20/16 23:13 TSH 3.890 mlU/mL (0.270-4.200) 05/21/16 10:51 Urine Color Straw (Yellow) 05/20/16 23:18 Urine Turbidity Clear (Clear) 05/20/16 23:18 Urine pH 6.0 (5.0-7.0) 05/20/16 23:18 Ur Specific [place] 1.003 (1.003-1.030) 05/20/16 23:18 Urine Protein <15 mg/dl mg/dL (Negative) 05/20/16 23:18 Urine Glucose (UA) Neg mg/dL (Negative) 05/20/16 23:18 Urine Ketones Neg mg/dL (Negative) 05/20/16 23:18 Urine Blood Sm (Negative) 05/20/16 23:18 Urine Nitrite Neg (Negative) 05/20/16 23:18 Urine Bilirubin Neg (Negative) 05/20/16 23:18 Urine Urobilinogen < 2.0 mg/dL (<2.0) 05/20/16 23:18 Ur Leukocyte Esterase Neg (Negative) 05/20/16 23:18 Urine WBC (Auto) < 1.0 /HPF (0.0-6.0) 05/20/16 23:18 Urine RBC (Auto) < 1.0 /HPF (0.0-6.0) 05/20/16 23:18 U Epithel Cells (Auto) < 1.0 /HPF (0-13.0) 05/20/16 23:18 Urine Mucus Few /HPF 05/20/16 23:18
[2016-05-23] MEDS: LEVAQUIN PO SCH (10:58)
[2016-05-23] MEDS: LOVENOX SUB-Q SCH (10:58)
[2016-05-23] MEDS: HALFPRIN EC PO SCH (10:59)
[2016-05-23] MEDS: PROTONIX PO SCH (10:59)
[2016-05-23] MEDS ORDERED: NACL 0.9% 500 ML 500 ML IV SCH (13:00)
--- NOTE | 2016-05-23 13:06 | Progress Note ---
Assessment and Plan Awaiting permanent pacemaker placement tomorrow. The patient will be nothing by mouth after midnight tonight. Until permanent pacemaker is implanted and temporarily removed, patient needs to be on complete bedrest with head of bed no higher than 30. Subjective Date of service: 05/23/16 Principal diagnosis: Symptomatic Bradycardia Interval history: The patient is comfortable, no cardiac complaints reported. Unfortunately, on my visit to the room I found him sitting up in bed almost upright. I have reminded the nursing staff of the importance of maintaining complete bedrest with head of bed no higher than 30 while he has a temporary transvenous pacemaker in situ via the right femoral vein. On portable sawyer, he is and is stable, V paced rhythm at 60/m. Blood pressure is 120 systolic. Objective Vital Signs Temp Pulse Pulse Pulse Resp Resp Resp 05/23/16 12:30 61 20 05/23/16 12:20 61 19 05/23/16 12:10 61 18 05/23/16 12:00 97.4 F L 61 61 15 05/23/16 11:50 61 17 05/23/16 11:40 61 15 05/23/16 11:30 61 20 05/23/16 11:20 61 20 05/23/16 11:10 61 16 05/23/16 11:00 61 17 05/23/16 10:50 61 14 05/23/16 10:40 61 18 05/23/16 10:30 61 13 05/23/16 10:20 61 12 05/23/16 10:10 62 20 05/23/16 10:00 61 18 16 05/23/16 09:50 61 17 05/23/16 09:40 61 19 05/23/16 09:30 61 21 05/23/16 09:20 61 17 05/23/16 09:10 61 20 05/23/16 09:00 61 67 18 16 05/23/16 08:50 61 13 05/23/16 08:48 61 18 05/23/16 08:40 61 16 05/23/16 08:30 61 16 05/23/16 08:20 61 17 05/23/16 08:10 61 17 05/23/16 08:00 61 61 16 05/23/16 07:50 61 12 05/23/16 07:40 61 13 05/23/16 07:39 97.5 F L 04/09/17 07:30 61 15 05/23/16 07:20 61 12 05/23/16 07:10 61 12 05/23/16 07:00 61 13 05/23/16 06:50 61 12 05/23/16 06:40 61 11 L 05/23/16 06:30 61 15 05/23/16 06:20 61 9 L 05/23/16 06:10 61 15 05/23/16 06:00 61 11 L 05/23/16 05:50 61 12 05/23/16 05:40 61 14 05/23/16 05:30 61 16 05/23/16 05:20 61 18 05/23/16 05:10 61 13 05/23/16 05:00 61 11 L 05/23/16 04:50 61 10 L 05/23/16 04:40 61 15 05/23/16 04:30 61 15 05/23/16 04:20 61 13 05/23/16 04:10 61 12 05/23/16 04:00 97.5 F L 61 14 05/23/16 03:50 61 11 L 05/23/16 03:40 61 14 05/23/16 03:30 61 14 05/23/16 03:20 61 11 L 05/23/16 03:10 61 18 05/23/16 03:00 61 14 05/23/16 02:50 61 19 05/23/16 02:40 61 15 05/23/16 02:30 61 13 05/23/16 02:20 61 20 05/23/16 02:10 61 14 05/23/16 02:00 61 13 05/23/16 01:50 61 13 05/23/16 01:40 61 12 05/23/16 01:30 61 15 05/23/16 01:20 61 12 05/23/16 01:10 61 12 05/23/16 01:00 61 16 05/23/16 00:50 61 12 05/23/16 00:40 61 20 05/23/16 00:30 61 14 05/23/16 00:20 61 16 05/23/16 00:10 61 18 05/23/16 00:00 61 13 05/22/16 23:50 61 16 05/22/16 23:45 97.9 F 05/22/16 23:40 61 19 05/22/16 23:30 61 18 05/22/16 23:20 61 12 05/22/16 23:10 61 12 05/22/16 23:00 61 14 05/22/16 22:50 61 16 05/22/16 22:40 61 17 05/22/16 22:30 62 15 05/22/16 22:20 61 15 05/22/16 22:10 61 15 05/22/16 22:00 61 14 05/22/16 21:50 61 14 05/22/16 21:40 61 17 05/22/16 21:30 61 19 05/22/16 21:20 61 13 05/22/16 21:10 61 14 05/22/16 21:00 61 16 05/22/16 20:50 61 16 05/22/16 20:40 62 21 05/22/16 20:30 61 17 05/22/16 20:20 61 17 05/22/16 20:10 61 16 05/22/16 20:07 61 12 05/22/16 20:06 05/22/16 20:00 98.1 F 61 22 05/22/16 19:55 61 11 L 05/22/16 19:50 61 19 05/22/16 19:40 61 18 05/22/16 19:30 61 17 05/22/16 19:20 61 24 05/22/16 19:10 61 23 05/22/16 19:00 61 22 05/22/16 18:50 61 22 05/22/16 18:40 61 23 05/22/16 18:30 61 14 05/22/16 18:20 61 17 05/22/16 18:10 61 20 05/22/16 18:00 61 21 05/22/16 17:50 61 25 H 05/22/16 17:40 61 18 05/22/16 17:30 61 19 05/22/16 17:20 61 17 05/22/16 17:10 61 11 L 05/22/16 17:00 61 12 05/22/16 16:50 61 20 05/22/16 16:40 61 19 05/22/16 16:30 61 17 05/22/16 16:20 61 21 05/22/16 16:10 61 23 05/22/16 16:00 98.0 F 61 17 05/22/16 15:50 61 22 05/22/16 15:40 61 19 05/22/16 15:30 61 15 05/22/16 15:27 61 16 05/22/16 15:20 61 10 L 05/22/16 15:17 61 22 05/22/16 15:16 05/22/16 15:10 61 17 05/22/16 15:00 61 17 05/22/16 14:50 61 18 05/22/16 14:40 61 16 05/22/16 14:30 61 20 05/22/16 14:20 61 16 05/22/16 14:10 61 16 05/22/16 14:00 61 17 05/22/16 13:50 61 15 05/22/16 13:40 61 15 05/22/16 13:30 61 20 05/22/16 13:20 61 19 05/22/16 13:10 61 23 BP Pulse Ox 05/23/16 12:30 121/65 97 05/23/16 12:20 113/60 98 05/23/16 12:10 113/60 98 05/23/16 12:00 113/60 97 05/23/16 11:50 120/61 98 05/23/16 11:40 120/61 97 05/23/16 11:30 120/61 95 05/23/16 11:20 133/70 97 05/23/16 11:10 133/70 96 05/23/16 11:00 133/70 96 05/23/16 10:50 124/68 98 05/23/16 10:40 124/68 97 05/23/16 10:30 124/68 98 05/23/16 10:20 120/62 97 05/23/16 10:10 97 05/23/16 10:00 143/72 95 05/23/16 09:50 143/72 96 05/23/16 09:40 143/72 95 05/23/16 09:30 143/72 05/23/16 09:20 138/66 96 05/23/16 09:10 138/66 96 05/23/16 09:00 138/66 95 05/23/16 08:50 125/67 98 05/23/16 08:48 97 05/23/16 08:40 125/67 97 05/23/16 08:30 125/67 97 05/23/16 08:20 137/68 97 05/23/16 08:10 137/68 97 05/23/16 08:00 137/68 96 05/23/16 07:50 141/62 98 05/23/16 07:40 141/62 98 05/23/16 07:39 05/23/16 07:30 139/75 96 05/23/16 07:20 139/58 96 05/23/16 07:10 126/66 97 05/23/16 07:00 141/62 97 05/23/16 06:50 134/69 99 05/23/16 06:40 126/66 98 05/23/16 06:30 126/66 95 05/23/16 06:20 107/62 97 05/23/16 06:10 112/61 95 05/23/16 06:00 112/61 97 05/23/16 05:50 126/66 98 05/23/16 05:40 115/69 98 05/23/16 05:30 115/69 97 05/23/16 05:20 115/61 96 05/23/16 05:10 113/58 99 05/23/16 05:00 113/58 98 05/23/16 04:50 124/64 98 05/23/16 04:40 125/69 99 05/23/16 04:30 125/69 98 05/23/16 04:20 117/65 92 05/23/16 04:10 122/72 96 05/23/16 04:00 122/72 97 05/23/16 03:50 126/72 97 05/23/16 03:40 132/73 96 05/23/16 03:30 132/73 96 05/23/16 03:20 134/74 98 05/23/16 03:10 140/65 96 05/23/16 03:00 110/59 95 05/23/16 02:50 110/59 95 05/23/16 02:40 109/64 96 05/23/16 02:30 118/59 99 05/23/16 02:20 119/64 95 05/23/16 02:10 109/64 97 05/23/16 02:00 109/64 98 05/23/16 01:50 111/66 97 05/23/16 01:40 107/68 97 05/23/16 01:30 107/68 98 05/23/16 01:20 128/60 98 05/23/16 01:10 117/58 98 05/23/16 01:00 117/58 98 05/23/16 00:50 119/58 99 05/23/16 00:40 114/61 94 05/23/16 00:30 114/61 97 05/23/16 00:20 121/55 98 05/23/16 00:10 111/52 95 05/23/16 00:00 111/52 98 05/22/16 23:50 119/56 97 05/22/16 23:45 05/22/16 23:40 124/62 95 05/22/16 23:30 124/62 97 05/22/16 23:20 124/61 98 05/22/16 23:10 111/57 98 05/22/16 23:00 111/57 97 05/22/16 22:50 109/62 98 05/22/16 22:40 123/54 98 05/22/16 22:30 123/54 97 05/22/16 22:20 114/63 97 05/22/16 22:10 123/61 98 05/22/16 22:00 123/61 97 05/22/16 21:50 123/64 97 05/22/16 21:40 135/64 97 05/22/16 21:30 135/64 96 05/22/16 21:20 123/66 95 05/22/16 21:10 111/66 96 05/22/16 21:00 111/66 96 05/22/16 20:50 119/64 96 05/22/16 20:40 117/62 95 05/22/16 20:30 117/62 96 05/22/16 20:20 137/67 96 05/22/16 20:10 125/65 96 05/22/16 20:07 05/22/16 20:06 97 05/22/16 20:00 125/65 97 05/22/16 19:55 05/22/16 19:50 129/66 97 05/22/16 19:40 125/64 97 05/22/16 19:30 125/64 96 05/22/16 19:20 141/69 93 05/22/16 19:10 141/69 95 05/22/16 19:00 141/69 96 05/22/16 18:50 127/61 97 05/22/16 18:40 143/71 97 05/22/16 18:30 143/71 97 05/22/16 18:20 140/73 97 05/22/16 18:10 135/71 97 05/22/16 18:00 135/71 97 05/22/16 17:50 139/68 96 05/22/16 17:40 138/68 96 05/22/16 17:30 138/68 97 05/22/16 17:20 157/67 96 05/22/16 17:10 145/71 95 05/22/16 17:00 145/71 96 05/22/16 16:50 139/71 95 05/22/16 16:40 138/71 97 05/22/16 16:30 138/71 95 05/22/16 16:20 128/70 96 05/22/16 16:10 122/71 96 05/22/16 16:00 138/71 95 05/22/16 15:50 131/71 96 05/22/16 15:40 133/67 96 05/22/16 15:30 132/78 97 05/22/16 15:27 05/22/16 15:20 132/78 99 05/22/16 15:17 05/22/16 15:16 98 05/22/16 15:10 142/69 98 05/22/16 15:00 138/71 95 05/22/16 14:50 136/67 97 05/22/16 14:40 141/69 98 05/22/16 14:30 141/69 98 05/22/16 14:20 135/68 97 05/22/16 14:10 131/67 97 05/22/16 14:00 138/71 95 05/22/16 13:50 143/69 98 05/22/16 13:40 136/67 98 05/22/16 13:30 136/67 98 05/22/16 13:20 134/67 98 05/22/16 13:10 128/65 98 - Physical Examination General: Appears Well, No Apparent Distress HEENT: Positive: PERRL Neck: Positive: neck supple Cardiac: Positive: Reg Rate and Rhythm Lungs: Positive: clear to auscultation Neuro: Positive: Grossly Intact Abdomen: Positive: Soft Skin: Positive: Clear Extremities: Absent: edema - Labs and Meds Cardiac Enzymes 05/23/16 Range/Units 03:27 AST 31 (5-40) units/L CBC 05/23/16 Range/Units 03:27 WBC 12.8 H (4.5-11.0) K/mm3 RBC 4.96 (3.65-5.03) M/mm3 Hgb 14.6 (11.8-15.2) gm/dl Hct 45.7 H (35.5-45.6) % Plt Count 179 (140-440) K/mm3 Lymph # 2.4 (1.2-5.4) K/mm3 [place] # 0.9 H (0.0-0.8) K/mm3 Eos # 0.2 (0.0-0.4) K/mm3 Baso # 0.0 (0.0-0.1) K/mm3 Comprehensive Metabolic Panel 05/23/16 Range/Units 03:27 Sodium 138 (137-145) mmol/L Potassium 4.1 (3.6-5.0) mmol/L Chloride 102.8 (98-107) mmol/L Carbon Dioxide 23 (22-30) mmol/L BUN 15 (9-20) mg/dL Creatinine 0.9 (0.8-1.5) mg/dL Glucose 103 H (75-100) mg/dL Calcium 8.6 (8.4-10.2) mg/dL Direct Bilirubin 0.3 H (0-0.2) mg/dL Indirect Bilirubin 0.5 mg/dL AST 31 (5-40) units/L ALT 143 H (7-56) units/L Alkaline Phosphatase 79 (35-129) units/L Total Protein 5.6 L (6.3-8.2) g/dL Albumin 3.1 L (3.9-5) g/dL
--- NOTE | 2016-05-23 13:45 | Progress Note ---
Assessment and Plan Full consult dictated. no evidence of acute cholecystitis at this time. Chronic constipation and abd distention (non tender) will need further w/u including HIDA & GI eval once permanent pacemaker inserted and stable from cardiac perspective will follow marcell nguyễn Objective Vital Signs - 12hr 05/23/16 05/23/16 05/23/16 01:50 02:00 02:10 Temperature Pulse Rate 61 61 61 Pulse Rate [ Anterior Bilateral Throughout] Pulse Rate [ From Monitor] Respiratory 13 13 14 Rate Respiratory Rate [Anterior Bilateral Throughout] Respiratory Rate [abd] Blood Pressure 111/66 109/64 109/64 O2 Sat by Pulse 97 98 97 Oximetry 05/23/16 05/23/16 05/23/16 02:20 02:30 02:40 Temperature Pulse Rate 61 61 61 Pulse Rate [ Anterior Bilateral Throughout] Pulse Rate [ From Monitor] Respiratory 20 13 15 Rate Respiratory Rate [Anterior Bilateral Throughout] Respiratory Rate [abd] Blood Pressure 119/64 118/59 109/64 O2 Sat by Pulse 95 99 96 Oximetry 05/23/16 05/23/16 05/23/16 02:50 03:00 03:10 Temperature Pulse Rate 61 61 61 Pulse Rate [ Anterior Bilateral Throughout] Pulse Rate [ From Monitor] Respiratory 19 14 18 Rate Respiratory Rate [Anterior Bilateral Throughout] Respiratory Rate [abd] Blood Pressure 110/59 110/59 140/65 O2 Sat by Pulse 95 95 96 Oximetry 05/23/16 05/23/16 05/23/16 03:20 03:30 03:40 Temperature Pulse Rate 61 61 61 Pulse Rate [ Anterior Bilateral Throughout] Pulse Rate [ From Monitor] Respiratory 11 L 14 14 Rate Respiratory Rate [Anterior Bilateral Throughout] Respiratory Rate [abd] Blood Pressure 134/74 132/73 132/73 O2 Sat by Pulse 98 96 96 Oximetry 05/23/16 05/23/16 05/23/16 03:50 04:00 04:10 Temperature 97.5 F L Pulse Rate 61 61 61 Pulse Rate [ Anterior Bilateral Throughout] Pulse Rate [ From Monitor] Respiratory 11 L 14 12 Rate Respiratory Rate [Anterior Bilateral Throughout] Respiratory Rate [abd] Blood Pressure 126/72 122/72 122/72 O2 Sat by Pulse 97 97 96 Oximetry 05/23/16 05/23/16 05/23/16 04:20 04:30 04:40 Temperature Pulse Rate 61 61 61 Pulse Rate [ Anterior Bilateral Throughout] Pulse Rate [ From Monitor] Respiratory 13 15 15 Rate Respiratory Rate [Anterior Bilateral Throughout] Respiratory Rate [abd] Blood Pressure 117/65 125/69 125/69 O2 Sat by Pulse 92 98 99 Oximetry 05/23/16 05/23/16 05/23/16 04:50 05:00 05:10 Temperature Pulse Rate 61 61 61 Pulse Rate [ Anterior Bilateral Throughout] Pulse Rate [ From Monitor] Respiratory 10 L 11 L 13 Rate Respiratory Rate [Anterior Bilateral Throughout] Respiratory Rate [abd] Blood Pressure 124/64 113/58 113/58 O2 Sat by Pulse 98 98 99 Oximetry 05/23/16 05/23/16 05/23/16 05:20 05:30 05:40 Temperature Pulse Rate 61 61 61 Pulse Rate [ Anterior Bilateral Throughout] Pulse Rate [ From Monitor] Respiratory 18 16 14 Rate Respiratory Rate [Anterior Bilateral Throughout] Respiratory Rate [abd] Blood Pressure 115/61 115/69 115/69 O2 Sat by Pulse 96 97 98 Oximetry 05/23/16 05/23/16 05/23/16 05:50 06:00 06:10 Temperature Pulse Rate 61 61 61 Pulse Rate [ Anterior Bilateral Throughout] Pulse Rate [ From Monitor] Respiratory 12 11 L 15 Rate Respiratory Rate [Anterior Bilateral Throughout] Respiratory Rate [abd] Blood Pressure 126/66 112/61 112/61 O2 Sat by Pulse 98 97 95 Oximetry 05/23/16 05/23/16 05/23/16 06:20 06:30 06:40 Temperature Pulse Rate 61 61 61 Pulse Rate [ Anterior Bilateral Throughout] Pulse Rate [ From Monitor] Respiratory 9 L 15 11 L Rate Respiratory Rate [Anterior Bilateral Throughout] Respiratory Rate [abd] Blood Pressure 107/62 126/66 126/66 O2 Sat by Pulse 97 95 98 Oximetry 05/23/16 05/23/16 05/23/16 06:50 07:00 07:10 Temperature Pulse Rate 61 61 61 Pulse Rate [ Anterior Bilateral Throughout] Pulse Rate [ From Monitor] Respiratory 12 13 12 Rate Respiratory Rate [Anterior Bilateral Throughout] Respiratory Rate [abd] Blood Pressure 134/69 141/62 126/66 O2 Sat by Pulse 99 97 97 Oximetry 05/23/16 05/23/16 05/23/16 07:20 07:30 07:39 Temperature 97.5 F L Pulse Rate 61 61 Pulse Rate [ Anterior Bilateral Throughout] Pulse Rate [ From Monitor] Respiratory 12 15 Rate Respiratory Rate [Anterior Bilateral Throughout] Respiratory Rate [abd] Blood Pressure 139/58 139/75 O2 Sat by Pulse 96 96 Oximetry 05/23/16 05/23/16 05/23/16 07:40 07:50 08:00 Temperature Pulse Rate 61 61 61 Pulse Rate [ Anterior Bilateral Throughout] Pulse Rate [ 61 From Monitor] Respiratory 13 12 16 Rate Respiratory Rate [Anterior Bilateral Throughout] Respiratory Rate [abd] Blood Pressure 141/62 141/62 137/68 O2 Sat by Pulse 98 98 96 Oximetry 05/23/16 05/23/16 05/23/16 08:10 08:20 08:30 Temperature Pulse Rate 61 61 61 Pulse Rate [ Anterior Bilateral Throughout] Pulse Rate [ From Monitor] Respiratory 17 17 16 Rate Respiratory Rate [Anterior Bilateral Throughout] Respiratory Rate [abd] Blood Pressure 137/68 137/68 125/67 O2 Sat by Pulse 97 97 97 Oximetry 05/23/16 05/23/16 05/23/16 08:40 08:48 08:50 Temperature Pulse Rate 61 61 Pulse Rate [ 61 Anterior Bilateral Throughout] Pulse Rate [ From Monitor] Respiratory 16 13 Rate Respiratory 18 Rate [Anterior Bilateral Throughout] Respiratory Rate [abd] Blood Pressure 125/67 125/67 O2 Sat by Pulse 97 97 98 Oximetry 05/23/16 05/23/16 05/23/16 09:00 09:10 09:20 Temperature Pulse Rate 61 61 61 Pulse Rate [ 67 Anterior Bilateral Throughout] Pulse Rate [ From Monitor] Respiratory 18 20 17 Rate Respiratory 16 Rate [Anterior Bilateral Throughout] Respiratory Rate [abd] Blood Pressure 138/66 138/66 138/66 O2 Sat by Pulse 95 96 96 Oximetry 05/23/16 05/23/16 05/23/16 09:30 09:40 09:50 Temperature Pulse Rate 61 61 61 Pulse Rate [ Anterior Bilateral Throughout] Pulse Rate [ From Monitor] Respiratory 21 19 17 Rate Respiratory Rate [Anterior Bilateral Throughout] Respiratory Rate [abd] Blood Pressure 143/72 143/72 143/72 O2 Sat by Pulse 95 96 Oximetry 05/23/16 05/23/16 05/23/16 10:00 10:10 10:20 Temperature Pulse Rate 61 62 61 Pulse Rate [ Anterior Bilateral Throughout] Pulse Rate [ From Monitor] Respiratory 18 20 12 Rate Respiratory Rate [Anterior Bilateral Throughout] Respiratory 16 Rate [abd] Blood Pressure 143/72 120/62 O2 Sat by Pulse 95 97 97 Oximetry 05/23/16 05/23/16 05/23/16 10:30 10:40 10:50 Temperature Pulse Rate 61 61 61 Pulse Rate [ Anterior Bilateral Throughout] Pulse Rate [ From Monitor] Respiratory 13 18 14 Rate Respiratory Rate [Anterior Bilateral Throughout] Respiratory Rate [abd] Blood Pressure 124/68 124/68 124/68 O2 Sat by Pulse 98 97 98 Oximetry 05/23/16 05/23/16 05/23/16 11:00 11:10 11:20 Temperature Pulse Rate 61 61 61 Pulse Rate [ Anterior Bilateral Throughout] Pulse Rate [ From Monitor] Respiratory 17 16 20 Rate Respiratory Rate [Anterior Bilateral Throughout] Respiratory Rate [abd] Blood Pressure 133/70 133/70 133/70 O2 Sat by Pulse 96 96 97 Oximetry 05/23/16 05/23/16 05/23/16 11:30 11:40 11:50 Temperature Pulse Rate 61 61 61 Pulse Rate [ Anterior Bilateral Throughout] Pulse Rate [ From Monitor] Respiratory 20 15 17 Rate Respiratory Rate [Anterior Bilateral Throughout] Respiratory Rate [abd] Blood Pressure 120/61 120/61 120/61 O2 Sat by Pulse 95 97 98 Oximetry 05/23/16 05/23/16 05/23/16 12:00 12:10 12:20 Temperature 97.4 F L Pulse Rate 61 61 61 Pulse Rate [ Anterior Bilateral Throughout] Pulse Rate [ 61 From Monitor] Respiratory 15 18 19 Rate Respiratory Rate [Anterior Bilateral Throughout] Respiratory Rate [abd] Blood Pressure 113/60 113/60 113/60 O2 Sat by Pulse 97 98 98 Oximetry 05/23/16 12:30 Temperature Pulse Rate 61 Pulse Rate [ Anterior Bilateral Throughout] Pulse Rate [ From Monitor] Respiratory 20 Rate Respiratory Rate [Anterior Bilateral Throughout] Respiratory Rate [abd] Blood Pressure 121/65 O2 Sat by Pulse 97 Oximetry - Labs 05/23/16 03:27 05/23/16 03:27 Diabetes panel 05/23/16 Range/Units 03:27 Sodium 138 (137-145) mmol/L Potassium 4.1 (3.6-5.0) mmol/L Chloride 102.8 (98-107) mmol/L Carbon Dioxide 23 (22-30) mmol/L BUN 15 (9-20) mg/dL Creatinine 0.9 (0.8-1.5) mg/dL Glucose 103 H (75-100) mg/dL Calcium 8.6 (8.4-10.2) mg/dL AST 31 (5-40) units/L ALT 143 H (7-56) units/L Alkaline Phosphatase 79 (35-129) units/L Total Protein 5.6 L (6.3-8.2) g/dL Albumin 3.1 L (3.9-5) g/dL Calcium panel 05/23/16 Range/Units 03:27 Calcium 8.6 (8.4-10.2) mg/dL Albumin 3.1 L (3.9-5) g/dL Pituitary panel 05/23/16 Range/Units 03:27 Sodium 138 (137-145) mmol/L Potassium 4.1 (3.6-5.0) mmol/L Chloride 102.8 (98-107) mmol/L Carbon Dioxide 23 (22-30) mmol/L BUN 15 (9-20) mg/dL Creatinine 0.9 (0.8-1.5) mg/dL Glucose 103 H (75-100) mg/dL Calcium 8.6 (8.4-10.2) mg/dL Adrenal panel 05/23/16 Range/Units 03:27 Sodium 138 (137-145) mmol/L Potassium 4.1 (3.6-5.0) mmol/L Chloride 102.8 (98-107) mmol/L Carbon Dioxide 23 (22-30) mmol/L BUN 15 (9-20) mg/dL Creatinine 0.9 (0.8-1.5) mg/dL Glucose 103 H (75-100) mg/dL Calcium 8.6 (8.4-10.2) mg/dL Total Bilirubin 0.8 (0.1-1.2) mg/dL AST 31 (5-40) units/L ALT 143 H (7-56) units/L Alkaline Phosphatase 79 (35-129) units/L Total Protein 5.6 L (6.3-8.2) g/dL Albumin 3.1 L (3.9-5) g/dL
--- NOTE | 2016-05-23 15:59 | Progress Note ---
Assessment and Plan - Patient Problems (1) Symptomatic bradycardia Current Visit: Yes Status: Acute (2) COPD with acute exacerbation Current Visit: Yes Status: Acute (3) Sleep disorder breathing Current Visit: Yes Status: Acute (4) Discharge planning issues Current Visit: Yes Status: Acute Subjective Date of service: 05/23/16 Principal diagnosis: Symptomatic Bradycardia Interval history: Seen and examined at bedside; 24 hour events reviewed; nursing and respiratory care staff consulted; no adverse overnight events reported to me; Objective Vital Signs - 12hr 05/23/16 05/23/16 05/23/16 04:00 04:10 04:20 Temperature 97.5 F L Pulse Rate 61 61 61 Pulse Rate [ Anterior Bilateral Throughout] Pulse Rate [ From Monitor] Respiratory 14 12 13 Rate Respiratory Rate [Anterior Bilateral Throughout] Respiratory Rate [abd] Blood Pressure 122/72 122/72 117/65 O2 Sat by Pulse 97 96 92 Oximetry 05/23/16 05/23/16 05/23/16 04:30 04:40 04:50 Temperature Pulse Rate 61 61 61 Pulse Rate [ Anterior Bilateral Throughout] Pulse Rate [ From Monitor] Respiratory 15 15 10 L Rate Respiratory Rate [Anterior Bilateral Throughout] Respiratory Rate [abd] Blood Pressure 125/69 125/69 124/64 O2 Sat by Pulse 98 99 98 Oximetry 05/23/16 05/23/16 05/23/16 05:00 05:10 05:20 Temperature Pulse Rate 61 61 61 Pulse Rate [ Anterior Bilateral Throughout] Pulse Rate [ From Monitor] Respiratory 11 L 13 18 Rate Respiratory Rate [Anterior Bilateral Throughout] Respiratory Rate [abd] Blood Pressure 113/58 113/58 115/61 O2 Sat by Pulse 98 99 96 Oximetry 05/23/16 05/23/16 05/23/16 05:30 05:40 05:50 Temperature Pulse Rate 61 61 61 Pulse Rate [ Anterior Bilateral Throughout] Pulse Rate [ From Monitor] Respiratory 16 14 12 Rate Respiratory Rate [Anterior Bilateral Throughout] Respiratory Rate [abd] Blood Pressure 115/69 115/69 126/66 O2 Sat by Pulse 97 98 98 Oximetry 05/23/16 05/23/16 05/23/16 06:00 06:10 06:20 Temperature Pulse Rate 61 61 61 Pulse Rate [ Anterior Bilateral Throughout] Pulse Rate [ From Monitor] Respiratory 11 L 15 9 L Rate Respiratory Rate [Anterior Bilateral Throughout] Respiratory Rate [abd] Blood Pressure 112/61 112/61 107/62 O2 Sat by Pulse 97 95 97 Oximetry 05/23/16 05/23/16 05/23/16 06:30 06:40 06:50 Temperature Pulse Rate 61 61 61 Pulse Rate [ Anterior Bilateral Throughout] Pulse Rate [ From Monitor] Respiratory 15 11 L 12 Rate Respiratory Rate [Anterior Bilateral Throughout] Respiratory Rate [abd] Blood Pressure 126/66 126/66 134/69 O2 Sat by Pulse 95 98 99 Oximetry 05/23/16 05/23/16 05/23/16 07:00 07:10 07:20 Temperature Pulse Rate 61 61 61 Pulse Rate [ Anterior Bilateral Throughout] Pulse Rate [ From Monitor] Respiratory 13 12 12 Rate Respiratory Rate [Anterior Bilateral Throughout] Respiratory Rate [abd] Blood Pressure 141/62 126/66 139/58 O2 Sat by Pulse 97 97 96 Oximetry 05/23/16 05/23/16 05/23/16 07:30 07:39 07:40 Temperature 97.5 F L Pulse Rate 61 61 Pulse Rate [ Anterior Bilateral Throughout] Pulse Rate [ From Monitor] Respiratory 15 13 Rate Respiratory Rate [Anterior Bilateral Throughout] Respiratory Rate [abd] Blood Pressure 139/75 141/62 O2 Sat by Pulse 96 98 Oximetry 05/23/16 05/23/16 05/23/16 07:50 08:00 08:10 Temperature Pulse Rate 61 61 61 Pulse Rate [ Anterior Bilateral Throughout] Pulse Rate [ 61 From Monitor] Respiratory 12 16 17 Rate Respiratory Rate [Anterior Bilateral Throughout] Respiratory Rate [abd] Blood Pressure 141/62 137/68 137/68 O2 Sat by Pulse 98 96 97 Oximetry 05/23/16 05/23/16 05/23/16 08:20 08:30 08:40 Temperature Pulse Rate 61 61 61 Pulse Rate [ Anterior Bilateral Throughout] Pulse Rate [ From Monitor] Respiratory 17 16 16 Rate Respiratory Rate [Anterior Bilateral Throughout] Respiratory Rate [abd] Blood Pressure 137/68 125/67 125/67 O2 Sat by Pulse 97 97 97 Oximetry 05/23/16 05/23/16 05/23/16 08:48 08:50 09:00 Temperature Pulse Rate 61 61 Pulse Rate [ 61 67 Anterior Bilateral Throughout] Pulse Rate [ From Monitor] Respiratory 13 18 Rate Respiratory 18 16 Rate [Anterior Bilateral Throughout] Respiratory Rate [abd] Blood Pressure 125/67 138/66 O2 Sat by Pulse 97 98 95 Oximetry 05/23/16 05/23/1605/23/17 09:10 09:20 09:30 Temperature Pulse Rate 61 61 61 Pulse Rate [ Anterior Bilateral Throughout] Pulse Rate [ From Monitor] Respiratory 20 17 21 Rate Respiratory Rate [Anterior Bilateral Throughout] Respiratory Rate [abd] Blood Pressure 138/66 138/66 143/72 O2 Sat by Pulse 96 96 Oximetry 05/23/16 05/23/16 05/23/16 09:40 09:50 10:00 Temperature Pulse Rate 61 61 61 Pulse Rate [ Anterior Bilateral Throughout] Pulse Rate [ From Monitor] Respiratory 19 17 18 Rate Respiratory Rate [Anterior Bilateral Throughout] Respiratory 16 Rate [abd] Blood Pressure 143/72 143/72 143/72 O2 Sat by Pulse 95 96 95 Oximetry 05/23/16 05/23/16 05/23/16 10:10 10:20 10:30 Temperature Pulse Rate 62 61 61 Pulse Rate [ Anterior Bilateral Throughout] Pulse Rate [ From Monitor] Respiratory 20 12 13 Rate Respiratory Rate [Anterior Bilateral Throughout] Respiratory Rate [abd] Blood Pressure 120/62 124/68 O2 Sat by Pulse 97 97 98 Oximetry 05/23/16 05/23/16 05/23/16 10:40 10:50 11:00 Temperature Pulse Rate 61 61 61 Pulse Rate [ Anterior Bilateral Throughout] Pulse Rate [ From Monitor] Respiratory 18 14 17 Rate Respiratory Rate [Anterior Bilateral Throughout] Respiratory Rate [abd] Blood Pressure 124/68 124/68 133/70 O2 Sat by Pulse 97 98 96 Oximetry 05/23/16 05/23/16 05/23/16 11:10 11:20 11:30 Temperature Pulse Rate 61 61 61 Pulse Rate [ Anterior Bilateral Throughout] Pulse Rate [ From Monitor] Respiratory 16 20 20 Rate Respiratory Rate [Anterior Bilateral Throughout] Respiratory Rate [abd] Blood Pressure 133/70 133/70 120/61 O2 Sat by Pulse 96 97 95 Oximetry 05/23/16 05/23/16 05/23/16 11:40 11:50 12:00 Temperature 97.4 F L Pulse Rate 61 61 61 Pulse Rate [ Anterior Bilateral Throughout] Pulse Rate [ 61 From Monitor] Respiratory 15 17 15 Rate Respiratory Rate [Anterior Bilateral Throughout] Respiratory Rate [abd] Blood Pressure 120/61 120/61 113/60 O2 Sat by Pulse 97 98 97 Oximetry 05/23/16 05/23/16 05/23/16 12:10 12:20 12:30 Temperature Pulse Rate 61 61 61 Pulse Rate [ Anterior Bilateral Throughout] Pulse Rate [ From Monitor] Respiratory 18 19 20 Rate Respiratory Rate [Anterior Bilateral Throughout] Respiratory Rate [abd] Blood Pressure 113/60 113/60 121/65 O2 Sat by Pulse 98 98 97 Oximetry 05/23/16 05/23/16 14:37 14:45 Temperature Pulse Rate Pulse Rate [ 61 61 Anterior Bilateral Throughout] Pulse Rate [ From Monitor] Respiratory Rate Respiratory 12 12 Rate [Anterior Bilateral Throughout] Respiratory Rate [abd] Blood Pressure O2 Sat by Pulse Oximetry Constitutional: no acute distress, alert Eyes: non-icteric ENT: oropharynx moist Neck: supple, no lymphadenopathy Effort: normal Ascultation: Bilateral: clear, diminished breath sounds Cardiovascular: regular rate and rhythm, other (paced) Gastrointestinal: normoactive bowel sounds, soft, non-tender, non-distended Integumentary: normal Extremities: no cyanosis, pink and warm, pulses normal, no ischemia or petechiae , edema (1++) Neurologic: normal mental status, non-focal exam, pupils equal and round, motor strength normal and Psychiatric: mood appropriate, affect normal CBC and BMP: 05/23/16 03:27 05/23/16 03:27 Abnormal lab findings: Abnormal Labs 05/21/16 05/21/16 05/21/16 13:01 15:59 20:00 WBC Hct RDW Lymph % (Auto) Harmon # Seg Neutrophils % Seg Neutrophils # Carbon Dioxide Glucose POC Glucose Lactic Acid 2.7 H* Direct Bilirubin AST ALT CK-MB (CK-2) 4.2 H Troponin T 0.035 H D 0.041 H Total Protein Albumin HDL Cholesterol 68 H 05/22/16 05/22/16 05/22/16 04:33 04:33 13:56 WBC 16.1 H Hct RDW 16.1 H Lymph % (Auto) 12.2 L Harmon # 1.1 H Seg Neutrophils % 80.0 H Seg Neutrophils # 12.9 H Carbon Dioxide 20 L Glucose POC Glucose 108 H Lactic Acid Direct Bilirubin 0.3 H AST 52 H ALT 203 H CK-MB (CK-2) Troponin T Total Protein 5.8 L Albumin 3.2 L HDL Cholesterol 05/22/16 05/23/16 05/23/16 17:45 01:49 03:27 WBC 12.8 H Hct 45.7 H RDW 15.6 H Lymph % (Auto) Harmon # 0.9 H Seg Neutrophils % 72.1 H Seg Neutrophils # 9.3 H Carbon Dioxide Glucose POC Glucose 139 H 107 H Lactic Acid Direct Bilirubin AST ALT CK-MB (CK-2) Troponin T Total Protein Albumin HDL Cholesterol 05/23/16 05/23/16 05/23/16 03:27 10:11 14:27 WBC Hct RDW Lymph % (Auto) Harmon # Seg Neutrophils % Seg Neutrophils # Carbon Dioxide Glucose 103 H POC Glucose 118 H 122 H Lactic Acid Direct Bilirubin 0.3 H AST ALT 143 H CK-MB (CK-2) Troponin T Total Protein 5.6 L Albumin 3.1 L HDL Cholesterol
--- NOTE | 2016-05-23 21:11 | Consultation ---
REASON FOR CONSULTATION: Rule out biliary colic/cholecystitis. HISTORY OF PRESENT ILLNESS: The patient is a very pleasant 75-year-old gentleman who presented to the Emergency Room with a nonspecific abdominal pain, but the patient states this was actually more in the left flank area. Also, was complaining of abdominal distention. Denied any nausea or vomiting. States he has been tolerating his diet without incident. Last bowel movement; however, was back on Tuesday. PAST MEDICAL HISTORY: Pertinent for glaucoma, recent bradycardia, and COPD. It appears the patient's heart rate dropped into the 20s while he was in the Emergency Room. Cardiology has since seen the patient and temporary pacemaker placed. The patient is pending a permanent pacemaker tomorrow. PAST SURGICAL HISTORY: Negative. ALLERGIES: No known allergies. MEDICATIONS: Include inhaler, albuterol, and baby aspirin. FAMILY HISTORY: Negative. SOCIAL HISTORY: One pack a day smoker for approximately 60 years, states he quit approximately 2 years ago. Occasional ethanol intake or rare. PHYSICAL EXAMINATION: GENERAL: At this time revealed the patient to be awake, alert, comfortable, resting in bed, in no acute distress. VITAL SIGNS: Show him to be afebrile, blood pressure is 121/65, pulse currently is 61, respiratory rate is 18. ABDOMEN: Examination of the abdomen reveals it to be 1+ distended, but nontender. Bowel sounds are somewhat hypoactive. There is no right upper quadrant tenderness that can be elicited. LABORATORY DATA: Lab work at present includes a CBC which shows a white count of 12.8, H and H is 14.6 and 45.7. Electrolytes are essentially within normal limits. Total bilirubin is 0.8, AST is 31, ALT is 143, alkaline phosphatase is 79. Gallbladder ultrasound and CAT scan have been done, which I have reviewed with the radiologist. The gallbladder ultrasound shows possible gallbladder sludge. No evidence of any gallbladder wall thickening or pericholecystic fluid, no real signs of any acute cholecystitis. The CT scan again does not show any real evidence of acute cholecystitis. IMPRESSION: At this time is that of a 75-year-old pleasant gentleman with nonspecific abdominal pain and history of constipation. Most pertinent medical issues right now is severe bradycardia. RECOMMENDATION: At this time, the patient cannot be moved or transported as per Cardiology recommendations until permanent pacemaker is placed. We will order a HIDA scan to be done once he is cleared from the cardiac perspective. Also, would recommend GI evaluation. We will begin some enemas once Cardiology has cleared him and the patient will most likely need further GI workup including a bare metal or possible colonoscopy as per GEM again once cleared cardiac de dios. I will follow with you. Thank you very much for consultation. JOB# [id number] FP/NTS
[2016-05-23] MEDS: NACL 0.9% 1000 ML 1,000 ML IV SCH (23:04)
[2016-05-24 04:29] LABS: Basophils % (Auto) 0.3 % (0.0-1.8); Eosinophils % (Auto) 2.8 % (0.0-4.3); Hematocrit 47.6 % (35.5-45.6); Hemoglobin 15.1 gm/dl (11.8-15.2); Mean Corpuscular HGB Conc 32 % (32-34); Mean Corpuscular Hemoglobin 30 pg (28-32); Mean Corpuscular Volume 94 fl (84-94); Red Blood Count 5.09 M/mm3 (3.65-5.03); Red Cell Distribution Width 15.9 % (13.2-15.2); White Blood Count 11.4 K/mm3 (4.5-11.0)
[2016-05-24 04:40] LABS: Platelet Count 163 K/mm3 (140-440)
[2016-05-24 04:50] LABS: Alanine Aminotransferase 100 units/L (7-56); Albumin 2.8 g/dL (3.9-5); Alkaline Phosphatase 70 units/L (35-129); Anion Gap 15 mmol/L; BUN/Creatinine Ratio 16.25; Bilirubin,Direct 0.2 mg/dL (0-0.2); Bilirubin,Indirect 0.5 mg/dL; Bilirubin,Total 0.7 mg/dL (0.1-1.2); Blood Urea Nitrogen 13 mg/dL (9-20); Calcium 8.6 mg/dL (8.4-10.2); Carbon Dioxide 23 mmol/L (22-30); Chloride 101.5 mmol/L (98-107); Glucose 101 mg/dL (75-100); Magnesium 2.3 mg/dL (1.7-2.3); Potassium 4.8 mmol/L (3.6-5.0); Sodium 135 mmol/L (137-145); Total Protein 5.5 g/dL (6.3-8.2)
[2016-05-24 05:23] LABS: INR 1.17 (0.87-1.13); Partial Thromboplastin Time 23.3 Sec. (24.2-36.6)
[2016-05-24] MEDS ORDERED: NACL 0.9% 1 ML, VANCOMYCIN VIAL 1,000 MG IR ONE (05:48)
[2016-05-24] MEDS: HALFPRIN EC PO SCH (06:00)
[2016-05-24] MEDS ORDERED: NACL 0.9% 500 ML IR ONE (06:45)
[2016-05-24] MEDS ORDERED: MARCAINE 0.25% INFILTRATI ONE (06:46)
[2016-05-24] MEDS ORDERED: XYLOCAINE 2% INFILTRATI ONE (06:46)
[2016-05-24] MEDS ORDERED: ANCEF/STERILE WATER 2 GM/20 ML 2 GM/20 ML SYRINGE IV ONE (06:47)
[2016-05-24] MEDS ORDERED: VERSED ONE (06:47)
[2016-05-24] MEDS: SUBLIMAZE ONE ×3 (07:20→08:10)
[2016-05-24] MEDS: VERSED ONE ×2 (07:24→07:30)
[2016-05-24] MEDS ORDERED: VANCOMYCIN VIAL 1,000 MG in NACL 0.9% 1,000 ML IRRIGATION ONE (07:30)
--- NOTE | 2016-05-24 07:46 | Progress Note ---
Assessment and Plan Assessment and plan: --Severe bradycardia, status post permanent pacemaker Functional and pacing at 80s Continue supportive care --Moderate protein calorie malnutrition Nutrition supplements and supportive care --Abdominal pain/constipation Secondary to cholelithiasis and gallbladder sludge surgical evaluation and HIDA scan tomorrow --Transaminitis Closely monitor liver function --History of bronchitis Oxygen titrated to O2 sats more than 90% Nebulizers as needed --Leukocytosis Trending down --History of glaucoma Hold eyedrops at this point, resume once his heart rate is stabilized --DVT prophylaxis with Lovenox --Full CODE STATUS Closely monitor the patient Plan of care discussed with the patient, at the bedside, his nurse History Interval history: Sincerely and evaluated in his room in ICU medical records reviewed Underwent permanent pacemaker today tolerated the procedure well Pacemaker functional .Pacing 80s Chest pain shortness of breath Hospitalist Physical - Constitutional Vitals: Temp Pulse Resp BP Pulse Ox 98.3 F 61 14 143/72 96 05/24/16 05:06 05/24/16 06:00 05/24/16 06:00 05/24/16 06:00 05/24/16 06:00 General appearance: Present: no acute distress, well-nourished - EENT Eyes: Present: PERRL, EOM intact - Neck Neck: Present: supple, normal ROM - Respiratory Respiratory effort: normal Respiratory: bilateral: diminished, negative: rales, rhonchi, wheezing - Cardiovascular Rhythm: regular Heart Sounds: Present: S1 & S2 - Extremities Extremities: no ischemia, pulses intact, pulses symmetrical Peripheral Pulses: within normal limits - Abdominal General gastrointestinal: soft, non-tender, non-distended, normal bowel sounds - Integumentary Integumentary: Present: clear, warm - Psychiatric Psychiatric: appropriate mood/affect, cooperative - Neurologic Neurologic: CNII-XII intact, moves all extremities Results - Labs CBC & Chem 7: 05/24/16 03:58 05/24/16 03:58 Labs: Laboratory Last Values WBC 11.4 K/mm3 (4.5-11.0) H 05/24/16 03:58 RBC 5.09 M/mm3 (3.65-5.03) H 05/24/16 03:58 Hgb 15.1 gm/dl (11.8-15.2) 05/24/16 03:58 Hct 47.6 % (35.5-45.6) H 05/24/16 03:58 MCV 94 fl (84-94) 05/24/16 03:58 MCH 30 pg (28-32) 05/24/16 03:58 MCHC 32 % (32-34) 05/24/16 03:58 RDW 15.9 % (13.2-15.2) H 05/24/16 03:58 Plt Count 163 K/mm3 (140-440) 05/24/16 03:58 Lymph % (Auto) 19.9 % (13.4-35.0) 05/24/16 03:58 [place] % (Auto) 7.9 % (0.0-7.3) H 05/24/16 03:58 Eos % (Auto) 2.8 % (0.0-4.3) 05/24/16 03:58 Baso % (Auto) 0.3 % (0.0-1.8) 05/24/16 03:58 Lymph # 2.3 K/mm3 (1.2-5.4) 05/24/16 03:58 [place] # 0.9 K/mm3 (0.0-0.8) H 05/24/16 03:58 Eos # 0.3 K/mm3 (0.0-0.4) 05/24/16 03:58 Baso # 0.0 K/mm3 (0.0-0.1) 05/24/16 03:58 Add Manual Diff Complete 05/20/16 23:13 Total Counted 100 05/20/16 23:13 Seg Neutrophils % 69.1 % (40.0-70.0) 05/24/16 03:58 Seg Neuts % (Manual) 65.0 % (40.0-70.0) 05/20/16 23:13 Band Neutrophils % 3.0 % 05/20/16 23:13 Lymphocytes % (Manual) 27.0 % (13.4-35.0) 05/20/16 23:13 Reactive Lymphs % (Man) 0 % 05/20/16 23:13 Monocytes % (Manual) 5.0 % (0.0-7.3) 05/20/16 23:13 Eosinophils % (Manual) 0 % (0.0-4.3) 05/20/16 23:13 Basophils % (Manual) 0 % (0.0-1.8) 05/20/16 23:13 Metamyelocytes % 0 % 05/20/16 23:13 Myelocytes % 0 % 05/20/16 23:13 Promyelocytes % 0 % 05/20/16 23:13 Blast Cells % 0 % 05/20/16 23:13 Nucleated RBC % Not Reportable 05/20/16 23:13 Seg Neutrophils # 7.9 K/mm3 (1.8-7.7) H 05/24/16 03:58 Seg Neutrophils # Man 10.7 K/mm3 (1.8-7.7) H 05/20/16 23:13 Band Neutrophils # 0.5 K/mm3 05/20/16 23:13 Lymphocytes # (Manual) 4.5 K/mm3 (1.2-5.4) 05/20/16 23:13 Abs React Lymphs (Man) 0.0 K/mm3 05/20/16 23:13 Monocytes # (Manual) 0.8 K/mm3 (0.0-0.8) 05/20/16 23:13 Eosinophils # (Manual) 0.0 K/mm3 (0.0-0.4) 05/20/16 23:13 Basophils # (Manual) 0.0 K/mm3 (0.0-0.1) 05/20/16 23:13 Metamyelocytes # 0.0 K/mm3 05/20/16 23:13 Myelocytes # 0.0 K/mm3 05/20/16 23:13 Promyelocytes # 0.0 K/mm3 05/20/16 23:13 Blast Cells # 0.0 K/mm3 05/20/16 23:13 WBC Morphology Not Reportable 05/20/16 23:13 Hypersegmented Neuts Not Reportable 05/20/16 23:13 Hyposegmented Neuts Not Reportable 05/20/16 23:13 Hypogranular Neuts Not Reportable 05/20/16 23:13 Smudge Cells Not Reportable 05/20/16 23:13 Toxic Granulation Not Reportable 05/20/16 23:13 Toxic Vacuolation Not Reportable 05/20/16 23:13 Dohle Bodies Not Reportable 05/20/16 23:13 Pelger-Huet Anomaly Not Reportable 05/20/16 23:13 Amber Rods Not Reportable 05/20/16 23:13 Platelet Estimate Appears normal 05/20/16 23:13 Clumped Platelets Not Reportable 05/20/16 23:13 Plt Clumps, EDTA Not Reportable 05/20/16 23:13 Large Platelets Not Reportable 05/20/16 23:13 Giant Platelets Not Reportable 05/20/16 23:13 Platelet Satelliting Not Reportable 05/20/16 23:13 Plt Morphology Comment Not Reportable 05/20/16 23:13 RBC Morphology Not Reportable 05/20/16 23:13 Dimorphic RBCs Not Reportable 05/20/16 23:13 Polychromasia Not Reportable 05/20/16 23:13 Hypochromasia Not Reportable 05/20/16 23:13 Poikilocytosis Not Reportable 05/20/16 23:13 Anisocytosis 1+ 05/20/16 23:13 Microcytosis Not Reportable 05/20/16 23:13 Macrocytosis Not Reportable 05/20/16 23:13 Spherocytes Not Reportable 05/20/16 23:13 Pappenheimer Bodies Not Reportable 05/20/16 23:13 Sickle Cells Not Reportable 05/20/16 23:13 Target Cells Not Reportable 05/20/16 23:13 Tear Drop Cells Not Reportable 05/20/16 23:13 Ovalocytes Not Reportable 05/20/16 23:13 Helmet Cells Not Reportable 05/20/16 23:13 Mg-[place] Bodies Not Reportable 05/20/16 23:13 [place] Rings Not Reportable 05/20/16 23:13 Thaddeus Cells Not Reportable 05/20/16 23:13 Bite Cells Not Reportable 05/20/16 23:13 Crenated Cell Not Reportable 05/20/16 23:13 Elliptocytes Not Reportable 05/20/16 23:13 Acanthocytes (Spur) Not Reportable 05/20/16 23:13 Rouleaux Not Reportable 05/20/16 23:13 Hemoglobin C Crystals Not Reportable 05/20/16 23:13 Schistocytes Not Reportable 05/20/16 23:13 Malaria parasites Not Reportable 05/20/16 23:13 Will Bodies Not Reportable 05/20/16 23:13 Hem Pathologist Commnt No 05/20/16 23:13 PT 14.8 Sec. (12.2-14.9) 05/24/16 03:58 INR 1.17 (0.87-1.13) H 05/24/16 03:58 APTT 23.3 Sec. (24.2-36.6) L 05/24/16 03:58 Sodium 135 mmol/L (137-145) L 05/24/16 03:58 Potassium 4.8 mmol/L (3.6-5.0) 05/24/16 03:58 Chloride 101.5 mmol/L (98-107) 05/24/16 03:58 Carbon Dioxide 23 mmol/L (22-30) 05/24/16 03:58 Anion Gap 15 mmol/L 05/24/16 03:58 BUN 13 mg/dL (9-20) 05/24/16 03:58 Creatinine 0.8 mg/dL (0.8-1.5) 05/24/16 03:58 Estimated GFR > 60 ml/min 05/24/16 03:58 BUN/Creatinine Ratio 16.25 % 05/24/16 03:58 Glucose 101 mg/dL (75-100) H 05/24/16 03:58 POC Glucose 101 (70-105) 05/24/16 05:54 Lactic Acid 2.7 mmol/L (0.7-2.0) H* 05/21/16 15:59 Calcium 8.6 mg/dL (8.4-10.2) 05/24/16 03:58 Phosphorus 3.7 mg/dL (2.5-4.5) 05/22/16 04:33 Magnesium 2.3 mg/dL (1.7-2.3) 05/24/16 03:58 Total Bilirubin 0.7 mg/dL (0.1-1.2) 05/24/16 03:58 Direct Bilirubin 0.2 mg/dL (0-0.2) 05/24/16 03:58 Indirect Bilirubin 0.5 mg/dL 05/24/16 03:58 AST 26 units/L (5-40) 05/24/16 03:58 ALT 100 units/L (7-56) H 05/24/16 03:58 Alkaline Phosphatase 70 units/L (35-129) 05/24/16 03:58 Total Creatine Kinase 112 units/L (55-170) 05/21/16 20:00 CK-MB (CK-2) 4.2 ng/mL (0.0-4.0) H 05/21/16 13:01 CK-MB (CK-2) Rel Index 3.3 (0-4) 05/21/16 20:00 Troponin T 0.041 ng/mL (0.00-0.029) H 05/21/16 20:00 C-Reactive Protein 1.20 mg/dL (0.00-1.30) 05/21/16 15:21 NT-Pro-B Natriuret Pep 2732 pg/mL (0-900) H 05/20/16 23:13 Total Protein 5.5 g/dL (6.3-8.2) L 05/24/16 03:58 Albumin 2.8 g/dL (3.9-5) L 05/24/16 03:58 Albumin/Globulin Ratio 1.0 % 05/24/16 03:58 Triglycerides 71 mg/dL (2-149) 05/21/16 13:01 Cholesterol 157 mg/dL (50-199) 05/21/16 13:01 LDL Cholesterol Direct 75 mg/dL (50-130) 05/21/16 13:01 HDL Cholesterol 68 mg/dL (40-59) H 05/21/16 13:01 Cholesterol/HDL Ratio 2.30 % 05/21/16 13:01 Amylase 79 units/L (27-131) 05/23/16 03:27 Lipase 36 units/L (13-60) 05/20/16 23:13 TSH 3.890 mlU/mL (0.270-4.200) 05/21/16 10:51 Urine Color Straw (Yellow) 05/20/16 23:18 Urine Turbidity Clear (Clear) 05/20/16 23:18 Urine pH 6.0 (5.0-7.0) 05/20/16 23:18 Ur Specific [place] 1.003 (1.003-1.030) 05/20/16 23:18 Urine Protein <15 mg/dl mg/dL (Negative) 05/20/16 23:18 Urine Glucose (UA) Neg mg/dL (Negative) 04/06/17 23:18 Urine Ketones Neg mg/dL (Negative) 05/20/16 23:18 Urine Blood Sm (Negative) 05/20/16 23:18 Urine Nitrite Neg (Negative) 05/20/16 23:18 Urine Bilirubin Neg (Negative) 05/20/16 23:18 Urine Urobilinogen < 2.0 mg/dL (<2.0) 05/20/16 23:18 Ur Leukocyte Esterase Neg (Negative) 05/20/16 23:18 Urine WBC (Auto) < 1.0 /HPF (0.0-6.0) 05/20/16 23:18 Urine RBC (Auto) < 1.0 /HPF (0.0-6.0) 05/20/16 23:18 U Epithel Cells (Auto) < 1.0 /HPF (0-13.0) 05/20/16 23:18 Urine Mucus Few /HPF 05/20/16 23:18
[2016-05-24] MEDS: BROVANA NEBU IH SCH ×2 (08:29→21:39)
[2016-05-24] MEDS: DUONEB 0.5 MG-3 MG/3 ML SOLN IH SCH ×3 (08:29→21:39)
[2016-05-24] MEDS: PULMICORT IH SCH ×2 (08:29→21:39)
[2016-05-24] MEDS ORDERED: NORCO 5/325 PO PRN (08:32)
--- NOTE | 2016-05-24 08:32 | Event Note ---
Date: 05/24/16 Patient underwent permanent pacemaker implant without apparent complications. Temporary trans-venous pacemaker and femoral venous sheath were removed. See procedure note in paper chart for further details. Recommend: 1. OK to proceed with any needed GI or surgical evaluation or treatment. If possible, his left arm should not be lifted above shoulder level. 2. Hold heparin/lovenox for 48 hours. 3. At time of discharge prescribe short course of antibiotics (keflex 500 tid x days) and pain medication. [place] Darnell MD
[2016-05-24] MEDS: LEVAQUIN PO SCH (12:00)
[2016-05-24] MEDS: PROTONIX PO SCH (12:00)
[2016-05-24] MEDS: ANCEF/NS 1 GM/50 ML 1 GM/50 ML BAG IV SCH (12:00)
--- NOTE | 2016-05-24 13:08 | Progress Note ---
Assessment and Plan - Patient Problems (1) Bradycardia Current Visit: Yes Status: Acute Plan to address problem: Permanent pace maker placement this morning. Monitor in ICU for a few hours, then can transfer to telemetry (2) COPD with acute exacerbation Current Visit: Yes Status: Acute Plan to address problem: Continue bronchodilators and nebulized steroids. Out patient pulmonary follow up to evaluate pulmonary physiology and optimize therapies (3) Sleep disorder breathing Current Visit: Yes Status: Acute Plan to address problem: Continue with CPAP at night. explained the pathophysiology of sleep apnea and the need for PAP. Will adjust the pressures to allow for compliance with the machine. To follow up as an outpatient for home sleep study to document sleep apnea. Subjective Date of service: 05/24/16 Principal diagnosis: Symptomatic Bradycardia Interval history: No acute overnight events. FVitals, labs, medications and chart reviewed. s/p permanent pacemaker placement. Family at the bedside. He wants to know if he has to use the "machine" at night. Denies any chest pain, no shortness of breath, no fevers or chills. No dizziness. Objective Vital Signs - 12hr 05/24/16 05/24/16 05/24/16 01:10 01:20 01:30 Temperature Pulse Rate 61 61 61 Pulse Rate [ From Monitor] Respiratory 11 L 12 13 Rate Blood Pressure 125/62 125/62 123/65 O2 Sat by Pulse 96 98 96 Oximetry 05/24/16 05/24/16 05/24/16 01:38 01:40 01:50 Temperature 98.1 F Pulse Rate 61 61 Pulse Rate [ From Monitor] Respiratory 10 L 14 Rate Blood Pressure 123/65 123/65 O2 Sat by Pulse 97 97 Oximetry 05/24/16 05/24/16 05/24/16 02:00 02:10 02:20 Temperature Pulse Rate 61 61 61 Pulse Rate [ From Monitor] Respiratory 14 16 12 Rate Blood Pressure 119/66 119/66 119/66 O2 Sat by Pulse 94 94 98 Oximetry 05/24/16 05/24/16 05/24/16 02:30 02:40 02:46 Temperature Pulse Rate 61 61 Pulse Rate [ 61 From Monitor] Respiratory 12 14 16 Rate Blood Pressure 125/64 125/64 O2 Sat by Pulse 98 97 97 Oximetry 05/24/16 05/24/16 05/24/16 02:50 02:54 03:00 Temperature Pulse Rate 61 61 61 Pulse Rate [ From Monitor] Respiratory 14 14 Rate Blood Pressure 125/64 123/92 O2 Sat by Pulse 97 98 Oximetry 05/24/16 05/24/16 05/24/16 03:10 03:20 03:30 Temperature Pulse Rate 61 61 61 Pulse Rate [ From Monitor] Respiratory 15 12 13 Rate Blood Pressure 123/92 123/92 131/78 O2 Sat by Pulse 95 98 97 Oximetry 05/24/16 05/24/16 05/24/16 03:40 03:50 04:00 Temperature Pulse Rate 61 61 61 Pulse Rate [ From Monitor] Respiratory 14 17 15 Rate Blood Pressure 131/78 131/78 131/78 O2 Sat by Pulse 97 95 95 Oximetry 05/24/16 05/24/16 05/24/16 04:10 04:20 04:30 Temperature Pulse Rate 61 61 61 Pulse Rate [ From Monitor] Respiratory 15 16 14 Rate Blood Pressure 131/78 131/78 134/80 O2 Sat by Pulse 97 98 95 Oximetry 05/24/16 05/24/16 05/24/16 04:40 04:50 05:00 Temperature Pulse Rate 61 61 61 Pulse Rate [ From Monitor] Respiratory 13 15 14 Rate Blood Pressure 134/80 134/80 137/73 O2 Sat by Pulse 97 97 96 Oximetry 05/24/16 05/24/16 05/24/16 05:06 05:10 05:20 Temperature 98.3 F Pulse Rate 61 61 Pulse Rate [ From Monitor] Respiratory 14 15 Rate Blood Pressure 137/73 137/73 O2 Sat by Pulse 97 96 Oximetry 05/24/16 05/24/16 05/24/16 05:30 05:40 05:50 Temperature Pulse Rate 61 61 61 Pulse Rate [ From Monitor] Respiratory 16 18 18 Rate Blood Pressure 149/75 149/75 149/75 O2 Sat by Pulse 95 95 95 Oximetry 05/24/16 05/24/16 05/24/16 06:00 06:10 08:00 Temperature 98.1 F Pulse Rate 61 61 Pulse Rate [ From Monitor] Respiratory 14 13 Rate Blood Pressure 143/72 143/72 O2 Sat by Pulse 96 96 Oximetry 05/24/16 05/24/16 05/24/16 09:00 09:37 12:00 Temperature 97.5 F L Pulse Rate 88 Pulse Rate [ From Monitor] Respiratory 12 Rate Blood Pressure 131/84 O2 Sat by Pulse 90 95 Oximetry Constitutional: no acute distress, alert Eyes: non-icteric ENT: oropharynx moist Neck: supple, no lymphadenopathy Effort: normal Ascultation: Bilateral: clear, diminished breath sounds Cardiovascular: regular rate and rhythm, other (left chest wall device, arm in sling) Gastrointestinal: normoactive bowel sounds, soft, non-tender, non-distended Integumentary: normal Extremities: no cyanosis, no edema, pink and warm, pulses normal, no ischemia or petechiae, edema (1++) Neurologic: normal mental status, non-focal exam, pupils equal and round, motor strength normal and Psychiatric: mood appropriate, affect normal CBC and BMP: 05/24/16 03:58 05/24/16 03:58 ABG, PT/INR, D-dimer: PT/INR, D-dimer PT 14.8 Sec. (12.2-14.9) 05/24/16 03:58 INR 1.17 (0.87-1.13) H 05/24/16 03:58 Abnormal lab findings: Abnormal Labs 05/21/16 05/21/16 05/21/16 13:01 15:59 20:00 WBC RBC Hct RDW Lymph % (Auto) [place] % (Auto) [place] # Seg Neutrophils % Seg Neutrophils # INR APTT Sodium Carbon Dioxide Glucose POC Glucose Lactic Acid 2.7 H* Direct Bilirubin AST ALT CK-MB (CK-2) 4.2 H Troponin T 0.035 H D 0.041 H Total Protein Albumin HDL Cholesterol 68 H 05/22/16 05/22/16 05/22/16 04:33 04:33 13:56 WBC 16.1 H RBC Hct RDW 16.1 H Lymph % (Auto) 12.2 L [place] % (Auto) [place] # 1.1 H Seg Neutrophils % 80.0 H Seg Neutrophils # 12.9 H INR APTT Sodium Carbon Dioxide 20 L Glucose POC Glucose 108 H Lactic Acid Direct Bilirubin 0.3 H AST 52 H ALT 203 H CK-MB (CK-2) Troponin T Total Protein 5.8 L Albumin 3.2 L HDL Cholesterol 05/22/16 05/23/16 05/23/16 17:45 01:49 03:27 WBC 12.8 H RBC Hct 45.7 H RDW 15.6 H Lymph % (Auto) [place] % (Auto) [place] # 0.9 H Seg Neutrophils % 72.1 H Seg Neutrophils # 9.3 H INR APTT Sodium Carbon Dioxide Glucose POC Glucose 139 H 107 H Lactic Acid Direct Bilirubin AST ALT CK-MB (CK-2) Troponin T Total Protein Albumin HDL Cholesterol 05/23/16 05/23/16 05/23/16 03:27 10:11 14:27 WBC RBC Hct RDW Lymph % (Auto) [place] % (Auto) [place] # Seg Neutrophils % Seg Neutrophils # INR APTT Sodium Carbon Dioxide Glucose 103 H POC Glucose 118 H 122 H Lactic Acid Direct Bilirubin 0.3 H AST ALT 143 H CK-MB (CK-2) Troponin T Total Protein 5.6 L Albumin 3.1 L HDL Cholesterol 05/23/16 05/24/16 05/24/16 17:54 03:58 03:58 WBC 11.4 H RBC 5.09 H Hct 47.6 H RDW 15.9 H Lymph % (Auto) [place] % (Auto) 7.9 H [place] # 0.9 H Seg Neutrophils % Seg Neutrophils # 7.9 H INR 1.17 H APTT 23.3 L Sodium Carbon Dioxide Glucose POC Glucose 134 H Lactic Acid Direct Bilirubin AST ALT CK-MB (CK-2) Troponin T Total Protein Albumin HDL Cholesterol 05/24/16 03:58 WBC RBC Hct RDW Lymph % (Auto) [place] % (Auto) [place] # Seg Neutrophils % Seg Neutrophils # INR APTT Sodium 135 L Carbon Dioxide Glucose 101 H POC Glucose Lactic Acid Direct Bilirubin AST ALT 100 H CK-MB (CK-2) Troponin T Total Protein 5.5 L Albumin 2.8 L HDL Cholesterol Chest x-ray: report reviewed Allied health notes reviewed: RT
[2016-05-24] MEDS ORDERED: CEPHULAC PO ONE (20:47)
[2016-05-25 04:36] LABS: Basophils % (Auto) 0.3 % (0.0-1.8); Eosinophils % (Auto) 1.8 % (0.0-4.3); Hemoglobin 13.9 gm/dl (11.8-15.2); Mean Corpuscular HGB Conc 32 % (32-34); Mean Corpuscular Hemoglobin 30 pg (28-32); Mean Corpuscular Volume 93 fl (84-94); Platelet Count 165 K/mm3 (140-440); Red Blood Count 4.61 M/mm3 (3.65-5.03); Red Cell Distribution Width 15.3 % (13.2-15.2); White Blood Count 10.5 K/mm3 (4.5-11.0)
[2016-05-25 05:04] LABS: Alanine Aminotransferase 69 units/L (7-56); Albumin 2.9 g/dL (3.9-5); Albumin/Globulin Ratio 1.1 %; Alkaline Phosphatase 72 units/L (35-129); Anion Gap 19 mmol/L; Bilirubin,Direct 0.2 mg/dL (0-0.2); Bilirubin,Indirect 0.4 mg/dL; Bilirubin,Total 0.6 mg/dL (0.1-1.2); Blood Urea Nitrogen 24 mg/dL (9-20); Calcium 8.3 mg/dL (8.4-10.2); Carbon Dioxide 21 mmol/L (22-30); Chloride 103.8 mmol/L (98-107); Glucose 121 mg/dL (75-100); Magnesium 2.1 mg/dL (1.7-2.3); Potassium 4.6 mmol/L (3.6-5.0); Sodium 139 mmol/L (137-145); Total Protein 5.5 g/dL (6.3-8.2)
[2016-05-25] MEDS: BROVANA NEBU IH SCH ×2 (07:09→19:39)
[2016-05-25] MEDS: DUONEB 0.5 MG-3 MG/3 ML SOLN IH SCH ×3 (07:09→20:56)
[2016-05-25] MEDS: PULMICORT IH SCH ×2 (07:09→19:39)
--- NOTE | 2016-05-25 09:57 | Progress Note ---
Assessment and Plan Assessment and plan: Severe bradycardia, status post permanent pacemaker placed yesterday 05/24/16. Patient is doing better. May transfer to telemetry today. Continue supportive care. Moderate protein calorie malnutrition. Nutrition supplements and supportive care Abdominal pain/constipation. Secondary to cholelithiasis and gallbladder sludge. HIDA scan done today shows on abnormality. I discussed with Dr. Villaseñor , surgeon and he recommends GI evaluation. Levaquin IV. Possible cholecystitis. Levaquin Elevated function test. Closely monitor liver function. Consult GI Leukocytosis. No resolved. WBC 10.5 today. Glaucoma. resume meds DVT prophylaxis with Lovenox Full CODE STATUS History Interval history: Pacemaker placement yesterday, feels better, No chest pain, No shortness of breath Hospitalist Physical - Physical exam Narrative exam: Gen: Not in acute distress HEENT: Normocephalic, atraumatic Neck: supple, no JVD Lungs: Clear to auscultation bilaterally, no crackles or wheeze Heart S1-S2 regular, no murmurs rubs or gallop, surgical wound left upper chest wall at pacemaker insertion site Abdomen: soft, non tender,non-distended, normal bowel sounds Ext: No edema, cyanosis or clubbing, left arm in splint Neuro: Awake alert oriented 3, no focal neurologic signs - Constitutional Vitals: Temp Pulse Resp BP Pulse Ox 97.9 F 71 17 146/71 97 05/25/16 09:00 05/25/16 08:20 05/25/16 08:20 05/25/16 08:20 05/25/16 08:20 Results - Labs CBC & Chem 7: 05/25/16 04:06 05/25/16 04:06 Labs: Laboratory Last Values WBC 10.5 K/mm3 (4.5-11.0) 05/25/16 04:06 RBC 4.61 M/mm3 (3.65-5.03) 05/25/16 04:06 Hgb 13.9 gm/dl (11.8-15.2) 05/25/16 04:06 Hct 43.0 % (35.5-45.6) 05/25/16 04:06 MCV 93 fl (84-94) 05/25/16 04:06 MCH 30 pg (28-32) 05/25/16 04:06 MCHC 32 % (32-34) 05/25/16 04:06 RDW 15.3 % (13.2-15.2) H 05/25/16 04:06 Plt Count 165 K/mm3 (140-440) 05/25/16 04:06 Lymph % (Auto) 14.2 % (13.4-35.0) 05/25/16 04:06 [place] % (Auto) 8.7 % (0.0-7.3) H 05/25/16 04:06 Eos % (Auto) 1.8 % (0.0-4.3) 05/25/16 04:06 Baso % (Auto) 0.3 % (0.0-1.8) 05/25/16 04:06 Lymph # 1.5 K/mm3 (1.2-5.4) 05/25/16 04:06 [place] # 0.9 K/mm3 (0.0-0.8) H 05/25/16 04:06 Eos # 0.2 K/mm3 (0.0-0.4) 05/25/16 04:06 Baso # 0.0 K/mm3 (0.0-0.1) 05/25/16 04:06 Add Manual Diff Complete 05/20/16 23:13 Total Counted 100 05/20/16 23:13 Seg Neutrophils % 75.0 % (40.0-70.0) H 05/25/16 04:06 Seg Neuts % (Manual) 65.0 % (40.0-70.0) 05/20/16 23:13 Band Neutrophils % 3.0 % 05/20/16 23:13 Lymphocytes % (Manual) 27.0 % (13.4-35.0) 05/20/16 23:13 Reactive Lymphs % (Man) 0 % 05/20/16 23:13 Monocytes % (Manual) 5.0 % (0.0-7.3) 05/20/16 23:13 Eosinophils % (Manual) 0 % (0.0-4.3) 05/20/16 23:13 Basophils % (Manual) 0 % (0.0-1.8) 05/20/16 23:13 Metamyelocytes % 0 % 05/20/16 23:13 Myelocytes % 0 % 05/20/16 23:13 Promyelocytes % 0 % 05/20/16 23:13 Blast Cells % 0 % 05/20/16 23:13 Nucleated RBC % Not Reportable 05/20/16 23:13 Seg Neutrophils # 7.9 K/mm3 (1.8-7.7) H 05/25/16 04:06 Seg Neutrophils # Man 10.7 K/mm3 (1.8-7.7) H 05/20/16 23:13 Band Neutrophils # 0.5 K/mm3 05/20/16 23:13 Lymphocytes # (Manual) 4.5 K/mm3 (1.2-5.4) 05/20/16 23:13 Abs React Lymphs (Man) 0.0 K/mm3 05/20/16 23:13 Monocytes # (Manual) 0.8 K/mm3 (0.0-0.8) 05/20/16 23:13 Eosinophils # (Manual) 0.0 K/mm3 (0.0-0.4) 05/20/16 23:13 Basophils # (Manual) 0.0 K/mm3 (0.0-0.1) 05/20/16 23:13 Metamyelocytes # 0.0 K/mm3 05/20/16 23:13 Myelocytes # 0.0 K/mm3 05/20/16 23:13 Promyelocytes # 0.0 K/mm3 05/20/16 23:13 Blast Cells # 0.0 K/mm3 05/20/16 23:13 WBC Morphology Not Reportable 05/20/16 23:13 Hypersegmented Neuts Not Reportable 05/20/16 23:13 Hyposegmented Neuts Not Reportable 05/20/16 23:13 Hypogranular Neuts Not Reportable 05/20/16 23:13 Smudge Cells Not Reportable 05/20/16 23:13 Toxic Granulation Not Reportable 05/20/16 23:13 Toxic Vacuolation Not Reportable 05/20/16 23:13 Dohle Bodies Not Reportable 05/20/16 23:13 Pelger-Huet Anomaly Not Reportable 05/20/16 23:13 Amber Rods Not Reportable 05/20/16 23:13 Platelet Estimate Appears normal 05/20/16 23:13 Clumped Platelets Not Reportable 05/20/16 23:13 Plt Clumps, EDTA Not Reportable 05/20/16 23:13 Large Platelets Not Reportable 05/20/16 23:13 Giant Platelets Not Reportable 05/20/16 23:13 Platelet Satelliting Not Reportable 05/20/16 23:13 Plt Morphology Comment Not Reportable 05/20/16 23:13 RBC Morphology Not Reportable 05/20/16 23:13 Dimorphic RBCs Not Reportable 05/20/16 23:13 Polychromasia Not Reportable 05/20/16 23:13 Hypochromasia Not Reportable 05/20/16 23:13 Poikilocytosis Not Reportable 05/20/16 23:13 Anisocytosis 1+ 05/20/16 23:13 Microcytosis Not Reportable 05/20/16 23:13 Macrocytosis Not Reportable 05/20/16 23:13 Spherocytes Not Reportable 05/20/16 23:13 Pappenheimer Bodies Not Reportable 05/20/16 23:13 Sickle Cells Not Reportable 05/20/16 23:13 Target Cells Not Reportable 05/20/16 23:13 Tear Drop Cells Not Reportable 05/20/16 23:13 Ovalocytes Not Reportable 05/20/16 23:13 Helmet Cells Not Reportable 05/20/16 23:13 Mg-[place] Bodies Not Reportable 05/20/16 23:13 [place] Rings Not Reportable 05/20/16 23:13 Thaddeus Cells Not Reportable 05/20/16 23:13 Bite Cells Not Reportable 05/20/16 23:13 Crenated Cell Not Reportable 05/20/16 23:13 Elliptocytes Not Reportable 05/20/16 23:13 Acanthocytes (Spur) Not Reportable 05/20/16 23:13 Rouleaux Not Reportable 05/20/16 23:13 Hemoglobin C Crystals Not Reportable 05/20/16 23:13 Schistocytes Not Reportable 05/20/16 23:13 Malaria parasites Not Reportable 05/20/16 23:13 Will Bodies Not Reportable 05/20/16 23:13 Hem Pathologist Commnt No 05/20/16 23:13 PT 14.8 Sec. (12.2-14.9) 05/24/16 03:58 INR 1.17 (0.87-1.13) H 05/24/16 03:58 APTT 23.3 Sec. (24.2-36.6) L 05/24/16 03:58 Sodium 139 mmol/L (137-145) 05/25/16 04:06 Potassium 4.6 mmol/L (3.6-5.0) 05/25/16 04:06 Chloride 103.8 mmol/L (98-107) 05/25/16 04:06 Carbon Dioxide 21 mmol/L (22-30) L 05/25/16 04:06 Anion Gap 19 mmol/L 05/25/16 04:06 BUN 24 mg/dL (9-20) H 05/25/16 04:06 Creatinine 0.8 mg/dL (0.8-1.5) 05/25/16 04:06 Estimated GFR > 60 ml/min 05/25/16 04:06 BUN/Creatinine Ratio 30.00 % 05/25/16 04:06 Glucose 121 mg/dL (75-100) H 05/25/16 04:06 POC Glucose 111 (70-105) H 05/25/16 05:43 Lactic Acid 2.7 mmol/L (0.7-2.0) H* 05/21/16 15:59 Calcium 8.3 mg/dL (8.4-10.2) L 05/25/16 04:06 Phosphorus 3.7 mg/dL (2.5-4.5) 05/22/16 04:33 Magnesium 2.1 mg/dL (1.7-2.3) 05/25/16 04:06 Total Bilirubin 0.6 mg/dL (0.1-1.2) 05/25/16 04:06 Direct Bilirubin 0.2 mg/dL (0-0.2) 05/25/16 04:06 Indirect Bilirubin 0.4 mg/dL 05/25/16 04:06 AST 34 units/L (5-40) 05/25/16 04:06 ALT 69 units/L (7-56) H 05/25/16 04:06 Alkaline Phosphatase 72 units/L (35-129) 05/25/16 04:06 Total Creatine Kinase 112 units/L (55-170) 05/21/16 20:00 CK-MB (CK-2) 4.2 ng/mL (0.0-4.0) H 05/21/16 13:01 CK-MB (CK-2) Rel Index 3.3 (0-4) 05/21/16 20:00 Troponin T 0.041 ng/mL (0.00-0.029) H 05/21/16 20:00 C-Reactive Protein 1.20 mg/dL (0.00-1.30) 05/21/16 15:21 NT-Pro-B Natriuret Pep 2732 pg/mL (0-900) H 05/20/16 23:13 Total Protein 5.5 g/dL (6.3-8.2) L 05/25/16 04:06 Albumin 2.9 g/dL (3.9-5) L 05/25/16 04:06 Albumin/Globulin Ratio 1.1 % 05/25/16 04:06 Triglycerides 71 mg/dL (2-149) 05/21/16 13:01 Cholesterol 157 mg/dL (50-199) 05/21/16 13:01 LDL Cholesterol Direct 75 mg/dL (50-130) 05/21/16 13:01 HDL Cholesterol 68 mg/dL (40-59) H 05/21/16 13:01 Cholesterol/HDL Ratio 2.30 % 05/21/16 13:01 Amylase 79 units/L (27-131) 05/23/16 03:27 Lipase 36 units/L (13-60) 05/20/16 23:13 TSH 3.890 mlU/mL (0.270-4.200) 05/21/16 10:51 Urine Color Straw (Yellow) 05/20/16 23:18 Urine Turbidity Clear (Clear) 05/20/16 23:18 Urine pH 6.0 (5.0-7.0) 05/20/16 23:18 Ur Specific [place] 1.003 (1.003-1.030) 05/20/16 23:18 Urine Protein <15 mg/dl mg/dL (Negative) 05/20/16 23:18 Urine Glucose (UA) Neg mg/dL (Negative) 05/20/16 23:18 Urine Ketones Neg mg/dL (Negative) 05/20/16 23:18 Urine Blood Sm (Negative) 05/20/16 23:18 Urine Nitrite Neg (Negative) 05/20/16 23:18 Urine Bilirubin Neg (Negative) 05/20/16 23:18 Urine Urobilinogen < 2.0 mg/dL (<2.0) 05/20/16 23:18 Ur Leukocyte Esterase Neg (Negative) 05/20/16 23:18 Urine WBC (Auto) < 1.0 /HPF (0.0-6.0) 05/20/16 23:18 Urine RBC (Auto) < 1.0 /HPF (0.0-6.0) 05/20/16 23:18 U Epithel Cells (Auto) < 1.0 /HPF (0-13.0) 05/20/16 23:18 Urine Mucus Few /HPF 05/20/16 23:18
--- NOTE | 2016-05-25 11:10 | Progress Note ---
Assessment and Plan Severe bradycardia s/p pacemaker implant normal TSH Abdominal pain/distension EF 55-60% on echocardiogram Recommendations: OK to proceed with any needed GI or surgical evaluation or treatment. If possible, his left arm should not be lifted above shoulder level. Hold heparin/lovenox for 48 hours post pacemaker implant. At time of discharge prescribe short course of antibiotics (keflex 500 tid x days) and pain medication. Subjective Date of service: 05/25/16 Principal diagnosis: Symptomatic Bradycardia Interval history: Patient has no cardiac complaints. Pacemaker site intact. Objective Vital Signs Temp Pulse Pulse Pulse Resp Resp BP 05/25/16 09:00 97.9 F 05/25/16 08:20 71 17 146/71 05/25/16 08:10 74 20 146/71 05/25/16 08:00 72 15 146/71 05/25/16 07:50 71 13 121/63 05/25/16 07:40 73 17 121/63 05/25/16 07:30 75 20 121/63 05/25/16 07:20 75 18 121/63 05/25/16 07:19 78 18 05/25/16 07:11 77 18 05/25/16 07:10 73 15 121/63 05/25/16 07:00 72 14 121/63 05/25/16 06:50 74 15 137/78 05/25/16 06:40 73 14 137/78 05/25/16 06:30 70 15 137/78 05/25/16 06:20 71 15 137/78 05/25/16 06:10 74 16 137/78 05/25/16 06:00 72 18 137/78 05/25/16 05:50 73 14 139/73 05/25/16 05:40 76 14 139/73 05/25/16 05:30 76 14 139/73 05/25/16 05:20 77 18 139/73 05/25/16 05:10 74 18 139/73 05/25/16 05:00 76 14 139/73 05/25/16 04:50 74 15 138/73 05/25/16 04:40 77 14 138/73 05/25/16 04:30 76 15 138/73 05/25/16 04:24 97.1 F L 05/25/16 04:20 80 16 138/73 05/25/16 04:10 79 14 138/73 05/25/16 04:00 83 71 14 138/73 05/25/16 03:50 83 15 131/77 05/25/16 03:40 81 15 131/77 05/25/16 03:30 82 17 131/77 05/25/16 03:20 79 15 131/77 05/25/16 03:10 81 15 131/77 05/25/16 03:00 83 15 131/77 05/25/16 02:50 82 11 L 143/99 05/25/16 02:40 99 H 15 143/99 05/25/16 02:30 82 16 143/99 05/25/16 02:20 84 15 143/99 05/25/16 02:10 81 16 143/99 05/25/16 02:00 79 15 143/99 05/25/16 01:50 83 19 141/113 05/25/16 01:40 85 20 141/113 05/25/16 01:30 80 15 141/113 05/25/16 01:20 82 14 141/113 05/25/16 01:10 81 16 141/113 05/25/16 01:00 88 18 141/113 05/25/16 00:50 91 H 21 140/95 05/25/16 00:40 84 18 140/95 05/25/16 00:30 84 17 140/95 05/25/16 00:20 92 H 13 140/95 05/25/16 00:10 85 21 140/95 05/25/16 00:00 84 85 19 140/95 05/24/16 23:50 83 20 148/87 05/24/16 23:40 86 21 148/87 05/24/16 23:30 87 20 148/87 05/24/16 23:20 83 20 148/87 05/24/16 23:10 88 20 148/87 05/24/16 23:00 87 15 148/87 05/24/16 22:50 87 21 150/66 05/24/16 22:40 85 20 150/66 05/24/16 22:30 83 20 150/66 05/24/16 22:20 88 20 150/66 05/24/16 22:10 83 21 150/66 05/24/16 22:00 84 18 150/66 05/24/16 21:50 79 15 164/76 05/24/16 21:40 80 13 164/76 05/24/16 21:36 05/24/16 21:35 81 18 05/24/16 21:30 81 10 L 164/76 05/24/16 21:20 84 16 164/76 05/24/16 21:15 79 20 05/24/16 21:10 82 22 164/76 05/24/16 21:04 86 16 171/87 05/24/16 21:00 80 18 171/87 05/24/16 20:50 86 15 156/82 05/24/16 20:40 98.3 F 87 21 151/88 05/24/16 20:30 82 17 151/88 05/24/16 20:20 82 18 156/82 05/24/16 20:10 84 19 156/82 05/24/16 20:00 82 83 15 148/73 05/24/16 19:50 81 13 148/73 05/24/16 19:40 82 15 148/73 05/24/16 19:30 79 15 148/73 05/24/16 19:20 83 19 137/78 05/24/16 19:10 81 16 137/78 05/24/16 19:00 93 H 17 137/78 05/24/16 18:50 98 H 19 120/45 05/24/16 18:40 94 H 18 120/45 05/24/16 18:30 118 H 25 H 133/75 05/24/16 18:20 82 19 133/75 05/24/16 18:10 84 16 133/75 05/24/16 18:00 98.3 F 118 H 21 133/75 05/24/16 17:50 87 17 137/76 05/24/16 17:40 86 20 137/76 05/24/16 17:30 83 21 137/76 05/24/16 17:20 80 21 139/73 05/24/16 17:10 82 17 139/73 05/24/16 17:00 85 19 139/73 05/24/16 16:50 81 22 130/68 05/24/16 16:40 73 19 130/68 05/24/16 16:30 71 12 130/68 05/24/16 16:20 75 15 126/70 05/24/16 16:10 70 11 L 126/70 05/24/16 16:00 98.3 F 118 H 15 126/70 05/24/16 15:50 76 16 136/72 05/24/16 15:40 71 15 136/72 05/24/16 15:30 74 19 136/72 05/24/16 15:20 72 14 140/68 05/24/16 15:10 75 14 140/68 05/24/16 15:00 72 15 140/68 05/24/16 14:50 79 14 141/66 05/24/16 14:48 78 15 05/24/16 14:40 76 13 141/66 05/24/16 14:39 78 16 05/24/16 14:30 75 14 141/66 05/24/16 14:20 77 16 141/75 05/24/16 14:10 77 18 141/75 05/24/16 14:00 79 18 141/75 05/24/16 13:50 68 14 137/74 05/24/16 13:40 69 16 137/74 05/24/16 13:30 76 17 123/72 05/24/16 13:20 78 17 137/74 05/24/16 13:10 80 17 137/74 05/24/16 13:00 85 20 137/74 05/24/16 12:50 80 19 142/79 05/24/16 12:40 81 19 142/79 05/24/16 12:30 86 18 142/79 05/24/16 12:20 81 22 149/84 05/24/16 12:10 81 19 149/84 05/24/16 12:00 97.5 F L 83 21 149/84 05/24/16 11:50 76 18 140/74 05/24/16 11:40 76 15 140/74 05/24/16 11:30 76 18 140/74 05/24/16 11:20 78 20 123/75 05/24/16 11:10 76 19 123/75 Pulse Ox 05/25/16 09:00 05/25/16 08:20 97 05/25/16 08:10 97 05/25/16 08:00 95 05/25/16 07:50 97 05/25/16 07:40 96 05/25/16 07:30 95 05/25/16 07:20 97 05/25/16 07:19 05/25/16 07:11 96 05/25/16 07:10 98 05/25/16 07:00 96 05/25/16 06:50 97 05/25/16 06:40 96 05/25/16 06:30 97 05/25/16 06:20 98 05/25/16 06:10 97 05/25/16 06:00 98 05/25/16 05:50 97 05/25/16 05:40 98 05/25/16 05:30 98 05/25/16 05:20 97 05/25/16 05:10 97 05/25/16 05:00 92 05/25/16 04:50 99 05/25/16 04:40 97 05/25/16 04:30 98 05/25/16 04:24 05/25/16 04:20 97 05/25/16 04:10 97 05/25/16 04:00 96 05/25/16 03:50 90 05/25/16 03:40 92 05/25/16 03:30 91 05/25/16 03:20 92 05/25/16 03:10 91 05/25/16 03:00 91 05/25/16 02:50 94 05/25/16 02:40 98 05/25/16 02:30 97 05/25/16 02:20 98 05/25/16 02:10 96 05/25/16 02:00 97 05/25/16 01:50 97 05/25/16 01:40 97 05/25/16 01:30 97 05/25/16 01:20 99 05/25/16 01:10 96 05/25/16 01:00 95 05/25/16 00:50 89 05/25/16 00:40 92 05/25/16 00:30 91 05/25/16 00:20 90 05/25/16 00:10 95 05/25/16 00:00 92 05/24/16 23:50 91 05/24/16 23:40 92 05/24/16 23:30 92 05/24/16 23:20 96 05/24/16 23:10 96 05/24/16 23:00 95 05/24/16 22:50 97 05/24/16 22:40 97 05/24/16 22:30 96 05/24/16 22:20 94 05/24/16 22:10 95 05/24/16 22:00 95 05/24/16 21:50 97 05/24/16 21:40 97 05/24/16 21:36 97 05/24/16 21:35 05/24/16 21:30 97 05/24/16 21:20 98 05/24/16 21:15 05/24/16 21:10 96 05/24/16 21:04 97 05/24/16 21:00 96 05/24/16 20:50 96 05/24/16 20:40 95 05/24/16 20:30 95 05/24/16 20:20 96 05/24/16 20:10 97 05/24/16 20:00 97 05/24/16 19:50 95 05/24/16 19:40 97 05/24/16 19:30 97 05/24/16 19:20 98 05/24/16 19:10 96 05/24/16 19:00 96 05/24/16 18:50 97 05/24/16 18:40 95 05/24/16 18:30 91 05/24/16 18:20 96 05/24/16 18:10 96 05/24/16 18:00 96 05/24/16 17:50 96 05/24/16 17:40 96 05/24/16 17:30 95 05/24/16 17:20 96 05/24/16 17:10 95 05/24/16 17:00 05/24/16 16:50 96 05/24/16 16:40 97 05/24/16 16:30 97 05/24/16 16:20 96 05/24/16 16:10 97 05/24/16 16:00 97 05/24/16 15:50 96 05/24/16 15:40 97 05/24/16 15:30 96 05/24/16 15:20 97 05/24/16 15:10 95 05/24/16 15:00 97 05/24/16 14:50 98 05/24/16 14:48 05/24/16 14:40 98 05/24/16 14:39 05/24/16 14:30 97 05/24/16 14:20 96 05/24/16 14:10 97 05/24/16 14:00 95 05/24/16 13:50 96 05/24/16 13:40 96 05/24/16 13:30 94 05/24/16 13:20 95 05/24/16 13:10 95 05/24/16 13:00 94 05/24/16 12:50 95 05/24/16 12:40 97 05/24/16 12:30 95 05/24/16 12:20 96 05/24/16 12:10 96 05/24/16 12:00 94 05/24/16 11:50 97 05/24/16 11:40 97 05/24/16 11:30 96 05/24/16 11:20 98 05/24/16 11:10 98 - Physical Examination General: No Apparent Distress HEENT: Positive: PERRL Neck: Positive: trachea midline Cardiac: Positive: Other (paced) Neuro: Positive: Grossly Intact Extremities: Absent: edema - Labs and Meds Cardiac Enzymes 05/25/16 Range/Units 04:06 AST 34 (5-40) units/L CBC 05/25/16 Range/Units 04:06 WBC 10.5 (4.5-11.0) K/mm3 RBC 4.61 (3.65-5.03) M/mm3 Hgb 13.9 (11.8-15.2) gm/dl Hct 43.0 (35.5-45.6) % Plt Count 165 (140-440) K/mm3 Lymph # 1.5 (1.2-5.4) K/mm3 [place] # 0.9 H (0.0-0.8) K/mm3 Eos # 0.2 (0.0-0.4) K/mm3 Baso # 0.0 (0.0-0.1) K/mm3 Comprehensive Metabolic Panel 05/25/16 Range/Units 04:06 Sodium 139 (137-145) mmol/L Potassium 4.6 (3.6-5.0) mmol/L Chloride 103.8 (98-107) mmol/L Carbon Dioxide 21 L (22-30) mmol/L BUN 24 H (9-20) mg/dL Creatinine 0.8 (0.8-1.5) mg/dL Glucose 121 H (75-100) mg/dL Calcium 8.3 L (8.4-10.2) mg/dL Direct Bilirubin 0.2 (0-0.2) mg/dL Indirect Bilirubin 0.4 mg/dL AST 34 (5-40) units/L ALT 69 H (7-56) units/L Alkaline Phosphatase 72 (35-129) units/L Total Protein 5.5 L (6.3-8.2) g/dL Albumin 2.9 L (3.9-5) g/dL - Allied health notes Allied health notes reviewed: RT
--- NOTE | 2016-05-25 13:10 | Nuclear Medicine Report ---
HEPATOBILIARY SCAN: History: Right upper quadrant. Previous ultrasound and CT of the abdomen were reviewed. Anterior abdominal images were obtained for 2 hours following injection of 5 mCi of technetium 99m Choletec. There is nonfilling of the gallbladder out to 2 hours. There is normal appearance of the radiotracer in the common bile duct and proximal bowel loops. IMPRESSION: Nonvisualization of the gallbladder after 2 hours which is concerning for obstruction of the cystic duct.
[2016-05-25] MEDS: HALFPRIN EC PO SCH (13:48)
[2016-05-25] MEDS: PROTONIX PO SCH (13:48)
[2016-05-25] MEDS: LEVAQUIN PO SCH (13:55)
[2016-05-25] MEDS ORDERED: LEVAQUIN PO ONE (14:00)
--- NOTE | 2016-05-25 14:04 | Progress Note ---
Assessment and Plan Pt feeling well. denies abd pain. Permanent pacemaker inserted. VSS Abd still 1+ distention. non tender HIDA - shows non vis GB cholecystitis? Pt clinically aymptomatic rec - attempt low fat diet begin empiric Levaquin. will closely monitor clinically still c/o chronic constipation consider GI eval - possible BE or colonoscopy when clinically stable Selected Entries 05/25/16 05/25/16 05/25/16 08:20 09:00 13:43 Temperature 97.9 F Pulse Rate [ 78 Anterior Bilateral Throughout] Respiratory 18 Rate [Anterior Bilateral Throughout] Blood Pressure 146/71 Laboratory Tests 05/25/16 05/25/16 04:06 04:06 WBC 10.5 Hgb 13.9 Hct 43.0 Sodium 139 Potassium 4.6 Chloride 103.8 Carbon Dioxide 21 L Creatinine 0.8 Total Bilirubin 0.6 Direct Bilirubin 0.2 Indirect Bilirubin 0.4 AST 34 ALT 69 H Alkaline Phosphatase 72 Objective Vital Signs - 12hr 05/25/16 05/25/16 05/25/16 02:10 02:20 02:30 Temperature Pulse Rate 81 84 82 Pulse Rate [ Anterior Bilateral Throughout] Pulse Rate [ From Monitor] Respiratory 16 15 16 Rate Respiratory Rate [Anterior Bilateral Throughout] Blood Pressure 143/99 143/99 143/99 O2 Sat by Pulse 96 98 97 Oximetry 05/25/16 05/25/16 05/25/16 02:40 02:50 03:00 Temperature Pulse Rate 99 H 82 83 Pulse Rate [ Anterior Bilateral Throughout] Pulse Rate [ From Monitor] Respiratory 15 11 L 15 Rate Respiratory Rate [Anterior Bilateral Throughout] Blood Pressure 143/99 143/99 131/77 O2 Sat by Pulse 98 94 91 Oximetry 05/25/16 05/25/16 05/25/16 03:10 03:20 03:30 Temperature Pulse Rate 81 79 82 Pulse Rate [ Anterior Bilateral Throughout] Pulse Rate [ From Monitor] Respiratory 15 15 17 Rate Respiratory Rate [Anterior Bilateral Throughout] Blood Pressure 131/77 131/77 131/77 O2 Sat by Pulse 91 92 91 Oximetry 05/25/16 05/25/16 05/25/16 03:40 03:50 04:00 Temperature Pulse Rate 81 83 83 Pulse Rate [ Anterior Bilateral Throughout] Pulse Rate [ 71 From Monitor] Respiratory 15 15 14 Rate Respiratory Rate [Anterior Bilateral Throughout] Blood Pressure 131/77 131/77 138/73 O2 Sat by Pulse 92 90 96 Oximetry 05/25/16 05/25/16 05/25/16 04:10 04:20 04:24 Temperature 97.1 F L Pulse Rate 79 80 Pulse Rate [ Anterior Bilateral Throughout] Pulse Rate [ From Monitor] Respiratory 14 16 Rate Respiratory Rate [Anterior Bilateral Throughout] Blood Pressure 138/73 138/73 O2 Sat by Pulse 97 97 Oximetry 05/25/16 05/25/16 05/25/16 04:30 04:40 04:50 Temperature Pulse Rate 76 77 74 Pulse Rate [ Anterior Bilateral Throughout] Pulse Rate [ From Monitor] Respiratory 15 14 15 Rate Respiratory Rate [Anterior Bilateral Throughout] Blood Pressure 138/73 138/73 138/73 O2 Sat by Pulse 98 97 99 Oximetry 05/25/16 05/25/16 05/25/16 05:00 05:10 05:20 Temperature Pulse Rate 76 74 77 Pulse Rate [ Anterior Bilateral Throughout] Pulse Rate [ From Monitor] Respiratory 14 18 18 Rate Respiratory Rate [Anterior Bilateral Throughout] Blood Pressure 139/73 139/73 139/73 O2 Sat by Pulse 92 97 97 Oximetry 05/25/16 05/25/16 05/25/16 05:30 05:40 05:50 Temperature Pulse Rate 76 76 73 Pulse Rate [ Anterior Bilateral Throughout] Pulse Rate [ From Monitor] Respiratory 14 14 14 Rate Respiratory Rate [Anterior Bilateral Throughout] Blood Pressure 139/73 139/73 139/73 O2 Sat by Pulse 98 98 97 Oximetry 05/25/16 05/25/16 05/25/16 06:00 06:10 06:20 Temperature Pulse Rate 72 74 71 Pulse Rate [ Anterior Bilateral Throughout] Pulse Rate [ From Monitor] Respiratory 18 16 15 Rate Respiratory Rate [Anterior Bilateral Throughout] Blood Pressure 137/78 137/78 137/78 O2 Sat by Pulse 98 97 98 Oximetry 05/25/16 05/25/16 05/25/16 06:30 06:40 06:50 Temperature Pulse Rate 70 73 74 Pulse Rate [ Anterior Bilateral Throughout] Pulse Rate [ From Monitor] Respiratory 15 14 15 Rate Respiratory Rate [Anterior Bilateral Throughout] Blood Pressure 137/78 137/78 137/78 O2 Sat by Pulse 97 96 97 Oximetry 05/25/16 05/25/16 05/25/16 07:00 07:10 07:11 Temperature Pulse Rate 72 73 Pulse Rate [ 77 Anterior Bilateral Throughout] Pulse Rate [ From Monitor] Respiratory 14 15 Rate Respiratory 18 Rate [Anterior Bilateral Throughout] Blood Pressure 121/63 121/63 O2 Sat by Pulse 96 98 96 Oximetry 05/25/16 05/25/16 05/25/16 07:19 07:20 07:30 Temperature Pulse Rate 75 75 Pulse Rate [ 78 Anterior Bilateral Throughout] Pulse Rate [ From Monitor] Respiratory 18 20 Rate Respiratory 18 Rate [Anterior Bilateral Throughout] Blood Pressure 121/63 121/63 O2 Sat by Pulse 97 95 Oximetry 05/25/16 05/25/16 05/25/16 07:40 07:50 08:00 Temperature Pulse Rate 73 71 72 Pulse Rate [ Anterior Bilateral Throughout] Pulse Rate [ From Monitor] Respiratory 17 13 15 Rate Respiratory Rate [Anterior Bilateral Throughout] Blood Pressure 121/63 121/63 146/71 O2 Sat by Pulse 96 97 95 Oximetry 05/25/16 05/25/16 05/25/16 08:10 08:20 09:00 Temperature 97.9 F Pulse Rate 74 71 Pulse Rate [ Anterior Bilateral Throughout] Pulse Rate [ From Monitor] Respiratory 20 17 Rate Respiratory Rate [Anterior Bilateral Throughout] Blood Pressure 146/71 146/71 O2 Sat by Pulse 97 97 Oximetry 05/25/16 05/25/16 13:38 13:43 Temperature Pulse Rate Pulse Rate [ 75 78 Anterior Bilateral Throughout] Pulse Rate [ From Monitor] Respiratory Rate Respiratory 18 18 Rate [Anterior Bilateral Throughout] Blood Pressure O2 Sat by Pulse Oximetry - Labs 05/25/16 04:06 05/25/16 04:06 Diabetes panel 05/25/16 Range/Units 04:06 Sodium 139 (137-145) mmol/L Potassium 4.6 (3.6-5.0) mmol/L Chloride 103.8 (98-107) mmol/L Carbon Dioxide 21 L (22-30) mmol/L BUN 24 H (9-20) mg/dL Creatinine 0.8 (0.8-1.5) mg/dL Glucose 121 H (75-100) mg/dL Calcium 8.3 L (8.4-10.2) mg/dL AST 34 (5-40) units/L ALT 69 H (7-56) units/L Alkaline Phosphatase 72 (35-129) units/L Total Protein 5.5 L (6.3-8.2) g/dL Albumin 2.9 L (3.9-5) g/dL Calcium panel 05/25/16 Range/Units 04:06 Calcium 8.3 L (8.4-10.2) mg/dL Albumin 2.9 L (3.9-5) g/dL Pituitary panel 05/25/16 Range/Units 04:06 Sodium 139 (137-145) mmol/L Potassium 4.6 (3.6-5.0) mmol/L Chloride 103.8 (98-107) mmol/L Carbon Dioxide 21 L (22-30) mmol/L BUN 24 H (9-20) mg/dL Creatinine 0.8 (0.8-1.5) mg/dL Glucose 121 H (75-100) mg/dL Calcium 8.3 L (8.4-10.2) mg/dL Adrenal panel 05/25/16 Range/Units 04:06 Sodium 139 (137-145) mmol/L Potassium 4.6 (3.6-5.0) mmol/L Chloride 103.8 (98-107) mmol/L Carbon Dioxide 21 L (22-30) mmol/L BUN 24 H (9-20) mg/dL Creatinine 0.8 (0.8-1.5) mg/dL Glucose 121 H (75-100) mg/dL Calcium 8.3 L (8.4-10.2) mg/dL Total Bilirubin 0.6 (0.1-1.2) mg/dL AST 34 (5-40) units/L ALT 69 H (7-56) units/L Alkaline Phosphatase 72 (35-129) units/L Total Protein 5.5 L (6.3-8.2) g/dL Albumin 2.9 L (3.9-5) g/dL
--- NOTE | 2016-05-25 15:43 | Progress Note ---
Assessment and Plan - Patient Problems (1) Bradycardia Current Visit: Yes Status: Acute Plan to address problem: Permanent pace maker placement this morning. Can transfer to telemetry (2) COPD with acute exacerbation Current Visit: Yes Status: Acute Plan to address problem: Continue bronchodilators and nebulized steroids. Out patient pulmonary follow up to evaluate pulmonary physiology and optimize therapies (3) Sleep disorder breathing Current Visit: Yes Status: Acute Plan to address problem: Continue with CPAP at night. explained the pathophysiology of sleep apnea and the need for PAP. Will adjust the pressures to allow for compliance with the machine. To follow up as an outpatient for home sleep study to document sleep apnea. Subjective Date of service: 05/25/16 Principal diagnosis: Symptomatic Bradycardia Interval history: No acute overnight events. Vitals, labs, medications and chart reviewed. s/p permanent pacemaker placement. Family at the bedside. Declined to use CPAP over night. NPO for HIDA scan today Denies any chest pain, no shortness of breath, no fevers or chills. No dizziness. Objective Vital Signs - 12hr 05/25/16 05/25/16 05/25/16 03:50 04:00 04:10 Temperature Pulse Rate 83 83 79 Pulse Rate [ Anterior Bilateral Throughout] Pulse Rate [ 71 From Monitor] Respiratory 15 14 14 Rate Respiratory Rate [Anterior Bilateral Throughout] Blood Pressure 131/77 138/73 138/73 O2 Sat by Pulse 90 96 97 Oximetry 05/25/16 05/25/16 05/25/16 04:20 04:24 04:30 Temperature 97.1 F L Pulse Rate 80 76 Pulse Rate [ Anterior Bilateral Throughout] Pulse Rate [ From Monitor] Respiratory 16 15 Rate Respiratory Rate [Anterior Bilateral Throughout] Blood Pressure 138/73 138/73 O2 Sat by Pulse 97 98 Oximetry 05/25/16 05/25/16 05/25/16 04:40 04:50 05:00 Temperature Pulse Rate 77 74 76 Pulse Rate [ Anterior Bilateral Throughout] Pulse Rate [ From Monitor] Respiratory 14 15 14 Rate Respiratory Rate [Anterior Bilateral Throughout] Blood Pressure 138/73 138/73 139/73 O2 Sat by Pulse 97 99 92 Oximetry 05/25/16 05/25/16 05/25/16 05:10 05:20 05:30 Temperature Pulse Rate 74 77 76 Pulse Rate [ Anterior Bilateral Throughout] Pulse Rate [ From Monitor] Respiratory 18 18 14 Rate Respiratory Rate [Anterior Bilateral Throughout] Blood Pressure 139/73 139/73 139/73 O2 Sat by Pulse 97 97 98 Oximetry 05/25/16 05/25/16 05/25/16 05:40 05:50 06:00 Temperature Pulse Rate 76 73 72 Pulse Rate [ Anterior Bilateral Throughout] Pulse Rate [ From Monitor] Respiratory 14 14 18 Rate Respiratory Rate [Anterior Bilateral Throughout] Blood Pressure 139/73 139/73 137/78 O2 Sat by Pulse 98 97 98 Oximetry 05/25/16 05/25/16 05/25/16 06:10 06:20 06:30 Temperature Pulse Rate 74 71 70 Pulse Rate [ Anterior Bilateral Throughout] Pulse Rate [ From Monitor] Respiratory 16 15 15 Rate Respiratory Rate [Anterior Bilateral Throughout] Blood Pressure 137/78 137/78 137/78 O2 Sat by Pulse 97 98 97 Oximetry 05/25/16 05/25/16 05/25/16 06:40 06:50 07:00 Temperature Pulse Rate 73 74 72 Pulse Rate [ Anterior Bilateral Throughout] Pulse Rate [ From Monitor] Respiratory 14 15 14 Rate Respiratory Rate [Anterior Bilateral Throughout] Blood Pressure 137/78 137/78 121/63 O2 Sat by Pulse 96 97 96 Oximetry 05/25/16 05/25/16 05/25/16 07:10 07:11 07:19 Temperature Pulse Rate 73 Pulse Rate [ 77 78 Anterior Bilateral Throughout] Pulse Rate [ From Monitor] Respiratory 15 Rate Respiratory 18 18 Rate [Anterior Bilateral Throughout] Blood Pressure 121/63 O2 Sat by Pulse 98 96 Oximetry 05/25/16 05/25/16 05/25/16 07:20 07:30 07:40 Temperature Pulse Rate 75 75 73 Pulse Rate [ Anterior Bilateral Throughout] Pulse Rate [ From Monitor] Respiratory 18 20 17 Rate Respiratory Rate [Anterior Bilateral Throughout] Blood Pressure 121/63 121/63 121/63 O2 Sat by Pulse 97 95 96 Oximetry 05/25/16 05/25/16 05/25/16 07:50 08:00 08:10 Temperature Pulse Rate 71 72 74 Pulse Rate [ Anterior Bilateral Throughout] Pulse Rate [ From Monitor] Respiratory 13 15 20 Rate Respiratory Rate [Anterior Bilateral Throughout] Blood Pressure 121/63 146/71 146/71 O2 Sat by Pulse 97 95 97 Oximetry 05/25/16 05/25/16 05/25/16 08:20 08:30 08:40 Temperature Pulse Rate 71 73 70 Pulse Rate [ Anterior Bilateral Throughout] Pulse Rate [ From Monitor] Respiratory 17 17 17 Rate Respiratory Rate [Anterior Bilateral Throughout] Blood Pressure 146/71 146/71 146/71 O2 Sat by Pulse 97 96 96 Oximetry 05/25/16 05/25/16 05/25/16 08:50 09:00 09:10 Temperature 97.9 F Pulse Rate 77 79 79 Pulse Rate [ Anterior Bilateral Throughout] Pulse Rate [ From Monitor] Respiratory 22 17 25 H Rate Respiratory Rate [Anterior Bilateral Throughout] Blood Pressure 146/71 138/79 138/79 O2 Sat by Pulse 95 94 Oximetry 05/25/16 05/25/16 05/25/16 09:20 09:30 09:40 Temperature Pulse Rate 81 81 79 Pulse Rate [ Anterior Bilateral Throughout] Pulse Rate [ From Monitor] Respiratory 20 20 20 Rate Respiratory Rate [Anterior Bilateral Throughout] Blood Pressure 138/79 138/79 146/71 O2 Sat by Pulse 96 95 96 Oximetry 05/25/16 05/25/16 05/25/16 09:50 10:00 13:05 Temperature 97.9 F Pulse Rate 79 80 Pulse Rate [ Anterior Bilateral Throughout] Pulse Rate [ From Monitor] Respiratory 17 25 H Rate Respiratory Rate [Anterior Bilateral Throughout] Blood Pressure 146/71 122/78 O2 Sat by Pulse 96 95 Oximetry 05/25/16 05/25/16 05/25/16 13:16 13:20 13:30 Temperature Pulse Rate 74 72 Pulse Rate [ Anterior Bilateral Throughout] Pulse Rate [ From Monitor] Respiratory 15 15 Rate Respiratory Rate [Anterior Bilateral Throughout] Blood Pressure 133/74 133/74 133/74 O2 Sat by Pulse 95 97 97 Oximetry 05/25/16 05/25/16 05/25/16 13:38 13:40 13:43 Temperature Pulse Rate 75 Pulse Rate [ 75 78 Anterior Bilateral Throughout] Pulse Rate [ From Monitor] Respiratory 13 Rate Respiratory 18 18 Rate [Anterior Bilateral Throughout] Blood Pressure 122/78 O2 Sat by Pulse 97 Oximetry 05/25/16 05/25/16 05/25/16 13:50 14:00 14:10 Temperature Pulse Rate 81 85 76 Pulse Rate [ Anterior Bilateral Throughout] Pulse Rate [ From Monitor] Respiratory 19 18 19 Rate Respiratory Rate [Anterior Bilateral Throughout] Blood Pressure 122/78 122/78 122/78 O2 Sat by Pulse 96 96 96 Oximetry 05/25/16 05/25/16 05/25/16 14:20 14:30 14:40 Temperature Pulse Rate 75 76 82 Pulse Rate [ Anterior Bilateral Throughout] Pulse Rate [ From Monitor] Respiratory 20 19 16 Rate Respiratory Rate [Anterior Bilateral Throughout] Blood Pressure 122/78 122/78 122/78 O2 Sat by Pulse 97 97 95 Oximetry 05/25/16 05/25/16 05/25/16 14:50 15:00 15:10 Temperature Pulse Rate 79 85 77 Pulse Rate [ Anterior Bilateral Throughout] Pulse Rate [ From Monitor] Respiratory 17 21 18 Rate Respiratory Rate [Anterior Bilateral Throughout] Blood Pressure 133/74 133/74 133/74 O2 Sat by Pulse 97 96 96 Oximetry Constitutional: no acute distress, alert Eyes: non-icteric ENT: oropharynx moist Neck: supple, no lymphadenopathy Effort: normal Ascultation: Bilateral: diminished breath sounds, wheezes (cleared on coughing) Cardiovascular: regular rate and rhythm, other (left chest wall device, arm in sling) Gastrointestinal: normoactive bowel sounds, soft, non-tender, non-distended Integumentary: normal Extremities: no cyanosis, no edema, pink and warm, pulses normal, no ischemia or petechiae, edema (1++) Neurologic: normal mental status, non-focal exam, pupils equal and round, motor strength normal and Psychiatric: mood appropriate, affect normal CBC and BMP: 05/25/16 04:06 05/25/16 04:06 ABG, PT/INR, D-dimer: PT/INR, D-dimer PT 14.8 Sec. (12.2-14.9) 05/24/16 03:58 INR 1.17 (0.87-1.13) H 05/24/16 03:58 Abnormal lab findings: Abnormal Labs 05/21/16 05/21/16 05/21/16 13:01 15:59 20:00 WBC RBC Hct RDW Lymph % (Auto) [place] % (Auto) [place] # Seg Neutrophils % Seg Neutrophils # INR APTT Sodium Carbon Dioxide BUN Glucose POC Glucose Lactic Acid 2.7 H* Calcium Direct Bilirubin AST ALT CK-MB (CK-2) 4.2 H Troponin T 0.035 H D 0.041 H Total Protein Albumin HDL Cholesterol 68 H 05/22/16 05/22/16 05/22/16 04:33 04:33 13:56 WBC 16.1 H RBC Hct RDW 16.1 H Lymph % (Auto) 12.2 L [place] % (Auto) [place] # 1.1 H Seg Neutrophils % 80.0 H Seg Neutrophils # 12.9 H INR APTT Sodium Carbon Dioxide 20 L BUN Glucose POC Glucose 108 H Lactic Acid Calcium Direct Bilirubin 0.3 H AST 52 H ALT 203 H CK-MB (CK-2) Troponin T Total Protein 5.8 L Albumin 3.2 L HDL Cholesterol 05/22/16 05/23/16 05/23/16 17:45 01:49 03:27 WBC 12.8 H RBC Hct 45.7 H RDW 15.6 H Lymph % (Auto) [place] % (Auto) [place] # 0.9 H Seg Neutrophils % 72.1 H Seg Neutrophils # 9.3 H INR APTT Sodium Carbon Dioxide BUN Glucose POC Glucose 139 H 107 H Lactic Acid Calcium Direct Bilirubin AST ALT CK-MB (CK-2) Troponin T Total Protein Albumin HDL Cholesterol 05/23/16 05/23/16 05/23/16 03:27 10:11 14:27 WBC RBC Hct RDW Lymph % (Auto) [place] % (Auto) [place] # Seg Neutrophils % Seg Neutrophils # INR APTT Sodium Carbon Dioxide BUN Glucose 103 H POC Glucose 118 H 122 H Lactic Acid Calcium Direct Bilirubin 0.3 H AST ALT 143 H CK-MB (CK-2) Troponin T Total Protein 5.6 L Albumin 3.1 L HDL Cholesterol 05/23/16 05/24/16 05/24/16 17:54 03:58 03:58 WBC 11.4 H RBC 5.09 H Hct 47.6 H RDW 15.9 H Lymph % (Auto) [place] % (Auto) 7.9 H [place] # 0.9 H Seg Neutrophils % Seg Neutrophils # 7.9 H INR 1.17 H APTT 23.3 L Sodium Carbon Dioxide BUN Glucose POC Glucose 134 H Lactic Acid Calcium Direct Bilirubin AST ALT CK-MB (CK-2) Troponin T Total Protein Albumin HDL Cholesterol 05/24/16 05/24/16 05/24/16 03:58 15:53 16:58 WBC RBC Hct RDW Lymph % (Auto) [place] % (Auto) [place] # Seg Neutrophils % Seg Neutrophils # INR APTT Sodium 135 L Carbon Dioxide BUN Glucose 101 H POC Glucose 110 H 108 H Lactic Acid Calcium Direct Bilirubin AST ALT 100 H CK-MB (CK-2) Troponin T Total Protein 5.5 L Albumin 2.8 L HDL Cholesterol 05/24/16 05/25/16 05/25/16 21:51 01:44 04:06 WBC RBC Hct RDW 15.3 H Lymph % (Auto) [place] % (Auto) 8.7 H [place] # 0.9 H Seg Neutrophils % 75.0 H Seg Neutrophils # 7.9 H INR APTT Sodium Carbon Dioxide BUN Glucose POC Glucose 126 H 121 H Lactic Acid Calcium Direct Bilirubin AST ALT CK-MB (CK-2) Troponin T Total Protein Albumin HDL Cholesterol 05/25/16 05/25/16 04:06 05:43 WBC RBC Hct RDW Lymph % (Auto) [place] % (Auto) [place] # Seg Neutrophils % Seg Neutrophils # INR APTT Sodium Carbon Dioxide 21 L BUN 24 H Glucose 121 H POC Glucose 111 H Lactic Acid Calcium 8.3 L Direct Bilirubin AST ALT 69 H CK-MB (CK-2) Troponin T Total Protein 5.5 L Albumin 2.9 L HDL Cholesterol Allied health notes reviewed: nursing
[2016-05-25] MEDS: ANCEF/NS 1 GM/50 ML 1 GM/50 ML BAG IV SCH (18:02)
--- NOTE | 2016-05-25 18:34 | Gastroenterology Consultation ---
History of Present Illness - Reason for Consult Consult date: 05/25/16 Abdominal bloating, elevate ALT, AST Requesting physician: DARI CARVALHO - History of Present Illness The patient is s 75 year old man admitted on 05/21/16 with symptomatic bradycardia who ultimately required a PPM placed yesterday. Consultation has been requested for abdominal bloating discomfort and mild diarrhea for approximately 3 weeks. He also has mild elevation of his transaminases. There is no history of blood transfusions, IVDU or known hepatitis. Patient denies weight loss, blood in stools or constipation. He has typically had only one loose stool per day for the past [address] of the abdomen revealed on focal hepatic lesions, colonic disease or neoplasia. Past History Past Medical History: hypertension, other (glaucoma, bronchitis, shingles) Past Surgical History: No surgical history Social history: lives with family, smoking (quit few years ago), full code. denies: alcohol abuse, prescription drug abuse Family history: hypertension Medications and Allergies Allergies Allergy/AdvReac Type Severity Reaction Status Date / Time No Known Allergies Allergy Unverified 06/20/14 04:03 Home Medications Medication Instructions Recorded Confirmed Last Taken Type Aspirin [Adult Low Dose Aspirin EC] 81 mg PO QDAY 02/12/15 05/21/16 Unknown History Multivitamin Tab [Multiple Vitamin 1 each PO QDAY 02/12/15 05/21/16 Unknown History TAB (Theragran)] Albuterol 2 mg PO BID 05/21/16 05/21/16 Unknown History Allergy 180 mg PO DAILY 05/21/16 05/21/16 Unknown History Breo Ellipta 100-25 Mcg INH 1 puff IH HS 05/21/16 05/21/16 Unknown History Dorzolamide HCl 1 drop OU TID 05/21/16 05/21/16 Unknown History Latanoprost 0.005% 1 drop OU HS 05/21/16 05/21/16 Unknown History Mucinex ER 1 tab PO BID 05/21/16 05/21/16 Unknown History Stiolto Respimat Inhal [place] 1 puff IH HS 05/21/16 05/21/16 Unknown History Ventolin HFA 2 puff IH Q6H PRN 05/21/16 05/21/16 Unknown History methylPREDNISolone 24 mg PO DAILY 05/21/16 05/21/16 Unknown History Active Meds: Active Medications Acetaminophen/Hydrocodone Bitart ([place] 5/325) 1 each PO Q6H PRN PRN Reason: Pain, Moderate (4-6) Last Admin: 05/24/16 20:59 Dose: 1 each Albuterol/Ipratropium (Duoneb 0.5 Mg-3 Mg/3 Ml Soln) 1 ampul IH TIDRT [facility] Last Admin: 05/25/16 13:37 Dose: 1 ampul Arformoterol Tartrate (Brovana Nebu) 15 mcg IH Q12HRT [facility] Last Admin: 05/25/16 07:09 Dose: 15 mcg Aspirin (Halfprin Ec) 81 mg PO QDAY [facility] Last Admin: 05/25/16 13:48 Dose: 81 mg Atropine Sulfate (Atropine) 1 mg IV ONCE PRN PRN Reason: Bradycardia Budesonide (Pulmicort) 0.5 mg IH Q12HRT [facility] Last Admin: 05/25/16 07:09 Dose: 0.5 mg Enoxaparin Sodium (Lovenox) 40 mg SUB-Q DAILY [facility] Levofloxacin/Dextrose (Levaquin 500mg/100ml) 500 mg in 100 mls @ 100 mls/hr IV Q24HR [facility] PRN Reason: Protocol Stop: 05/31/16 09:59 Ondansetron HCl (Zofran) 4 mg IV Q4H PRN PRN Reason: Nausea And Vomiting Last Admin: 05/24/16 20:59 Dose: 4 mg Pantoprazole Sodium (Protonix) 40 mg PO DAILY [facility] Last Admin: 05/25/16 13:48 Dose: 40 mg Review of Systems - Review of Systems Constitutional: no weight loss, no weight gain, no fever Eyes: no change in vision Ears, Nose, Throat: no decreased hearing, no difficulty swallowing Breasts: deferred Cardiovascular: no chest pain, no shortness of breath Respiratory: no cough, no shortness of breath, no wheezing Gastrointestinal: diarrhea, no abdominal pain, no nausea, no vomiting, no constipation, no hematemesis, no BRBPR, no hematochezia, no heartburn, no indigestion Rectal: no pain, no bleeding Male Genitourinary: deferred Musculoskeletal: no gait dysfunction, no joint pain, no muscle pain Integumentary: no rash, no pruritis, no jaundice Exam - Constitutional Vital Signs: Temp Pulse Resp BP Pulse Ox 97.9 F 77 18 133/74 96 05/25/16 13:05 05/25/16 15:10 05/25/16 15:10 05/25/16 15:10 05/25/16 15:10 General appearance: no acute distress, well-nourished - EENT Eyes: PERRL ENT: hearing intact, clear oral mucosa, dentition normal - Neck Neck: supple, normal ROM, no masses or JVD - Respiratory Respiratory effort: normal Respiratory: bilateral: CTA - Breasts Breasts: deferred - Cardiovascular Rhythm: regular Heart Sounds: Present: S1 & S2. Absent: gallop, rub Extremities: pulses intact, No edema, normal color, Full ROM - Gastrointestinal General gastrointestinal: Present: soft, non-tender, distended (mild distention and typany), normal bowel sounds. Absent: hepatomegaly, splenomegaly, mass Rectal Exam: deferred - Genitourinary Male Genitourinary: deferred - Integumentary Integumentary: Present: clear, warm, dry - Neurologic Neurological: alert and oriented x3 - Labs CBC & Chem 7: 05/25/16 04:06 05/25/16 04:06 Lab Results: Laboratory Results - last 24 hr 05/24/16 05/24/16 05/25/16 16:58 21:51 01:44 WBC RBC Hgb Hct MCV MCH MCHC RDW Plt Count Lymph % (Auto) [place] % (Auto) Eos % (Auto) Baso % (Auto) Lymph # [place] # Eos # Baso # Seg Neutrophils % Seg Neutrophils # Sodium Potassium Chloride Carbon Dioxide Anion Gap BUN Creatinine Estimated GFR BUN/Creatinine Ratio Glucose POC Glucose 108 H 126 H 121 H Calcium Magnesium Total Bilirubin Direct Bilirubin Indirect Bilirubin AST ALT Alkaline Phosphatase Total Protein Albumin Albumin/Globulin Ratio 05/25/16 05/25/16 05/25/16 04:06 04:06 05:43 WBC 10.5 RBC 4.61 Hgb 13.9 Hct 43.0 MCV 93 MCH 30 MCHC 32 RDW 15.3 H Plt Count 165 Lymph % (Auto) 14.2 [place] % (Auto) 8.7 H Eos % (Auto) 1.8 Baso % (Auto) 0.3 Lymph # 1.5 [place] # 0.9 H Eos # 0.2 Baso # 0.0 Seg Neutrophils % 75.0 H Seg Neutrophils # 7.9 H Sodium 139 Potassium 4.6 Chloride 103.8 Carbon Dioxide 21 L Anion Gap 19 BUN 24 H Creatinine 0.8 Estimated GFR > 60 BUN/Creatinine Ratio 30.00 Glucose 121 H POC Glucose 111 H Calcium 8.3 L Magnesium 2.1 Total Bilirubin 0.6 Direct Bilirubin 0.2 Indirect Bilirubin 0.4 AST 34 ALT 69 H Alkaline Phosphatase 72 Total Protein 5.5 L Albumin 2.9 L Albumin/Globulin Ratio 1.1 05/25/16 05/25/16 07:28 13:11 WBC RBC Hgb Hct MCV MCH MCHC RDW Plt Count Lymph % (Auto) [place] % (Auto) Eos % (Auto) Baso % (Auto) Lymph # [place] # Eos # Baso # Seg Neutrophils % Seg Neutrophils # Sodium Potassium Chloride Carbon Dioxide Anion Gap BUN Creatinine Estimated GFR BUN/Creatinine Ratio Glucose POC Glucose 96 104 Calcium Magnesium Total Bilirubin Direct Bilirubin Indirect Bilirubin AST ALT Alkaline Phosphatase Total Protein Albumin Albumin/Globulin Ratio Assessment and Plan - Patient Problems (1) Elevated ALT measurement Current Visit: Yes Status: Acute Plan to address problem: Hepatitis studies ordered. No focal lesions on CT. Outpatient work up should be continued. (2) Abdominal pain Current Visit: Yes Status: Acute Qualifiers: Abdominal location: left upper quadrant Qualified Code(s): R10.12 - Left upper quadrant pain Plan to address problem: Bloating abdominal discomfort associated with gas and distention on exam. The abdomen is overall benign. He needs colonoscopy, which is recommended to be done in the next few weeks as an outpatient for exclusion of neoplasia. Dietary intolerance, celiac disease are other possibilities. No mass or obstruction seen on CT scan. (3) Symptomatic bradycardia Current Visit: Yes Status: Acute (4) Shingles outbreak Current Visit: No Status: Acute Qualifiers: Herpes zoster complications: without complications Herpes zoster neurologic complication detail: H Herpes zoster ocular complication detail: H Qualified Code(s): B02.9 - Zoster without complications
[2016-05-26 06:58] LABS: Hematocrit 40.5 % (35.5-45.6); Hemoglobin 13.3 gm/dl (11.8-15.2); Mean Corpuscular HGB Conc 33 % (32-34); Mean Corpuscular Hemoglobin 30 pg (28-32); Mean Corpuscular Volume 92 fl (84-94); Platelet Count 139 K/mm3 (140-440); Red Cell Distribution Width 15.1 % (13.2-15.2); White Blood Count 9.8 K/mm3 (4.5-11.0)
[2016-05-26 07:11] LABS: Alanine Aminotransferase 52 units/L (7-56); Albumin 2.8 g/dL (3.9-5); Albumin/Globulin Ratio 1.2 %; Alkaline Phosphatase 66 units/L (35-129); Anion Gap 17 mmol/L; BUN/Creatinine Ratio 18.75; Bilirubin,Total 0.6 mg/dL (0.1-1.2); Blood Urea Nitrogen 15 mg/dL (9-20); Calcium 8.1 mg/dL (8.4-10.2); Carbon Dioxide 22 mmol/L (22-30); Chloride 103.5 mmol/L (98-107); Glucose 97 mg/dL (75-100); Potassium 4.2 mmol/L (3.6-5.0); Sodium 138 mmol/L (137-145); Total Protein 5.2 g/dL (6.3-8.2)
[2016-05-26] MEDS: DUONEB 0.5 MG-3 MG/3 ML SOLN IH SCH (07:44)
[2016-05-26] MEDS: BROVANA NEBU IH SCH (07:45)
[2016-05-26] MEDS: PULMICORT IH SCH (07:45)
[2016-05-26 07:46] VITALS: BP 149/80
--- NOTE | 2016-05-26 07:52 | Progress Note ---
Assessment and Plan Pt feeling well no specific compl. aruna solid diet. denies abd pain Abd - decreased distention, non tender GI eval appreciated. for colonoscopy in near future surgically stable continue IV Levaquin monitor clinically Selected Entries 05/26/16 05/26/16 07:45 07:46 Temperature 97.6 F Pulse Rate [ 82 Anterior Bilateral Throughout] Respiratory 16 Rate [Anterior Bilateral Throughout] Blood Pressure 149/80 [Right Radial Artery] Laboratory Tests 05/26/16 05/26/16 05:27 05:27 WBC 9.8 Hgb 13.3 Hct 40.5 Plt Count 139 L Sodium 138 Potassium 4.2 Chloride 103.5 Carbon Dioxide 22 Anion Gap 17 BUN 15 Creatinine 0.8 Total Bilirubin 0.6 AST 34 ALT 52 Alkaline Phosphatase 66 Objective Vital Signs - 12hr 05/25/16 05/25/16 05/25/16 19:55 20:58 21:10 Temperature 97.2 F L Pulse Rate Pulse Rate [ 84 Anterior Bilateral Throughout] Pulse Rate [ 80 Right Radial] Respiratory 20 Rate Respiratory 18 Rate [Anterior Bilateral Throughout] Blood Pressure 134/74 [Right Radial Artery] O2 Sat by Pulse 99 92 Oximetry 05/25/16 05/26/16 05/26/16 23:21 00:50 06:26 Temperature 98.2 F 98.6 F Pulse Rate 83 Pulse Rate [ Anterior Bilateral Throughout] Pulse Rate [ 80 77 Right Radial] Respiratory 16 20 20 Rate Respiratory Rate [Anterior Bilateral Throughout] Blood Pressure 126/67 121/69 [Right Radial Artery] O2 Sat by Pulse 99 95 93 Oximetry 05/26/16 05/26/16 07:45 07:46 Temperature 97.6 F Pulse Rate Pulse Rate [ 82 Anterior Bilateral Throughout] Pulse Rate [ 74 Right Radial] Respiratory 18 Rate Respiratory 16 Rate [Anterior Bilateral Throughout] Blood Pressure 149/80 [Right Radial Artery] O2 Sat by Pulse 93 Oximetry - Labs 05/26/16 05:27 05/26/16 05:27 Diabetes panel 05/26/16 Range/Units 05:27 Sodium 138 (137-145) mmol/L Potassium 4.2 (3.6-5.0) mmol/L Chloride 103.5 (98-107) mmol/L Carbon Dioxide 22 (22-30) mmol/L BUN 15 (9-20) mg/dL Creatinine 0.8 (0.8-1.5) mg/dL Glucose 97 (75-100) mg/dL Calcium 8.1 L (8.4-10.2) mg/dL AST 34 (5-40) units/L ALT 52 (7-56) units/L Alkaline Phosphatase 66 (35-129) units/L Total Protein 5.2 L (6.3-8.2) g/dL Albumin 2.8 L (3.9-5) g/dL Thyroid panel 05/25/16 Range/Units 19:45 TSH 2.690 (0.270-4.200) mlU/mL Calcium panel 05/26/16 Range/Units 05:27 Calcium 8.1 L (8.4-10.2) mg/dL Albumin 2.8 L (3.9-5) g/dL Pituitary panel 05/25/16 05/26/16 Range/Units 19:45 05:27 Sodium 138 (137-145) mmol/L Potassium 4.2 (3.6-5.0) mmol/L Chloride 103.5 (98-107) mmol/L Carbon Dioxide 22 (22-30) mmol/L BUN 15 (9-20) mg/dL Creatinine 0.8 (0.8-1.5) mg/dL Glucose 97 (75-100) mg/dL Calcium 8.1 L (8.4-10.2) mg/dL TSH 2.690 (0.270-4.200) mlU/mL Adrenal panel 05/26/16 Range/Units 05:27 Sodium 138 (137-145) mmol/L Potassium 4.2 (3.6-5.0) mmol/L Chloride 103.5 (98-107) mmol/L Carbon Dioxide 22 (22-30) mmol/L BUN 15 (9-20) mg/dL Creatinine 0.8 (0.8-1.5) mg/dL Glucose 97 (75-100) mg/dL Calcium 8.1 L (8.4-10.2) mg/dL Total Bilirubin 0.6 (0.1-1.2) mg/dL AST 34 (5-40) units/L ALT 52 (7-56) units/L Alkaline Phosphatase 66 (35-129) units/L Total Protein 5.2 L (6.3-8.2) g/dL Albumin 2.8 L (3.9-5) g/dL
--- NOTE | 2016-05-26 09:42 | Progress Note ---
Assessment and Plan Severe bradycardia s/p pacemaker implant normal TSH Abdominal pain/distension EF 55-60% on echocardiogram Recommendations: Stable cardiac de dios. At time of discharge prescribe short course of antibiotics (keflex 500 tid x days) and pain medication. Once discharged, follow up with [facility], Dr Darnell, within 7-10 days. Subjective Date of service: 05/26/16 Principal diagnosis: Symptomatic Bradycardia Interval history: Patient has no cardiac complaints. Objective Vital Signs Temp Pulse Pulse Pulse Resp Resp BP 05/26/16 09:09 05/26/16 08:01 80 86 16 05/26/16 07:46 82 16 05/26/16 07:45 97.6 F 74 18 05/26/16 06:26 98.6 F 77 20 05/26/16 00:50 98.2 F 80 20 05/25/16 23:21 83 16 05/25/16 21:10 97.2 F L 80 20 05/25/16 20:58 05/25/16 19:55 84 18 05/25/16 19:39 82 18 05/25/16 19:31 05/25/16 19:30 77 05/25/16 15:10 77 18 133/74 05/25/16 15:00 85 21 133/74 05/25/16 14:50 79 17 133/74 05/25/16 14:40 82 16 122/78 05/25/16 14:30 76 19 122/78 05/25/16 14:20 75 20 122/78 05/25/16 14:10 76 19 122/78 05/25/16 14:00 85 18 122/78 05/25/16 13:50 81 19 122/78 05/25/16 13:43 78 18 05/25/16 13:40 75 13 122/78 05/25/16 13:38 75 18 05/25/16 13:30 72 15 133/74 05/25/16 13:20 74 15 133/74 05/25/16 13:16 133/74 05/25/16 13:05 97.9 F 05/25/16 10:00 80 25 H 122/78 05/25/16 09:50 79 17 146/71 BP Pulse Ox 05/26/16 09:09 93 05/26/16 08:01 05/26/16 07:46 05/26/16 07:45 149/80 93 05/26/16 06:26 121/69 93 05/26/16 00:50 126/67 95 05/25/16 23:21 99 05/25/16 21:10 134/74 92 05/25/16 20:58 99 05/25/16 19:55 05/25/16 19:39 05/25/16 19:31 99 05/25/16 19:30 05/25/16 15:10 96 05/25/16 15:00 96 05/25/16 14:50 97 05/25/16 14:40 95 05/25/16 14:30 97 05/25/16 14:20 97 05/25/16 14:10 96 05/25/16 14:00 96 05/25/16 13:50 96 05/25/16 13:43 05/25/16 13:40 97 05/25/16 13:38 05/25/16 13:30 97 05/25/16 13:20 97 05/25/16 13:16 95 05/25/16 13:05 05/25/16 10:00 95 05/25/16 09:50 96 - Physical Examination General: No Apparent Distress HEENT: Positive: PERRL Neck: Positive: trachea midline Cardiac: Positive: Reg Rate and Rhythm Neuro: Positive: Grossly Intact Incision: Incision Site (left upper chest) Extremities: Absent: edema - Labs and Meds Cardiac Enzymes 05/26/16 Range/Units 05:27 AST 34 (5-40) units/L CBC 05/26/16 Range/Units 05:27 WBC 9.8 (4.5-11.0) K/mm3 RBC 4.40 (3.65-5.03) M/mm3 Hgb 13.3 (11.8-15.2) gm/dl Hct 40.5 (35.5-45.6) % Plt Count 139 L (140-440) K/mm3 Comprehensive Metabolic Panel 05/26/16 Range/Units 05:27 Sodium 138 (137-145) mmol/L Potassium 4.2 (3.6-5.0) mmol/L Chloride 103.5 (98-107) mmol/L Carbon Dioxide 22 (22-30) mmol/L BUN 15 (9-20) mg/dL Creatinine 0.8 (0.8-1.5) mg/dL Glucose 97 (75-100) mg/dL Calcium 8.1 L (8.4-10.2) mg/dL AST 34 (5-40) units/L ALT 52 (7-56) units/L Alkaline Phosphatase 66 (35-129) units/L Total Protein 5.2 L (6.3-8.2) g/dL Albumin 2.8 L (3.9-5) g/dL - Allied health notes Allied health notes reviewed: nursing
--- NOTE | 2016-05-26 09:52 | Gastroenterology Progress Note ---
Assessment and Plan (1) Elevated ALT measurement Hepatitis negative. ALT WNL today (2) Abdominal pain Bloating abdominal discomfort associated with gas and distention on exam. The abdomen is overall benign. He needs colonoscopy, which is recommended to be done in the next few weeks as an outpatient for exclusion of neoplasia. Dietary intolerance, celiac disease are other possibilities. No mass or obstruction seen on CT scan. Office information provided to patient / and discussed at bedside follow up in clinic within 3-4 weeks. -Surgery following. (3) Symptomatic bradycardia -S/P pacemaker Subjective Date of service: 05/26/16 Principal diagnosis: Symptomatic Bradycardia Interval history: No acute changes overnight. Tolerating diet well. Objective - Constitutional Vitals: Temp Pulse Resp BP Pulse Ox 97.6 F 86 16 149/80 93 05/26/16 07:45 05/26/16 08:01 05/26/16 08:01 05/26/16 07:45 05/26/16 09:09 General appearance: no acute distress - EENT Eyes: EOM intact ENT: hearing intact - Respiratory Respiratory: bilateral: CTA - Cardiovascular Rhythm: regular Heart Sounds: Present: S1 & S2 - Gastrointestinal General gastrointestinal: Present: soft, non-tender, distended, normal bowel sounds - Integumentary Integumentary: Present: warm, dry - Neurologic Neurological: alert and oriented x3 - Labs CBC & Chem 7: 05/26/16 05:27 05/26/16 05:27 Labs: Laboratory Results - last 24 hr 05/25/16 05/25/16 05/25/16 07:28 13:11 19:45 WBC RBC Hgb Hct MCV MCH MCHC RDW Plt Count Sodium Potassium Chloride Carbon Dioxide Anion Gap BUN Creatinine Estimated GFR BUN/Creatinine Ratio Glucose POC Glucose 96 104 Calcium Total Bilirubin AST ALT Alkaline Phosphatase Total Protein Albumin Albumin/Globulin Ratio TSH 2.690 Free T4 Hep Bs Antigen Hepatitis C Antibody 05/25/16 05/25/16 05/25/16 19:45 19:53 19:54 WBC RBC Hgb Hct MCV MCH MCHC RDW Plt Count Sodium Potassium Chloride Carbon Dioxide Anion Gap BUN Creatinine Estimated GFR BUN/Creatinine Ratio Glucose POC Glucose Calcium Total Bilirubin AST ALT Alkaline Phosphatase Total Protein Albumin Albumin/Globulin Ratio TSH Free T4 1.16 Hep Bs Antigen Non-reactive Hepatitis C Antibody Non-reactive 05/26/16 05/26/16 05:27 05:27 WBC 9.8 RBC 4.40 Hgb 13.3 Hct 40.5 MCV 92 MCH 30 MCHC 33 RDW 15.1 Plt Count 139 L Sodium 138 Potassium 4.2 Chloride 103.5 Carbon Dioxide 22 Anion Gap 17 BUN 15 Creatinine 0.8 Estimated GFR > 60 BUN/Creatinine Ratio 18.75 Glucose 97 POC Glucose Calcium 8.1 L Total Bilirubin 0.6 AST 34 ALT 52 Alkaline Phosphatase 66 Total Protein 5.2 L Albumin 2.8 L Albumin/Globulin Ratio 1.2 TSH Free T4 Hep Bs Antigen Hepatitis C Antibody
[2016-05-26] MEDS ORDERED: LOVENOX SUB-Q SCH (10:00)
[2016-05-26] MEDS ORDERED: LEVAQUIN 500MG/100ML 500 MG/100 ML BAG IV SCH (10:00)
[2016-05-26] MEDS: PROTONIX PO SCH (10:26)
[2016-05-26] MEDS: HALFPRIN EC PO SCH (10:26)
--- NOTE | 2016-05-26 10:40 | Discharge Summary ---
Providers - Providers Date of Admission: 05/21/16 03:56 Date of discharge: 05/26/16 Attending physician: DARI CARVALHO 05/21/16 06:04 Consult to Physician [CONS] Urgent Consulting Provider: AMAYA AVALOS Reason For Exam: asx bradycardia Notified:: already notified 05/21/16 06:08 Consult to Physician [CONS] Routine Consulting Provider: ANIBAL ROLLE Reason For Exam: brADYCARDIA, HR 25 Notified:: psychiatric secretary pl call 05/22/16 07:54 Consult to Physician [CONS] Routine Consulting Provider: GLENROY COOK Reason For Exam: abd pain/cholelithiasis/GB sludge Place consult to:: Glenroy Cook Notified:: yes Phone number called:: [phone] Time called:: 17:33 05/25/16 14:28 Consult to Physician [CONS] Routine Consulting Provider: PARISH CAVANAUGH Reason For Exam: cholecystitis Place consult to:: Dr. Cavanaugh Notified:: yes Primary care physician: SUBPOENA SERVER Hospitalization Condition: Stable Disposition: STILL A PATIENT - Discharge Diagnoses (1) Bradycardia Status: Acute Exam - Constitutional Vitals: Temp Pulse Resp BP Pulse Ox 97.6 F 86 16 149/80 93 05/26/16 07:45 05/26/16 08:01 05/26/16 08:01 05/26/16 07:45 05/26/16 09:09 Plan Activity: advance as tolerated Diet: low fat, low cholesterol, low salt Additional Instructions: 1.Follow up PCP in 1 week. 2.Follow up with Dr. Darnell in 1 week. 3.Follow up with FEROZ Shearer in 2-3 weeks Follow up with: PRIMARY CARE, [Primary Care Provider] - 3-5 Days
[2016-05-26] MEDS ORDERED: DORZOLAMIDE HCL OU SCH (14:00)
[2016-05-26] MEDS ORDERED: XALATAN 0.005% OU SCH (22:00)
== END 2016-05-26 12:25 | disposition home or self-care (01) | DRG 243 ==
LOC: ED 21:12 → 4A 05-21 03:56 → CC1 05-21 06:31 → 4A 05-25 15:55
PROVIDERS: ADMIT Internal Medicine; ATTEND Internal Medicine
PROC: 0JH606Z Insertion of Pacemaker, Dual Chamber into Chest Subcutaneous Tissue and Fascia, Open Approach (ICD-10-PCS; principal; 2016-05-24)
PROC: 02H63JZ Insertion of Pacemaker Lead into Right Atrium, Percutaneous Approach (ICD-10-PCS; 2016-05-24)
PROC: 3E0102A Introduction of Anti-Infective Envelope into Subcutaneous Tissue, Open Approach (ICD-10-PCS; 2016-05-24)
DX: I44.2 Atrioventricular block, complete (principal); E44.0 Moderate protein-calorie malnutrition; J44.1 Chronic obstructive pulmonary disease with (acute) exacerbation; K80.20 Calculus of gallbladder without cholecystitis without obstruction; K59.00 Constipation, unspecified; H40.9 Unspecified glaucoma; I10 Essential (primary) hypertension; G47.30 Sleep apnea, unspecified; K82.8 Other specified diseases of gallbladder; Z87.891 Personal history of nicotine dependence; Z79.82 Long term (current) use of aspirin; Z82.49 Family history of ischemic heart disease and other diseases of the circulatory system; Z87.09 Personal history of other diseases of the respiratory system; Z68.27 Body mass index [BMI] 27.0-27.9, adult
CPT/HCPCS: 33208; 33210; 36415; 71010; 74177; 76700; 78226; 80048; 80053; 80061; 80074; 81001; 82140; 82150; 82550; 82553; 82962; 83690; 83735; 83880; 84100; 84439; 84443; 84484; 85007; 85025; 85027; 85610; 85730; 86140; 86705; 86706; 86709; 86803; 87040; 93005; 93010; 93306; 94640; 94660; 94760; 96365; 96375; 99291; A9537; C1779; C1781; C1785; C1894; J0461; J0690; J0696; J1170; J1644; J1650; J1940; J1956; J2250; J2270; J2405; J3010; J3370; J7030; Q9967

== ENCOUNTER 2016-06-27 03:27 | Emergency (ER) | payer MEDICARE ==
[2016-06-27 04:39] LABS: Basophils % (Auto) 0.5 % (0.0-1.8); Eosinophils % (Auto) 1.4 % (0.0-4.3); Hematocrit 39.1 % (35.5-45.6); Hemoglobin 12.9 gm/dl (11.8-15.2); Mean Corpuscular HGB Conc 33 % (32-34); Mean Corpuscular Hemoglobin 30 pg (28-32); Mean Corpuscular Volume 90 fl (84-94); Platelet Count 198 K/mm3 (140-440); Red Blood Count 4.37 M/mm3 (3.65-5.03); Red Cell Distribution Width 14.1 % (13.2-15.2); White Blood Count 10.8 K/mm3 (4.5-11.0)
[2016-06-27 04:43] LABS: Alanine Aminotransferase 19 units/L (7-56); Albumin 3.5 g/dL (3.9-5); Albumin/Globulin Ratio 1.1 %; Alkaline Phosphatase 69 units/L (35-129); Anion Gap 20 mmol/L; Blood Urea Nitrogen 22 mg/dL (9-20); Calcium 8.9 mg/dL (8.4-10.2); Carbon Dioxide 17 mmol/L (22-30); Chloride 101.3 mmol/L (98-107); Glucose 120 mg/dL (75-100); Lipase 32 units/L (13-60); Sodium 134 mmol/L (137-145); Total Protein 6.7 g/dL (6.3-8.2)
--- NOTE | 2016-06-27 06:19 | Emergency Department Report ---
ED Abdominal Pain HPI - General Chief Complaint: Abdominal Pain Stated Complaint: ABD PAIN Time Seen by Provider: 06/27/16 06:16 Source: patient Mode of arrival: Stretcher Limitations: No Limitations - History of Present Illness Initial Comments: The patient states that he was awoken from sleep by a "grabbing" left lower quadrant pain which did not radiate. It is persistent. He states he's not had pain like this before. He denies diarrhea nausea or vomiting. He's had no apparent fever or chills. He denies previous abdominal surgery. He denies a history of kidney stone or family predisposition. He reports no alteration in urination. Denies a history of previous colonoscopy or diverticular disease. MD Complaint: abdominal pain -: During the night, unknown Location: LLQ Radiation: none Migration to: no migration Severity scale (0 -10): 4 Quality: other Consistency: constant Improves With: nothing Worsens With: nothing Associated Symptoms: denies other symptoms - Related Data Home Medications Medication Instructions Recorded Confirmed Last Taken Aspirin [Adult Low Dose Aspirin EC] 81 mg PO QDAY 02/12/15 05/21/16 Unknown Multivitamin Tab [Multiple Vitamin 1 each PO QDAY 02/12/15 05/21/16 Unknown TAB (Theragran)] Albuterol 2 mg PO BID 05/21/16 05/21/16 Unknown Allergy 180 mg PO DAILY 05/21/16 05/21/16 Unknown Breo Ellipta 100-25 Mcg INH 1 puff IH HS 05/21/16 05/21/16 Unknown Dorzolamide HCl 1 drop OU TID 05/21/16 05/21/16 Unknown Latanoprost 0.005% 1 drop OU HS 05/21/16 05/21/16 Unknown Mucinex ER 1 tab PO BID 05/21/16 05/21/16 Unknown Stiolto Respimat Inhal [place] 1 puff IH HS 05/21/16 05/21/16 Unknown Ventolin HFA 2 puff IH Q6H PRN 05/21/16 05/21/16 Unknown methylPREDNISolone 24 mg PO DAILY 05/21/16 05/21/16 Unknown Previous Rx's Medication Instructions Recorded Last Taken Type HYDROcodone/APAP 5-325 [Sabinal 1 each PO Q6HR PRN #10 tablet 05/26/16 Unknown Rx 5/325] Levofloxacin [Levaquin TAB] 500 mg PO QDAY #7 tablet 05/26/16 Unknown Rx metroNIDAZOLE [Flagyl] 500 mg PO Q8HR #21 tablet 05/26/16 Unknown Rx traMADol [Ultram] 50 mg PO Q6HR PRN #20 tablet 06/27/16 Unknown Rx Allergies Allergy/AdvReac Type Severity Reaction Status Date / Time No Known Allergies Allergy Unverified 06/20/14 04:03 ED Review of Systems ROS: Stated complaint: ABD PAIN Other details as noted in HPI Constitutional: denies: chills, fever Eyes: denies: eye pain, eye discharge, vision change ENT: denies: ear pain, throat pain Respiratory: denies: cough, shortness of breath (apparently stated this in triage but does not complain of this to me), wheezing Cardiovascular: denies: chest pain, palpitations Endocrine: no symptoms reported Gastrointestinal: abdominal pain. denies: nausea, diarrhea Genitourinary: denies: urgency, dysuria Musculoskeletal: denies: back pain, joint swelling, arthralgia Skin: denies: rash, lesions Neurological: denies: headache, weakness, paresthesias Psychiatric: denies: anxiety, depression Hematological/Lymphatic: denies: easy bleeding, easy bruising ED Past Medical Hx - Past Medical History Previous Medical History?: Yes Hx Hypertension: Yes Hx Pulmonary Embolism: No Hx COPD: Yes Hx Tuberculosis: No Additional medical history: GLAUCOMA, shingles. bronchitis - Surgical History Past Surgical History?: Yes Additional Surgical History: pacemaker - Social History Smoking Status: Former Smoker Substance Use Type: None - Medications Home Medications: Home Medications Medication Instructions Recorded Confirmed Last Taken Type Aspirin [Adult Low Dose Aspirin EC] 81 mg PO QDAY 02/12/15 05/21/16 Unknown History Multivitamin Tab [Multiple Vitamin 1 each PO QDAY 02/12/15 05/21/16 Unknown History TAB (Theragran)] Albuterol 2 mg PO BID 05/21/16 05/21/16 Unknown History Allergy 180 mg PO DAILY 05/21/16 05/21/16 Unknown History Breo Ellipta 100-25 Mcg INH 1 puff IH HS 05/21/16 05/21/16 Unknown History Dorzolamide HCl 1 drop OU TID 05/21/16 05/21/16 Unknown History Latanoprost 0.005% 1 drop OU HS 05/21/16 05/21/16 Unknown History Mucinex ER 1 tab PO BID 05/21/16 05/21/16 Unknown History Stiolto Respimat Inhal [place] 1 puff IH HS 05/21/16 05/21/16 Unknown History Ventolin HFA 2 puff IH Q6H PRN 05/21/16 05/21/16 Unknown History methylPREDNISolone 24 mg PO DAILY 05/21/16 05/21/16 Unknown History HYDROcodone/APAP 5-325 [Sabinal 1 each PO Q6HR PRN #10 tablet 05/26/16 Unknown Rx 5/325] Levofloxacin [Levaquin TAB] 500 mg PO QDAY #7 tablet 05/26/16 Unknown Rx metroNIDAZOLE [Flagyl] 500 mg PO Q8HR #21 tablet 05/26/16 Unknown Rx traMADol [Ultram] 50 mg PO Q6HR PRN #20 tablet 06/27/16 Unknown Rx ED Physical Exam - General Limitations: No Limitations General appearance: alert, in no apparent distress - Head Head exam: Present: atraumatic, normocephalic - Eye Eye exam: Present: normal appearance. Absent: scleral icterus - ENT ENT exam: Present: normal exam, mucous membranes moist - Neck Neck exam: Present: normal inspection - Respiratory Respiratory exam: Present: normal lung sounds bilaterally. Absent: respiratory distress - Cardiovascular Cardiovascular Exam: Present: regular rate, normal rhythm. Absent: systolic murmur, diastolic murmur, rubs, gallop - GI/Abdominal GI/Abdominal exam: Present: soft, tenderness (some tenderness noted to deep palpation in the left lower quadrant), normal bowel sounds. Absent: distended, guarding, rebound, rigid, organomegaly, mass, bruit, pulsatile mass, hernia - Rectal Rectal exam: Present: deferred - Extremities Exam Extremities exam: Present: normal inspection - Back Exam Back exam: Present: normal inspection. Absent: CVA tenderness (R), CVA tenderness (L) - Neurological Exam Neurological exam: Present: alert, oriented X3, CN II-XII intact. Absent: motor sensory deficit - Psychiatric Psychiatric exam: Present: normal affect, normal mood - Skin Skin exam: Present: warm, dry, intact, normal color. Absent: rash ED Course Vital Signs 06/27/16 06/27/16 06/27/16 04:23 04:30 04:40 Temperature Pulse Rate 86 84 86 Respiratory 20 17 23 Rate Blood Pressure 139/73 139/73 117/70 Blood Pressure [Left] O2 Sat by Pulse 92 92 Oximetry 06/27/16 06/27/16 06/27/16 04:42 04:44 04:50 Temperature 98.2 F Pulse Rate 88 88 Respiratory 14 14 26 H Rate Blood Pressure 127/76 Blood Pressure 139/73 [Left] O2 Sat by Pulse 92 92 93 Oximetry 06/27/16 06/27/16 06/27/16 05:00 05:10 05:20 Temperature Pulse Rate 84 84 85 Respiratory 21 23 24 Rate Blood Pressure 123/73 127/76 132/76 Blood Pressure [Left] O2 Sat by Pulse 91 93 92 Oximetry 06/27/16 06/27/16 06/27/16 05:30 05:40 05:50 Temperature Pulse Rate 84 86 86 Respiratory 25 H 23 24 Rate Blood Pressure 120/74 132/76 135/70 Blood Pressure [Left] O2 Sat by Pulse 90 91 91 Oximetry 06/27/16 06/27/16 06/27/16 06:00 06:10 06:20 Temperature Pulse Rate 86 86 85 Respiratory 16 13 24 Rate Blood Pressure 126/66 120/74 121/61 Blood Pressure [Left] O2 Sat by Pulse 89 90 90 Oximetry 06/27/16 06/27/16 06/27/16 06:30 06:40 06:50 Temperature Pulse Rate 86 86 86 Respiratory 20 22 15 Rate Blood Pressure 109/68 109/68 121/70 Blood Pressure [Left] O2 Sat by Pulse 90 90 91 Oximetry 06/27/16 06/27/16 06/27/16 07:00 07:10 08:39 Temperature Pulse Rate 85 84 85 Respiratory 15 20 22 Rate Blood Pressure 121/70 121/70 Blood Pressure 112/75 [Left] O2 Sat by Pulse 91 90 95 Oximetry - Reevaluation(s) Reevaluation #1: Somewhat remarkably, the family has considerably altered the history of this patient's left lower quadrant/lateral abdominal pain. They now state that he fell on this area one week before his pacemaker placement which was approximately 5 weeks ago. They state clearly he's been having this very same pain intermittently for now 6 weeks. 06/27/16 09:34 Reevaluation #2: Patient now states the pain has "cured up". He does not want anything else for pain. I will give him a prescription for Ultram. His lactic acid level was normal. I don't see any indication for admission or further evaluation at this time. Thus, follow up with his primary care provider is recommended. 06/27/16 09:37 ED Medical Decision Making - Lab Data Result diagrams: 06/27/16 04:05 06/27/16 04:05 Laboratory Results - last 24 hr 06/27/16 06/27/16 06/27/16 04:05 04:05 04:05 WBC 10.8 RBC 4.37 Hgb 12.9 Hct 39.1 MCV 90 MCH 30 MCHC 33 RDW 14.1 Plt Count 198 Lymph % (Auto) 12.9 L [place] % (Auto) 8.8 H Eos % (Auto) 1.4 Baso % (Auto) 0.5 Lymph # 1.4 [place] # 1.0 H Eos # 0.2 Baso # 0.1 Seg Neutrophils % 76.4 H Seg Neutrophils # 8.2 H Sodium 134 L Potassium 4.0 Chloride 101.3 Carbon Dioxide 17 L Anion Gap 20 BUN 22 H Creatinine 1.0 Estimated GFR > 60 BUN/Creatinine Ratio 22.00 Glucose 120 H Calcium 8.9 Total Bilirubin 0.60 AST 23 ALT 19 Alkaline Phosphatase 69 Troponin T < 0.010 Total Protein 6.7 Albumin 3.5 L Albumin/Globulin Ratio 1.1 Lipase 32 Laboratory Results - last 24 hr 06/27/16 06/27/16 06/27/16 04:05 04:05 04:05 WBC 10.8 RBC 4.37 Hgb 12.9 Hct 39.1 MCV 90 MCH 30 MCHC 33 RDW 14.1 Plt Count 198 Lymph % (Auto) 12.9 L [place] % (Auto) 8.8 H Eos % (Auto) 1.4 Baso % (Auto) 0.5 Lymph # 1.4 [place] # 1.0 H Eos # 0.2 Baso # 0.1 Seg Neutrophils % 76.4 H Seg Neutrophils # 8.2 H Sodium 134 L Potassium 4.0 Chloride 101.3 Carbon Dioxide 17 L Anion Gap 20 BUN 22 H Creatinine 1.0 Estimated GFR > 60 BUN/Creatinine Ratio 22.00 Glucose 120 H Lactic Acid Calcium 8.9 Total Bilirubin 0.60 AST 23 ALT 19 Alkaline Phosphatase 69 Troponin T < 0.010 Total Protein 6.7 Albumin 3.5 L Albumin/Globulin Ratio 1.1 Lipase 32 Urine Color Urine Turbidity Urine pH Ur Specific [place] Urine Protein Urine Glucose (UA) Urine Ketones Urine Blood Urine Nitrite Urine Bilirubin Urine Urobilinogen Ur Leukocyte Esterase Urine WBC (Auto) Urine RBC (Auto) Urine Mucus 06/27/16 06/27/16 05:46 08:49 WBC RBC Hgb Hct MCV MCH MCHC RDW Plt Count Lymph % (Auto) [place] % (Auto) Eos % (Auto) Baso % (Auto) Lymph # [place] # Eos # Baso # Seg Neutrophils % Seg Neutrophils # Sodium Potassium Chloride Carbon Dioxide Anion Gap BUN Creatinine Estimated GFR BUN/Creatinine Ratio Glucose Lactic Acid 1.00 Calcium Total Bilirubin AST ALT Alkaline Phosphatase Troponin T Total Protein Albumin Albumin/Globulin Ratio Lipase Urine Color Yellow Urine Turbidity Clear Urine pH 5.0 Ur Specific [place] 1.017 Urine Protein <15 mg/dl Urine Glucose (UA) Neg Urine Ketones Neg Urine Blood Sm Urine Nitrite Neg Urine Bilirubin Neg Urine Urobilinogen < 2.0 Ur Leukocyte Esterase Neg Urine WBC (Auto) < 1.0 Urine RBC (Auto) 3.0 Urine Mucus Few - EKG Data -: EKG Interpreted by Me - EKG Data Interpretation: other (EKG shows apparent ventricular pacing with atrial sensing and complete capture) - Radiology Data interpreted by me: Chest x-ray shows chronic changes implantable pacemaker and no acute process. Critical care attestation.: If time is entered above; I have spent that time in minutes in the direct care of this critically ill patient, excluding procedure time. ED Disposition Clinical Impression: Abdominal wall pain in left lower quadrant COPD (chronic obstructive pulmonary disease) Qualifiers: COPD type: unspecified COPD Qualified Code(s): J44.9 - Chronic obstructive pulmonary disease, unspecified Disposition: DISCHARGED TO HOME OR SELFCARE Is pt being admited?: No Does the pt Need Aspirin: No Condition: Stable Instructions: Chronic Obstructive Pulmonary Disease (ED) Additional Instructions: Follow-up with your primary care provider and pulmonary doctor specialist. Return any acute change or problem. Rx as needed for pain as prescribed. Prescriptions: traMADol [Ultram] 50 mg PO Q6HR PRN #20 tablet PRN Reason: Pain Referrals: PRIMARY CARE, [Primary Care Provider] - 2-3 Days Time of Disposition: 09:40
[2016-06-27 06:35] LABS: Bilirubin,Urine NEG (Negative); Blood,Urine SM (Negative); Ketones,Urine NEG (Negative); Leukocyte Esterase,Urine NEG (Negative); Mucus,Urine FEW /HPF; Nitrite,Urine NEG (Negative); Protein,Urine <15 mg/dL mg/dL (Negative); Urobilinogen,Urine < 2.0 mg/dL (<2.0); WBC,Urine < 1.0 /HPF (0.0-6.0)
[2016-06-27] MEDS ORDERED: PROTONIX IV ONE (06:50)
[2016-06-27] MEDS ORDERED: MORPHINE IV ONE (06:50)
[2016-06-27] MEDS ORDERED: ZOFRAN IV ONE (06:50)
[2016-06-27] MEDS ORDERED: NACL 0.9% 1000 ML 1,000 ML IV ONE (06:51)
[2016-06-27] MEDS ORDERED: NACL ONE (07:00)
[2016-06-27] MEDS ORDERED: ZOSYN/NS 4.5GM/100ML 4.5 GM/100 ML VIAL IV ONE (07:00)
--- NOTE | 2016-06-27 08:26 | Cat Scan Report ---
FINAL REPORT PROCEDURE: CT ABDOMEN PELVIS W CON TECHNIQUE: Computerized axial tomography of the abdomen and pelvis was performed after the IV injection of iodinated nonionic contrast. HISTORY: LLQ pain COMPARISON: Contrast-enhanced CT of the abdomen and pelvis 05/21/2016 FINDINGS: Visualized lower thorax: Mild bibasilar subsegmental atelectasis and pulmonary emphysema. Resolved right pleural effusion. Tiny left pleural effusion. Intracardiac device in place. Liver: Few calcified granulomas. Spleen: Few calcified granulomas. Gallbladder and biliary system: Gallbladder wall subtly indistinct. Pancreas: Normal. Adrenals: Adenomatous change versus hyperplasia left worse than right. Kidneys: Normal. GI tract: Limited in evaluation without oral contrast. No bowel obstruction or gross focal bowel abnormality.. Lymph nodes and mesentery: Normal. Vasculature: Atherosclerosis. No abdominal aortic aneurysm. Bladder: Distended without focal lesion. Reproductive organs: Normal. Peritoneum: No free fluid. Musculoskeletal structures: No significant abnormality. Other: None. IMPRESSION: Gallbladder wall subtly indistinct. Correlate clinically for possible gallbladder symptomatology and if suspected consider ultrasound and nuclear medicine hepatobiliary scan for further evaluation. Resolved small right pleural effusion. New trace left pleural effusion. Bibasilar pulmonary emphysema. Subtle prior granulomatous exposure. Adenomatous change versus hyperplasia of the adrenal glands.
[2016-06-27 08:39] VITALS: BP 112/75
--- NOTE | 2016-06-28 13:59 | XRay Report ---
PA and lateral chest: SOB. The cardiac contour is normal in size and shape. Bipolar pacemaker is present with intact leads. The lungs are hyperinflated and there is a generally coarse interstitial pattern significantly worse at the left lung base. No focal infiltrate or nodule. Compared to a prior study on May 20, 2016 the increased markings at the left base do appear new as is the pacemaker. Impression: Left basilar atelectasis/infiltrate. Chronic lung disease. Interval placement of pacemaker.
== END 2016-06-27 09:59 | disposition home or self-care (01) ==
LOC: ED 03:27
DX: R10.32 Left lower quadrant pain (principal); J44.9 Chronic obstructive pulmonary disease, unspecified; I10 Essential (primary) hypertension; Z87.891 Personal history of nicotine dependence; Z79.82 Long term (current) use of aspirin
CPT/HCPCS: 36415; 71020; 74177; 80053; 81001; 82140; 83690; 84484; 85025; 93005; 93010; 96365; 96375; 99284; C9113; J2270; J2405; J2543; J7030; Q9967